=== PATIENT | male | born 1955 | race Caucasian/White ===

== ENCOUNTER → 2017-09-27 10:33 | Outpatient (CLI) | payer MEDICARE, SELFPAY ==
--- NOTE | 2017-09-27 10:37 | ECHOD_ITS ---
Reason For Study: Aortic Stenosis Procedure This was a 2D Doppler, Color Flow transthoracic echocardiogram. The study was technically difficult. Due to body habitus. Exam performed in department. Left Ventricle Normal LV size. Moderately severe segmental systolic dysfunction (see wall motion). The estimated ejection fraction is 30 %. Anterio-Basal: Normal. Lateral-Basal: Normal. Infero-Basal: Akinetic. Mid-Lateral : Normal. Mid-Posterior: Normal. Posterior-Basal: Normal. Mid-anteroseptal : Akinetic. Rest of the vera hypokinetic. Right Ventricle Normal RV size. Normal systolic function. Atria Normal left atrium. Normal right atrium. Mitral Valve Normal mitral valve. Tricuspid Valve Normal tricuspid valve. Mild (1+) tricuspid valve insufficiency. Aortic Valve Trisinus/trileaflet aortic valve. Mild focal aortic valve calcification. Peak aortic valve gradient 48 mmHg. Mean aortic valve gradient 28 mmHg. Calculated aortic valve area (continuity equation) is 0.8 cm2. Mild (1+) eccentric aortic valve insufficiency. Pulmonic Valve Normal pulmonic valve. Great Vessels Normal aortic root. The pulmonary artery is normal size. Normal inferior vena cava. Pericardium/Pleural No pericardial effusion. MMode/2D Measurements & Calculations LVIDd: 5.3 cm IVSd: 1.1 cm LVOT diam: 2.2 cm LVIDs: 4.3 cm LVPWd: 1.1 cm LVOT area: 3.9 cm2 RVDd: 2.8 cm FS: 18.8 % Ao root diam: 2.9 cm LAV(MOD-bp): 56.6 ml LA A4 area: 19.2 cm2 LA dimension: 3.9 cm LAV(MOD-bp) Indexed: 25.4 ml/m2 LAV(MOD-sp2): 51.4 ml LAV(MOD-sp4): 58.8 ml RA A4 area: 10.5 cm2 Doppler Measurements & Calculations MV E max ronnie: 96.0 cm/sec Lat Peak E' Ronnie: 8.2 cm/sec Med Peak E' Ronnie: 5.6 cm/sec MV A max ronnie: 124.5 cm/sec E/E' lat: 11.7 E/E' med: 17.1 MV E/A: 0.77 Ao V2 max: 345.7 cm/sec AI max ronnie: 404.7 cm/sec LV V1 max: 71.3 cm/sec Ao max P.8 mmHg AI max P.7 mmHg LV V1 max P.0 mmHg Ao V2 mean: 253.6 cm/sec AI dec slope: 369.2 cm/sec2 LV V1 mean P.93 mmHg Ao mean P.0 mmHg AI P1/2t: 321.0 msec LV V1 mean: 45.5 cm/sec Ao V2 VTI: 73.7 cm LV V1 VTI: 16.8 cm JAIME(I,D): 0.90 cm2 JAIME(V,D): 0.81 cm2 SV(LVOT): 66.2 ml PA V2 max: 115.3 cm/sec TR max ronnie: 210.4 cm/sec TR max P.7 mmHg Interpretation Summary Normal LV size. Moderately severe segmental systolic dysfunction (see wall motion). The estimated ejection fraction is 30 %. Mild focal aortic valve calcification. Mean aortic valve gradient 28 mmHg. Mild (1+) eccentric aortic valve insufficiency. Calculated aortic valve area (continuity equation) is 0.8 cm2. Low flow low gradient likely Ordering Physician: Diann Arroyo Performed By: Sada Gonzalez RDCS, RVT
== END ==
PROVIDERS: Visit Provider Physician Assistant Medical
DX: I35.0 Nonrheumatic aortic (valve) stenosis (principal); I43 Cardiomyopathy in diseases classified elsewhere
CPT/HCPCS: 93306

== ENCOUNTER → 2017-10-04 09:07 | Outpatient (CLI) | payer MEDICARE, SELFPAY ==
--- NOTE | 2017-10-04 09:10 | RAD_ITS ---
STUDY: X-RAY CHEST REASON FOR EXAM: Male, 62 years old. Pre heart catheter. TECHNIQUE: Frontal and lateral views of the chest. COMPARISON: None. FINDINGS: The lungs are clear and expanded. There is no demonstrated pleural abnormality. Normal size heart. Normal mediastinum and merrick. Normal visualized pulmonary arteries. Normal visualized aortic arch and descending thoracic aorta. There are diffuse degenerative changes of the visualized thoracic spine. Previous cervical spine surgery. Normal visualized ribs, clavicles, and shoulders. There is no demonstrated abnormality of the visualized soft tissue structures of the upper abdomen. RAD/Chest PA and Lateral IMPRESSION: No acute chest disease. Electronically Signed: Earnest Booker MD at 16:52 EDT , Service support ,
[2017-10-04 10:09] LABS: Hematocrit 45.8 % (40-54); Hemoglobin 15.6 g/dl (13.0-16.5); Mean Corp Hgb Conc 34.1 g/gl (32-36); Mean Corpuscular Hgb 28.9 pg (27.0-32.0); Mean Platelet Vol. 10.4 fl (6.2-12.0); Platelet Count 181 K/mm3 (150-450); RBC Distribution Width CV 13.5 % (11.6-14.6); RBC Distribution Width SD 41.9 fl (35.1-43.9); Red Blood Count 5.39 M/mm3 (4.6-6.2); White Blood Count 6.7 K/mm3 (4.4-11.0)
[2017-10-04 10:14] LABS: Scan Indicated on CBC? Y/N NO
[2017-10-04 10:34] LABS: Anion Gap 8 (5-15); BUN 23 mg/dL (7-18); BUN/Creat Ratio 16.5 RATIO (10-20); Calcium,Total 9.2 mg/dL (8.5-10.1); Chloride 100 mmol/L (98-107); Creatinine, Serum 1.39 mg/dL (0.70-1.30); EST Glomerular Filtration Rate 55 mL/min (>60); Est Glom Filt Rate - Afr Amer 67 mL/min (>60); Glucose 226 mg/dL (74-106); Potassium 4.4 mmol/L (3.5-5.1); Sodium Level 135 mmol/L (136-145)
== END ==
PROVIDERS: Visit Provider Internal Medicine Cardiovascular Disease
DX: I50.9 Heart failure, unspecified (principal); I43 Cardiomyopathy in diseases classified elsewhere; I35.0 Nonrheumatic aortic (valve) stenosis
CPT/HCPCS: 36415; 71046; 80048; 85027

== ENCOUNTER → 2017-10-11 06:45 | Day surgery (SDC) | payer MEDICARE, SELFPAY ==
[2017-10-08 09:34] VITALS: BMI 36.1
[2017-10-11 10:36] LABS: Blood Gas Specimen Type VEN; VBG BASE EXCESS -2 mmol/L (-1.0-3.5); VBG Bicarbonate 23 mmol/L (22-26); VBG Oxygen Content 25 mmol/L (23-33); VBG PO2 39 mmHg (25-40); VBG SO2 71 % (50-70); VBG pCO2 42.4 mmHg (41-51); VBG pH 7.35 (7.32-7.42)
[2017-10-11 10:36] LABS: Base Excess -4 mmol/L (-2 to +2); Bicarbonate 20.7 mmol/L (22-26); Blood Gas Specimen Type ART; PO2 87 mmHG (75-100); SO2 97 % (95-99); Total Carbon Dioxide 22 mmol/L; pCO2 34.1 mmHg (35-45); pH 7.39 (7.35-7.45)
[2017-10-11 10:36] LABS: Blood Gas Specimen Type VEN; VBG BASE EXCESS -9 mmol/L (-1.0-3.5); VBG Bicarbonate 18 mmol/L (22-26); VBG Oxygen Content 19 mmol/L (23-33); VBG PO2 39 mmHg (25-40); VBG SO2 69 % (50-70); VBG pCO2 36.3 mmHg (41-51)
--- NOTE | 2017-10-11 10:46 | CL.D_ITS ---
Patient Name: RIGOBERTO NOLAND Study Date: 10/11/2017 Performing: Rui Walters MD Ht: 68.89 inches 175 cm : 1955 Wt: 244.71 lbs 111 kg Age: 62 Gender: male BSA: 2.25 PROCEDURE(S) PERFORMED ZJ15-MAT/LHC/COR/LV CLINICAL PROFILE AND INDICATIONS Indications: Other Heart Failure: None Stress/Imaging Stress/Image Study Performed: No Angina Classification Anginal Classification w/in 2 Weeks: No symptoms CAD Presentations: No Sxs, no angina. CONCLUSIONS Coronary artery disease with stenosis involving the diagonal branch, proximal circumflex artery, prox imal and distal right coronary artery. RECOMMENDATIONS Surgery consult for coronary revascularization Surgery consult for Valve Replacement surgery DESCRIPTION OF PROCEDURE The patient arrived to the procedure lab. The risks and benefits of the procedure as well as a full d escription of our services here and current unavailability of surgical backup were fully explained to the patient and/or their significant other prior to the catheterization. The Timeout was completed, verifying the correct patient and procedure. The patient's procedural site was prepped and draped in the usual fashion. Local anesthetic was given subcutaneously to right groin region with Lidocaine 2%. Using a modified Seldinger technique, arterial access was obtained via the right femoral artery, a 5 Fr sheath was inserted. Venous access was obtained via the right femoral vein, a 7Fr sheath was inser roberta. A 7Fr thermal dilution catheter was inserted and right heart pressures were recorded, it was the n advanced to PA position for cardiac outputs. O2 saturations were then obtained. The Thermal dilutio n catheter was then removed. Left Coronary Artery selective angiography was performed in multiple vie ws using a 5 Fr. JL4 catheter. Right Coronary Artery selective angiography was then performed in mult iple views using a 5 Fr. 3DRC (Anselmo) catheter. Left Ventriculography was performed in SALAZAR project ion using a 5 Fr. Pigtail catheter.The arterial sheath was pulled and a Mynx closure device was deplo yed for hemostasis. The venous sheath was then pulled and manual compression applied until hemostasis achieved CORONARY ANGIOGRAPHY DOMINANCE: Right Dominant LEFT HEART ASSESSMENT Left Ventricular Ejection Fraction: by LV Gram 35 % Depressed Left Ventricular systolic function RIGHT HEART ASSESSMENT Thermal CO: 5.58 Thermal CI: 2.48 Debra CO: 5.04 Debra CI: 2.24 PW: 24 PA: 39/9 29 RV: 41/8 11 RA: 7 8 PVR: 72 SVR: 1090 Aortic Valve Area: 0.82 Aortic Valve Index: 0.37 Aortic Valve Mean Gradient: 36.8 LEFT MAIN: Mild calcification, Angiographically normal LEFT ANTERIOR DECENDING ARTERY: Moderate calcification PROX LAD: Moderate luminal irregularities up to 50% DIAGONAL 1: Proximal - 80 % Stenosis CIRCUMFLEX ARTERY: PROX CIRC: 80 % Stenosis MID CIRC: Moderate luminal irregularities up to 50% RAMUS: Mild luminal irregularities RIGHT CORONARY ARTERY: PROX RCA: 85 % Stenosis MID RCA: Mild luminal irregularities less than 30% DISTAL RCA: Bifurcation of the posterior lateral as well as the right coronary artery posterior desce nding artery both have proximal 70-80% stenotic lesion. VALVE FINDINGS: Aortic Valve Stenosis - severe COMPLICATIONS No Complications PROCEDURE MEDICATIONS Versed 1 mg IV Benadryl 50 mg IV @ 10/11/2017 09:46:33 Solu-medrol 125 mg IV 10/11/2017 09:46:45 SUMMARY OF HEMODYNAMIC DATA Time AIR REST ECG 07:19:24 RA 107 (8) SV 10:01:33 RV 41/8, 11 10:01:56 PW (24) PV 10:02:22 PA 39/9 (29) PA 10:02:39 PA 39/17 (29) 10:05:56 RV 40/6, 10 10:06:06 RA 9/8 (8) 10:06:22 AO 102/70 (84) SA 10:07:47 LV 154/20, 26 10:14:22 LV 165/0, 22 10:14:43 LV 162/3, 34 10:15:50 LVp 158/0, 35 10:16:02 AOp 120/68 (92) 10:16:07 Valve Area (c P-P/ms Time AIR REST Aortic 0.82 36.8 mn/284 ms 38.0 pk/284 ms 10:16:02 Type SV CO (l/m) CI (l/m/ HR Time AIR REST Thermal 58.10 5.58 2.48 96 07:19:24 Debra 52.50 5.04 2.24 96 07:19:24 Label % O2 Pres/Loc Time AIR REST AO 97 PV 10:10:23 RA 69 SV 10:10:30 PA 71 PA 10:10:37 Signed By Rui Walters MD On 10/11/2017 10:46:07 Rui Walters MD
== END ==
PROVIDERS: Visit Provider Internal Medicine Cardiovascular Disease
DX: I25.10 Atherosclerotic heart disease of native coronary artery without angina pectoris (principal); I43 Cardiomyopathy in diseases classified elsewhere; I35.0 Nonrheumatic aortic (valve) stenosis; E78.5 Hyperlipidemia, unspecified; I50.9 Heart failure, unspecified; E11.51 Type 2 diabetes mellitus with diabetic peripheral angiopathy without gangrene; I70.209 Unspecified atherosclerosis of native arteries of extremities, unspecified extremity; R01.1 Cardiac murmur, unspecified; Z98.1 Arthrodesis status; Z79.84 Long term (current) use of oral hypoglycemic drugs; Z79.899 Other long term (current) drug therapy
CPT/HCPCS: 82803; 93460; 99152; 99153; C1760; J7030; A4216; C1751; C1769; C1894; Q9967

== ENCOUNTER → 2017-12-27 09:45 | Outpatient (CLI) | payer MEDICARE, SELFPAY ==
[2017-12-27 10:25] LABS: International Normalized Ratio 2.8; Prothrombin Time (Protime)PT. 29.3 SECONDS (11.7-14.9)
== END ==
PROVIDERS: Visit Provider Internal Medicine Cardiovascular Disease
DX: Z95.2 Presence of prosthetic heart valve (principal); Z79.01 Long term (current) use of anticoagulants
CPT/HCPCS: 36415; 85610

== ENCOUNTER → 2018-01-10 09:29 | Outpatient (CLI) | payer MEDICARE, SELFPAY ==
[2018-01-10 10:25] LABS: International Normalized Ratio 1.6; Prothrombin Time (Protime)PT. 19.3 SECONDS (11.7-14.9)
== END ==
PROVIDERS: Visit Provider Internal Medicine Cardiovascular Disease
DX: Z95.2 Presence of prosthetic heart valve (principal); Z79.01 Long term (current) use of anticoagulants
CPT/HCPCS: 36415; 85610

== ENCOUNTER 2018-01-24 08:53 | Outpatient (RCR) | payer MEDICARE, SELFPAY ==
[2018-01-24 10:29] LABS: International Normalized Ratio 2.1; Prothrombin Time (Protime)PT. 23.4 SECONDS (11.7-14.9)
== END 2018-01-24 10:00 | disposition home or self-care (01) ==
LOC: LAB 08:53
PROVIDERS: Visit Provider Internal Medicine Cardiovascular Disease
DX: Z95.2 Presence of prosthetic heart valve (principal); Z79.01 Long term (current) use of anticoagulants
CPT/HCPCS: 36415; 85610

== ENCOUNTER 2018-02-21 09:14 | Outpatient (RCR) | payer MEDICARE, SELFPAY ==
[2018-02-07 10:29] LABS: International Normalized Ratio 1.9; Prothrombin Time (Protime)PT. 22.2 SECONDS (11.7-14.9)
[2018-02-21 09:54] LABS: Absolute Lymphocyte Count 0.82 X10^3/ul (0.83-4.51); Absolute Neutrophil Count 5.8 X10^3/uL (2.0-7.7); Basophil# 0.01 X10^3/uL; Basophil% 0.1 % (0-1); Eosinophil# 0.27 X10^3/uL; Eosinophils% 3.7 % (0-5); Hematocrit 45.3 % (40-54); Hemoglobin 13.9 g/dl (13.0-16.5); Lymphocyte # 0.82 X10^3/ul (4.0); Lymphocyte % 11.2 % (19-41); Mean Corp Hgb Conc 30.7 g/gl (32-36); Mean Corpuscular Hgb 24.6 pg (27.0-32.0); Mean Corpuscular Volume 80.2 fL (80-94); Mean Platelet Vol. 9.4 fl (6.2-12.0); Monocyte# 0.39 X10^3/uL; Monocyte% 5.3 % (0-10); Neutrophil # 5.83 X10^3/uL (2.7-7.7); Neutrophil % 79.6 % (47-70); Platelet Count 171 K/mm3 (150-450); RBC Distribution Width CV 17.3 % (11.6-14.6); RBC Distribution Width SD 50.5 fl (35.1-43.9); Red Blood Count 5.65 M/mm3 (4.6-6.2); White Blood Count 7.3 K/mm3 (4.4-11.0)
[2018-02-21 09:59] LABS: POSITIVE COUNT NO; POSITIVE DIFFERENTIAL NO; POSITIVE MORPHOLOGY NO
[2018-02-21 10:05] LABS: International Normalized Ratio 2.4; Prothrombin Time (Protime)PT. 25.9 SECONDS (11.7-14.9)
[2018-02-21 10:21] LABS: Anion Gap 7 (5-15); BUN 20 mg/dL (7-18); BUN/Creat Ratio 15.2 RATIO (10-20); Calcium,Total 8.9 mg/dL (8.5-10.1); Chloride 104 mmol/L (98-107); Creatinine, Serum 1.32 mg/dL (0.70-1.30); EST Glomerular Filtration Rate 58 mL/min (>60); Est Glom Filt Rate - Afr Amer 71 mL/min (>60); Glucose 177 mg/dL (74-106); Potassium 3.8 mmol/L (3.5-5.1); Sodium Level 137 mmol/L (136-145)
== END 2018-02-21 11:00 | disposition home or self-care (01) ==
LOC: LAB 09:14
PROVIDERS: Visit Provider Internal Medicine Cardiovascular Disease
DX: Z01.810 Encounter for preprocedural cardiovascular examination (principal); Z95.2 Presence of prosthetic heart valve; Z79.01 Long term (current) use of anticoagulants
CPT/HCPCS: 36415; 80048; 85025; 85610

== ENCOUNTER 2018-03-14 09:03 | Outpatient (RCR) | payer MEDICARE, SELFPAY ==
[2018-03-14 09:55] LABS: International Normalized Ratio 3.3; Prothrombin Time (Protime)PT. 33.9 SECONDS (11.7-14.9)
== END 2018-03-28 09:29 | disposition home or self-care (01) ==
LOC: LAB 09:03
PROVIDERS: Visit Provider Internal Medicine Cardiovascular Disease
DX: Z95.2 Presence of prosthetic heart valve (principal); Z79.01 Long term (current) use of anticoagulants
CPT/HCPCS: 36415; 85610

== ENCOUNTER 2018-04-18 09:15 | Outpatient (RCR) | payer MEDICARE, SELFPAY ==
[2018-03-28 14:37] LABS: International Normalized Ratio 2.6; Prothrombin Time (Protime)PT. 27.9 SECONDS (11.7-14.9)
[2018-04-18 10:03] LABS: International Normalized Ratio 2.4
== END 2018-04-18 11:00 | disposition home or self-care (01) ==
LOC: LAB 09:15
PROVIDERS: Referring Provider Internal Medicine Cardiovascular Disease; Visit Provider Internal Medicine Cardiovascular Disease
DX: Z95.2 Presence of prosthetic heart valve (principal); Z79.01 Long term (current) use of anticoagulants
CPT/HCPCS: 36415; 85610

== ENCOUNTER 2018-05-16 09:33 | Outpatient (RCR) | payer MEDICARE, SELFPAY ==
[2018-05-12 15:40] VITALS: BMI 36.3
[2018-05-16 10:30] LABS: International Normalized Ratio 2.6; Prothrombin Time (Protime)PT. 27.9 SECONDS (11.7-14.9)
== END 2018-05-27 12:18 | disposition home or self-care (01) ==
LOC: LAB 09:33
PROVIDERS: Referring Provider Internal Medicine Cardiovascular Disease; Visit Provider Internal Medicine Cardiovascular Disease
DX: Z95.2 Presence of prosthetic heart valve (principal); Z79.01 Long term (current) use of anticoagulants
CPT/HCPCS: 36415; 85610

== ENCOUNTER 2018-06-13 10:05 | Outpatient (RCR) | payer MEDICARE, SELFPAY ==
[2018-05-12 15:40] VITALS: BMI 36.3
[2018-06-13 11:26] LABS: International Normalized Ratio 2.3
--- OUTSIDE RECORDS SUMMARY | 2018-09-14 22:57 | XMS RPT_ITS | Summary of Care ---
:1955 Author Organization [facility] Address [address] [place] [address] Care Team Providers Name Role Phone Clyde Ramachandran DO Primary Care Provider Clyde Aguilar MD Unavailable Encounter Details Date Type Department Care Team Description 03/21/2018 PaceArt Device Check [facility] Heart & Vascular Arrived Physicians [address] [facility] [place] [address] Allergies Active Allergy Reactions Severity Noted Date Comments Meperidine 10/21/2017 Shellfish Derived 10/21/2017 as of this encounter Medications Prescription Sig. Disp. Refills Start Date End Date Status carvedilol (COREG) 25 Take 12.5 mg by 11/17/2017 Active MG tablet mouth 2 (two) times a day . acetaminophen Take 650 mg by Active (TYLENOL) 325 MG mouth every 6 tablet (six) hours as needed for fever or pain. amiodarone (CORDARONE) Take 200 mg by Active 200 MG tablet mouth daily . aspirin 81 mg chewable Chew and Swallow Active tablet 81 mg daily. esomeprazole (NEXIUM) Take 40 mg by Active 40 MG capsule mouth daily. insulin regular Inject 24 Units Active (HumuLIN R Regular under the skin 3 U-100 Insuln) 100 (three) times a unit/mL injection day before meals. 24 units with breakfast, 18 units with lunch, 24 units with dinner insulin NPH Inject 16 Units Active (HumuLIN,NovoLIN) 100 under the skin unit/mL injection nightly. warfarin (COUMADIN) 5 Take 5 mg by 12/17/2017 Active MG tablet mouth nightly as needed Take as directed per INR. docusate sodium Take 100 mg by Active (COLACE) 100 MG mouth 2 (two) capsule times a day. 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 as of this encounter Active Problems Problem Noted Date CAD (coronary artery disease) 11/09/2017 Essential hypertension 11/09/2017 Diabetes mellitus, type 2 (HCC) 11/09/2017 Hypercholesterolemia 11/09/2017 Aortic valve stenosis 11/09/2017 Social History Tobacco Use Types Packs/Day Years Used Date Never Smoker Smokeless Tobacco: Never Used Alcohol Use Drinks/Week oz/Week Comments No Sex Assigned at Date Recorded Not on file as of this encounter Plan of Treatment Upcoming Encounters Date Type Specialty Care Team Description 04/13/2018 Office Visit Endocrinology [facility], Pooja De Souza, SHEET METAL MECHANIC [address] [facility] [address] [place] [address] [phone] 04/26/2018 PaceArt Device Check Cardiology 04/26/2018 Clinical Support Cardiology Health Maintenance Due Date Last Done Comments CLASS III : ALT 1955 CLASS III : AST 1955 CLASS III : CXR 1955 CLASS III : EKG 1955 CLASS III : PFT 1955 CLASS III : TSH 1955 COLONOSCOPY 1955 HEPATITIS C SCREENING 1955 TETANUS EVERY 10 YR 1955 OPHTHALMOLOGY EXAM 1965 URINE MICROALBUMIN 1965 ZOSTER VACCINES (1 of 2) 2005 SEQUENTIAL INFLUENZA VACCINE (#1) 2018 HEMOGLOBIN A1C 04/22/2018 10/21/2017 FOOT EXAM 10/27/2018 10/27/2017 CLASS III : OFFICE VISIT 02/14/2019 02/14/2018, 01/11/2018, 10/27/2017, Additional history exists as of this encounter Implants Implanted Type Area Rotary Swaging Machine Operator Device Expiration Date Model / Identifier Serial / Lot Anthony [id number] Visia Af Mri Xt Vr [id number] ICD ANTHONY [id number] VISIA AF MRI XT VR / Implanted: 03/01/2018 (Quantity not on file) [id number] / Anthony 6935m Pacing Lead ANTHONY 6935M SPRINT QUATTRO SECURE S MRI SURESCAN / Sprint Quattro [id number] / Secure S Mri Surescan [id number] as of this encounter Procedures Procedure Name Priority Date/Time Associated Diagnosis Comments PACEART DEVICE Routine 03/21/2018 7:19 PM Results for this CHECK EDT procedure are in the results section. in this encounter Results Device Check (03/21/2018 7:19 PM) Date Time Interrogation [id number] [facility] Session Implantable Pulse Generator Medtronic [facility] Rotary Swaging Machine Operator Implantable Pulse Generator [id number] Visia AF MRI XT VR [facility] Model Implantable Pulse Generator [id number] [facility] Serial Number Implantable Pulse Generator Defibrillator [facility] Type Implantable Pulse Generator [id number] [facility] Implant Date Implantable Lead Rotary Swaging Machine Operator Medtronic [facility] Implantable Lead Model 6935M Sprint Quattro Secure S [facility] MRI SureScan Implantable Lead Serial [id number] [facility] Number Implantable Lead Implant Date [id number] [facility] Performing Organization Address City/State/Zipcode Phone Number [facility] [address] [facility] [place] [address] in this encounter
--- OUTSIDE RECORDS SUMMARY | 2018-09-14 22:57 | XMS RPT_ITS | Summary of Care ---
:[address] [facility] Address [address] [place] [address] Care Team Providers Name Role Phone Clyde Ramachandran DO Primary Care Provider Clyde Aguilar MD Unavailable Encounter Details Date Type Department Care Team Description 04/26/[address] 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 lisinopril Take 1 (one) 30 tablet 11 04/13/2018 04/13/2019 Active (PRINIVIL,ZESTRIL) 5 tablet (5 mg MG tablet total) by mouth daily. as of this encounter Active Problems [...] Encounters Date Type Specialty Care Team Description 08/02/2018 PaceArt Device Check Cardiology 08/18/2018 Office Visit Endocrinology Jerod Phoenix, NETWORK TECHNOLOGY INSTRUCTOR [address] [facility] [address] [place] [id number] [phone] Health Maintenance Due Date Last Done Comments [...] 10/27/2018 10/27/2017 CLASS III : OFFICE VISIT 04/13/2019 04/13/2018, 02/14/2018, 01/11/2018, Additional history exists as of this encounter Implants Implanted Type Area Personnel Manager Device Expiration Date Model / Identifier Serial / Lot Mdt [id number] Visia Af Mri Xt Vr [id number] ICD MDT [id number] VISIA AF MRI XT VR / Implanted: 03/01/2018 (Quantity not on file) [id number] / Antwon 6935m Pacing Lead MDT 6935M SPRINT QUATTRO SECURE S MRI SURESCAN / Sprint Quattro [id number] / Secure S Mri Surescan [id number] as of this encounter Procedures Procedure Name Priority Date/Time Associated Comments Diagnosis OUTPATIENT DEVICE Routine 04/26/2018 12:54 PM Results for this CLINIC REFERRAL EDT procedure are in the results section. in this encounter Results Outpatient Device Clinic Referral (04/26/2018 12:54 PM) Date Time Interrogation [id number] [facility] Session Implantable Pulse Generator Medtronic [facility] Personnel Manager Implantable Pulse Generator [id number] Visia AF MRI XT VR [facility] Model Implantable Pulse Generator [id number] [facility] Serial Number Implantable Pulse Generator Defibrillator [facility] Type Implantable Pulse Generator [id number] [facility] Implant Date Implantable Lead Personnel Manager Medtronic [facility] Implantable Lead Model 6935M Sprint Quattro Secure S [facility] MRI SureScan Implantable Lead Serial [id number] [facility] Number Implantable Lead Implant Date [id number] [facility] Performing Organization Address City/State/Zipcode Phone Number [facility] [address] [place] [address] in this encounter
--- OUTSIDE RECORDS SUMMARY | 2018-09-14 22:57 | XMS RPT_ITS | Summary of Care ---
:1955 Author Organization [facility] Address [address] [place] [address] Care Team Providers Name Role Phone Clyde Ramachandran DO Primary Care Provider Clyde Aguilar MD Unavailable Encounter Details Date Type Department Care Team Description 05/27/2018 Documentation [facility] Heart & Vascular Estelle Curiel RN Physicians [address] [place] [address] [place] [address] Allergies Active Allergy Reactions Severity [...] Not on file as of this encounter Progress Notes Estelle Curiel RN - 05/27/2018 1:20 PM ESTErrorin this encounter Plan of Treatment Upcoming Encounters Date Type Specialty Care Team Description 08/02/2018 PaceArt Device Check Cardiology 08/18/2018 Office Visit Endocrinology Jerod Phoenix, REPORT PROGRAMMER [address] [place] [address] [phone] Health Maintenance Due Date Last Done Comments [...] of this encounter Implants Implanted Type Area Account Administrator Device Expiration Date Model / Identifier Serial / Lot Anthony [id number] Visia Af Mri Xt Vr [id number] ICD MDT [id number] VISIA AF MRI XT VR / Implanted: 03/01/2018 (Quantity not on file) [id number] / Anthony 6935m Pacing Lead ANTHONY 6935M SPRINT QUATTRO SECURE S MRI SURESCAN / Sprint Quattro [id number] / Secure S Mri Surescan [id number] as of this encounter
--- OUTSIDE RECORDS SUMMARY | 2018-09-14 22:57 | XMS RPT_ITS | Summary of Care ---
:1955 Author Organization [facility] Address [address] [place] [address] Care Team Providers Name Role Phone Clyde Ramachandran DO Primary Care Provider Clyde Aguilar MD Unavailable Reason for Visit Reason Comments Optivol Education Encounter Details Date Type Department Care Team Description 04/26/2018 Clinical Support [facility] Heart & Arina Ramos CMA Vascular Physicians [address] [facility] [place] [address] Allergies Active Allergy Reactions Severity [...] Not on file as of this encounter Instructions Patient Instructions - Arina Ramos CMA - 04/26/2018 9:36 AM EDTPlease have construction checker call [facility] Heart and Vascular if they would like us to monitor Optivollevels and fax to them. Reviewed by EMELYN Bhatia Contact Arina Ramos CMA [phone] in this encounter Progress Notes Arina Ramos CMA - 04/26/2018 9:35 AM EDTDiscussed Optivol Monitoring. Pt follows general cardiology at [place]. Advised pt to discuss with construction checker if they would like us to monitor Optivol and send to them. Pt agreeablein this encounter Plan of Treatment Upcoming Encounters Date Type Specialty Care Team Description 08/02/2018 PaceArt Device Check Cardiology 08/18/2018 Office Visit Endocrinology Jerod Phoenix, DISH WASHER [address] [place] [address] [phone] Health Maintenance Due Date Last Done Comments [...] of this encounter Implants Implanted Type Area Application Processor Device Expiration Date Model / Identifier Serial / Lot Mdt [id number] Visia Af Mri Xt Vr [id number] ICD MDT [id number] VISIA AF MRI XT VR / Implanted: 03/01/2018 (Quantity not on file) [id number] / Anthony 6935m Pacing Lead ANTHONY 6935M SPRINT QUATTRO SECURE S MRI SURESCAN / Sprint Quattro [id number] / Secure S Mri Surescan [id number] as of this encounter
--- OUTSIDE RECORDS SUMMARY | 2018-09-14 22:57 | XMS RPT_ITS | Summary of Care ---
:1955 Author Organization [facility] Address [address] [place] [address] Care Team Providers Name Role Phone Clyde Ramachandran DO Primary Care Provider Clyde Aguilar MD Unavailable Reason for Visit Reason Comments Diabetes Mellitus Encounter Details Date Type Department Care Team Description 04/13/2018 Office Visit [facility] Pooja Collazo Type 2 diabetes mellitus with chronic kidney disease, without long-term current use of insulin, unspecified CKD stage (HCC) (Primary Dx); Endocrinology JOANIE De Souza Essential hypertension; Physicians [address] Long-term use of high-risk medication [address] [place] [phone] Allergies Active Allergy Reactions Severity Noted [...] Not on file as of this encounter Last Filed Vital Signs Vital Sign Reading Time Taken Blood Pressure 163/91 04/13/2018 2:01 PM EDT Pulse 102 04/13/2018 2:01 PM EDT Temperature - - Respiratory Rate - - Oxygen Saturation - - Inhaled Oxygen Concentration - - Weight 110.2 kg (243 lb) 04/13/2018 2:01 PM EDT Height 170.2 cm (5' 7) 04/13/2018 2:01 PM EDT Body Mass Index 38.06 04/13/2018 2:01 PM EDT in this encounter Instructions Patient Instructions - Pooja Collazo CNP - 04/13/2018 2:46 PM EDT Continue NPH 20 units at bedtime Continue Regular 26 units at breakfast, 16 units at lunch and 28 units at dinner plus sliding scale If Blood sugar 150-200: take 2 extra units 201-250 take 4 extra units 251-300 take 6 extra units 301-350 take 8 extra units 351-400 take 10 extra units 401- greater take 10 extra units and call Dr Cabrera's office Think about a free style zhanna (continuous glucose monitor)- it may cost approx $50 month with medicare. If you want us to order this, please let you know.in this encounter Progress Notes Pooja Collazo CNP - 04/13/2018 12:53 PM EDTFormatting of this note may be different from the original. Subjective Patient ID: Anil Mckinney is a 62 y.o. male. Diabetes He presents for his follow-up diabetic visit. He has type 2 diabetes mellitus. Onset time: 2007. Hisdisease course has been stable. (Aware of BG ~ 70) Associated symptoms include foot paresthesias (minimal numbness in feet since CABG). Pertinent negatives for diabetes include no blurred vision, no chest pain, no fatigue, no foot ulcerations, no polydipsia, no polyphagia, no polyuria, no visual change, no weakness and no weight loss. Symptoms are stable. Diabetic complications include heart disease (CABG October 2017) and nephropathy. Pertinent negatives for diabetic complications include no autonomic neuropathy, peripheral neuropathy or retinopathy. He is compliant with treatment all of the time. He is currently taking insulin pre-breakfast, pre-lunch, pre-dinner and at bedtime (26 R / 16R/ 28R/ 20 N). His weight is stable. He is following a generally healthy diet. Exercise: started [facility] 01/10/18. Frequency home blood tests: QID. (Pre-breakfast: 74-196 Pre-lunch: 59-193 Pre-dinner: 74-209 Bedtime: 87-222) An OZ inhibitor/angiotensin II receptor mary is not being taken. He does not see a ethanol quality leader.Eye exam is current (Jun 2017). The following portions of the patient's history were reviewed and updated as appropriate: allergies,current medications, past family history, past medical history, past social history, past surgical history and problem list. Review of Systems Constitutional: Negative for appetite change, fatigue, unexpected weight change and weight loss. Eyes: Negative for blurred vision and visual disturbance. Respiratory: Negative for cough, chest tightness, shortness of breath and wheezing. Cardiovascular: Negative for chest pain, palpitations and leg swelling. Gastrointestinal: Negative for abdominal distention, abdominal pain, constipation, diarrhea, nausea and vomiting. Endocrine: Negative for polydipsia, polyphagia and polyuria. Skin: Negative for wound. Neurological: Negative for weakness and numbness. Objective BP (!) 163/91 Pulse (!) 102 Ht 5' 7 Wt 110.2 kg (243 lb) BMI 38.06 kg/m?? BP Readings from Last 3 Encounters: 04/13/18 (!) 163/91 02/14/18 (!) 150/91 02/11/18 (!) 147/94 Wt Readings from Last 3 Encounters: 04/13/18 110.2 kg (243 lb) 02/14/18 110.2 kg (243 lb) 01/11/18 110.7 kg (244 lb) BMI: Estimated body mass index is 38.06 kg/m?? as calculated from the following: Height as of this encounter: 5' 7. Weight as of this encounter: 110.2 kg (243 lb). Physical Exam Constitutional: He is oriented to person, place, and time. He appears well- developed and well-nourished. No distress. HENT: Head: Normocephalic and atraumatic. Mouth/Throat: Oropharynx is clear and moist. Eyes: EOM are normal. Neck: Normal range of motion. Neck supple. No thyromegaly present. Cardiovascular: Normal rate, regular rhythm and normal heart sounds. No murmur heard. +1 DP bilaterally Pulmonary/Chest: Effort normal and breath sounds normal. No respiratory distress. He has no wheezes.He has no rales. Musculoskeletal: He exhibits edema (slight left foot/ankle edema). Neurological: He is alert and oriented to person, place, and time. No sensory deficit. Skin: Skin is warm and dry. No onychomycosis. Left 2nd and 3rd toes ecchymotic but improving per pt report Psychiatric: Judgment normal. Vitals reviewed. Assessment/Plan: Type 2 diabetes, under improving control Anil Mckinney presents for follow-up of Type 2 diabetes Patient is s/p open heart/avr surgery on 11/10/17. Patient is taking 26R/ 16R/ 28R/ 20 N at HS. Hgb A1C improved to 6.5% on 04/05/18 from 8.9% on 09/2017 and he is feeling better. He reports being on Metformin and Glimepiride prior to CABG 2017. SMBG reviewed- BG levels seem to be decreasing if/when he is active. Plan: Patient Instructions Continue NPH 20 units at bedtime Continue Regular 26 units at breakfast, 16 units at lunch and 28 units at dinner plus sliding scale If Blood sugar 150-200: take 2 extra units 201-250 take 4 extra units 251-300 take 6 extra units 301-350 take 8 extra units 351-400 take 10 extra units 401- greater take 10 extra units and call Dr Cabrera's office Think about a free style zhanna (continuous glucose monitor)- it may cost approx $50 month with medicare. If you want us to order this, please let you know. Decrease insulin 2-4 units the meal prior to cardiac rehab or any time you know you will be active in the garage or yard. We want to prevent low blood sugars and encourage you to stay busy and exercise. Retinopathy: Negative Exam within last 12 months: yes Date: Jun 2017. Has cataracts not treated yet by Dr Haines Nephropathy: Positive creatinine 1.74 , K 5.5 on 10/21/17 improved: Cr 1.2, eGFR 61.2 on 04/05/18 Mialb/creat ratio: 32 . Was no longer on lisinopril 10 mg after CABG 09/2017-will resume at 5mg dailyon 04/13/18 & recheck BNP in one month (Apr 2018 since resuming lisinopril)-watch Cr and K Lab Resul Component Value Date CREATININE 1.74 (H) 10/21/2017 Peripheral Neuropathy: Positive. Numbness and tingling dorsal feet off and on Autonomic Neuropathy: Negative , detects low blood sugars in 80's or less Hyperlipidemia: Positive Currently taking: pravastatin (Pravachor). LFT's WNL 04/05/18 Hypertension: Positive. Coreg & furosemide- being adjusted by cardiology Goal <130/80, Elevated last 3 appts. PLAN:Rresume lisinopril, but start with 5 mg daily, but need to monitor kidney function & potassium. Recheck BNP in one month (Apr 2018) BP: 163/91 Cardiac: Positive; S/P CABG x 3 & bioprosthetic AVR 11/10/17. Patient has been released by Dr. Aguilar and continues to follow with cardiology in [place]. Started Cardiac Rehab 12/2017, but had to stopd/t needing an ICD. He remains on amiodarone for postop afib. Going back to cardiac rehab end of . Had ICD Mar 06, 2018. Following with Dr Stafford Vascular: Negative Left foot/ankle edema after CABG 09/2017 Feet: Negative sores or lesions at this time. Last foot exam: 04/13/18 Thyroid: Negative -recheck prior to next appt. Pt is also on Amiodarone, needs monitored Hx of non-Hodgkins lymphoma, tumor near heart, had radiation. LABS- 04/05/18 ([facility]) Hgb A1C 6.5% Cr 1.2, EGFR 61.2, K 4.1 AST 25, ALT 27 T chol 153, Trig 84, HDL 34, LDL 102.2 WBC 6.0, Hgb 14.5, HCt 46.4, Plat 197 MicroAlbCr Ratio: 32 02/21/18 ([facility]) WBC 7.3, Hgb 13.9,Hct 45.3, Plat 171 Cr 1.32, eGFR 58, K 3.8 10/21/17 Hgb a1C 8.9% BG 489, Creat 1.74, K 5.5, eGFR 40 AST 9, ALT 25 WBC 8.3, Hgb 15.8, Hct 48.3, Plt 185k Problem List Items Addressed This Visit Endocrine Diabetes mellitus, type 2 (HCC) - Primary Relevant Orders TSH T4, Free Hemoglobin A1c Comprehensive Metabolic Panel Cardiovascular and Mediastinum Essential hypertension Relevant Medications lisinopril (PRINIVIL,ZESTRIL) 5 MG tablet Other Relevant Orders TSH T4, Free Hemoglobin A1c Comprehensive Metabolic Panel in this encounter Plan of Treatment Upcoming Encounters Date Type Specialty Care Team Description 04/26/2018 PaceArt Device Check Cardiology 04/26/2018 Clinical Support Cardiology 08/18/2018 Office Visit Endocrinology Jerod Phoenix, [employer] SPECIALIST [address] [place] [address] [phone] Scheduled Tests Name Priority Associated Diagnoses Order Schedule TSH Routine Type 2 diabetes mellitus 1 Occurrences starting with chronic kidney 04/13/2018 until disease, without 04/13/2019 long-term current use of insulin, unspecified CKD stage (HCC) Essential hypertension T4, Free Routine Type 2 diabetes mellitus 1 Occurrences starting with chronic kidney 04/13/2018 until disease, without 04/13/2019 long-term current use of insulin, unspecified CKD stage (HCC) Essential hypertension Hemoglobin A1c Routine Type 2 diabetes mellitus 1 Occurrences starting with chronic kidney 04/13/2018 until disease, without 04/13/2019 long-term current use of insulin, unspecified CKD stage (HCC) Essential hypertension Comprehensive Metabolic Routine Type 2 diabetes mellitus 1 Occurrences starting Panel with chronic kidney 04/13/2018 until disease, without 04/13/2019 long-term current use of insulin, unspecified CKD stage (HCC) Essential hypertension Basic Metabolic Panel Routine Essential hypertension 1 Occurrences starting Long-term use of 04/13/2018 until high-risk medication 04/13/2019 Health Maintenance Due Date Last Done Comments [...] of this encounter Implants Implanted Type Area Precision Honing Machine 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 Device Expiration Date Model / Identifier Serial / Lot Mdt [id number] Visia Af Mri Xt Vr [id number] ICD T [id number] VISIA AF MRI XT VR / Implanted: 03/01/2018 (Quantity not on file) [id number] / Anthony 6935m Pacing Lead ANTHONY [id number] SPRINT QUATTRO SECURE S MRI SURESCAN / [employer] Quattro [id number] / Secure S Mri Surescan [id number] as of this encounter Visit Diagnoses Diagnosis Type 2 diabetes mellitus with chronic kidney disease, without long-term current use of insulin, unspecified CKD stage (HCC) - Primary Essential hypertension Unspecified essential hypertension Long-term use of high-risk medication
--- OUTSIDE RECORDS SUMMARY | 2018-09-14 22:58 | XMS RPT_ITS ---
:1955 Author Organization [place] Support Name Relationship Address Phone MARILYNN NOLANDTI Unavailable Unavailable + SPRANG LAMONT Unavailable Unavailable + SPRANG, ASHLY Unavailable Unavailable + SPRANG, LAMONT Unavailable Unavailable + D Unavailable Unavailable Unavailable SPRANG, LAMONT Unavailable [address] + [place] [address] SPRANG, ASHLY Unavailable [address] + [place] [address] SPRANG, ASHLY Unavailable Unavailable + SPRANG, LAMONT Unavailable Unavailable + SPRANG, ASHLY Unavailable [address] + [place] [address] SPRANG, LAMONT Unavailable Unavailable + SPRANG, ASHLY Unavailable [address] + [place] [address] SPRANG, LAMONT Unavailable Unavailable + D Unavailable Unavailable Unavailable SPRANG, LAMONT Unavailable [address] + [place] [address] SPRANG, ASHLY Unavailable [address] + [place] [address] D Unavailable Unavailable Unavailable SPRANG, LAMONT Unavailable [address] + [place] [address] SPRANG, ASHLY Unavailable [address] + [place] [address] D Unavailable Unavailable Unavailable SPRANG, LAMONT Unavailable [address] + [place] [address] SPRANG, ASHLY Unavailable [address] + [place] [address] SPRANG, ASHLY Unavailable [address] + [place] [address] SPRANG, LAMONT Unavailable Unavailable + SPRANG, ASHLY Unavailable Unavailable + SPRANG, LAMONT Unavailable Unavailable + D Unavailable Unavailable Unavailable SPRANG, LAMONT Unavailable [address] + [place] [address] SPRANG, ASHLY Unavailable [address] + [place] [address] D Unavailable Unavailable Unavailable SPRANG, LAMONT Unavailable [address] + [place] [address] SPRANG, ASHLY Unavailable [address] + [place] [address] SPRANG, ASHLY Unavailable Unavailable + SPRANG, LAMONT Unavailable Unavailable + SPRANG, ASHLY Unavailable Unavailable + SPRANG, LAMONT Unavailable Unavailable + SPRANG, ASHLY Unavailable [address] + [place] [address] SPRANG, LAMONT Unavailable Unavailable + SPRANG, ASHLY Unavailable Unavailable + SPRANG, LAMONT Unavailable Unavailable + D Unavailable Unavailable Unavailable SPRANG, LAMONT Unavailable [address] + [place] [address] SPRANG, ASHLY Unavailable [address] + [place] [address] SPRANG, ASHLY Unavailable Unavailable + SPRANG, LAMONT Unavailable Unavailable + SPRANG, ASHLY Unavailable Unavailable + SPRANG, LAMONT Unavailable Unavailable + SPRANG, ASHLY Unavailable Unavailable + SPRANG, LAMONT Unavailable Unavailable + SPRANG, ASHLY Unavailable Unavailable + SPRANG, LAMONT Unavailable Unavailable + D Unavailable Unavailable Unavailable SPRANG, LAMONT Unavailable [address] + [place] [address] SPRANG, ASHLY Unavailable [address] + [place] [address] SPRANG, ASHLY Unavailable Unavailable + SPRANG, LAMONT Unavailable Unavailable + SPRANG, ASHLY Unavailable Unavailable + SPRANG, LAMONT Unavailable Unavailable + SPRANG, ASHLY Unavailable [address] [place] [address] SPRANG, LAMONT Unavailable Unavailable + SPRANG, ASHLY Unavailable [address] + [place] [address] SPRANG, LAMONT Unavailable Unavailable + D Unavailable Unavailable Unavailable SPRANG, LAMONT Unavailable [address] + [place] [address] SPRANG, ASHLY Unavailable [address] + [place] [id number] SPRANG, ASHLY Unavailable Unavailable + SPRANG, LAMONT Unavailable Unavailable + SPRANG, ASHLY Unavailable Unavailable + SPRANG, LAMONT Unavailable Unavailable + SPRANG, ASHLY Unavailable Unavailable + SPRANG, LAMONT Unavailable Unavailable + SPRANG, ASHLY Unavailable [address] + [place] [address] SPRANG, LAMONT Unavailable Unavailable + SPRANG, ASHLY Unavailable Unavailable + SPRANG, LAMONT Unavailable Unavailable + D Unavailable Unavailable Unavailable SPRANG, LAMONT Unavailable [address] + [place] [address] SPRANG, ASHLY Unavailable [address] + [place] [address] SPRANG, ASHYL Unavailable Unavailable + SPRANG, LAMONT Unavailable Unavailable + SPRANG, ASHLY Unavailable Unavailable + SPRANG, LAMONT Unavailable Unavailable + D Unavailable Unavailable Unavailable SPRANG, LAMONT Unavailable [address] + [place] [address] SPRANG, ASHLY Unavailable [address] + [place] [address] D Unavailable Unavailable Unavailable SPRANG, LAMONT Unavailable [address] + [place] [address] SPRANG, ASHLY Unavailable [address] + [place] [address] SPRANG, ASHLY Unavailable Unavailable + SPRANG, LAMONT Unavailable Unavailable + SPRANG, ASHLY Unavailable [address] + [place] [address] D Unavailable Unavailable Unavailable SPRANG, LAMONT Unavailable [address] + [place] [address] SPRANG, ASHLY Unavailable [address] + [place] [address] SPRANG, ASHLY Unavailable Unavailable + SPRANG, LAMONT Unavailable Unavailable + SPRANG, ASHLY Unavailable [address] + [place] [address] SPRANG, ASHLY Unavailable [address] + [place] [address] SPRANG, ASHLY Unavailable Unavailable + SPRANG, LAMONT Unavailable Unavailable + SPRANG, ASHLY Unavailable [address] + [place] [address] SPRANG, ASHLY Unavailable Unavailable + SPRANG, LAMONT Unavailable Unavailable + SPRANG, ASHLY Unavailable [address] + [place] [address] SPRANG, ASHLY Unavailable Unavailable + SPRANG, LAMONT Unavailable Unavailable + SPRANG, ASHLY Unavailable [address] + [place] [address] SPRANG, ASHLY Unavailable Unavailable + SPRANG, LAMONT Unavailable Unavailable + SPRANG, ASHLY Unavailable [address] + [place] [address] SPRANG, ASHLY Unavailable Unavailable + SPRANG, LAMONT Unavailable Unavailable + SPRANG, ASHLY Unavailable Unavailable + SPRANG, LAMONT Unavailable Unavailable + SPRANG, ASHLY Unavailable Unavailable + SPRANG, LAMONT Unavailable Unavailable + SPRANG, ASHLY Unavailable [address] + [place] [address] SPRANG, ASHLY Unavailable Unavailable + SPRANG, LAMONT Unavailable Unavailable + SPRANG, ASHLY Unavailable Unavailable + SPRANG, LAMONT Unavailable Unavailable + SPRANG, ASHLY Unavailable [address] + [place] [address] SPRANG, ASHLY Unavailable Unavailable + SPRANG, LAMONT Unavailable Unavailable + SPRANG, ASHLY Unavailable [address] + [place] [address] SPRANG, ASHLY Unavailable Unavailable + SPRANG, LAMONT Unavailable Unavailable + SPRANG, ASHLY Unavailable [address] + [place] [address] SPRANG, ASHLY Unavailable Unavailable + SPRANG, LAMONT Unavailable Unavailable + SPRANG, ASHLY Unavailable [address] + [place] [address] SPRANG, ASHLY Unavailable Unavailable + SPRANG, LAMONT Unavailable Unavailable + SPRANG, ASHLY Unavailable [address] + [place] [address] SPRANG, ASHLY Unavailable Unavailable + SPRANG, LAMONT Unavailable Unavailable + SPRANG, ASHLY Unavailable Unavailable + SPRANG, LAMONT Unavailable Unavailable + SPRANG, ASHLY Unavailable [address] + [place] [address] SPRANG, ASHLY Unavailable Unavailable + SPRANG, LAMONT Unavailable Unavailable + SPRANG, ASHLY Unavailable [address] + [place] [address] SPRANG, ASHLY Unavailable Unavailable + SPRANG, LAMONT Unavailable Unavailable + SPRANG, ASHLY Unavailable [address] + [place] [address] SPRANG, ASHLY Unavailable Unavailable + SPRANG, LAMONT Unavailable Unavailable + SPRANG, ASHLY Unavailable Unavailable + SPRANG, LAMONT Unavailable Unavailable + SPRANG, ASHLY Unavailable Unavailable + SPRANG, LAMONT Unavailable Unavailable + SPRANG, ASHLY Unavailable [address] + [place] [address] SPRANG, LAMONT Unavailable Unavailable + SPRANG, ASHLY Unavailable [address] + [place] [address] SPRANG, ASHLY Unavailable Unavailable + SPRANG, LAMONT Unavailable Unavailable + SPRANG, ASHLY Unavailable Unavailable + SPRANG, LAMONT Unavailable Unavailable + SPRANG, ASHLY Unavailable Unavailable + SPRANG, LAMONT Unavailable Unavailable + SPRANG, ASHLY Unavailable [address] + [place] [address] SPRANG, ASHLY Unavailable [address] + [place] [address] D Unavailable Unavailable Unavailable SPRANG, LAMONT Unavailable [address] + [place] [address] SPRANG, ASHLY Unavailable [address] + [place] [address] D Unavailable Unavailable Unavailable SPRANG, LAMONT Unavailable [address] + [place] [address] SPRANG, ASHLY Unavailable [address] + [place] [address] D Unavailable Unavailable Unavailable SPRANG, LAMONT Unavailable [address] + [place] [address] SPRANG, ASHLY Unavailable [address] + [place] [address] D Unavailable Unavailable Unavailable SPRANG, LAMONT Unavailable [address] + [place] [address] SPRANG, ASHLY Unavailable [address] + [place] [address] D Unavailable Unavailable Unavailable SPRANG, LAMONT Unavailable [address] + [place] [address] D Unavailable Unavailable Unavailable SPRANG, LAMONT Unavailable [address] + [place] [address] SPRANG, ASHLY Unavailable [address] + [place] [address] D Unavailable Unavailable Unavailable SPRANG, LAMONT Unavailable . + [place] [address] Care Team Providers Name Role Phone EMPERATRIZ GILLIAM II Attending Unavailable Fausto Rubi Admitting Unavailable Fausto Rubi Attending Unavailable Jeff, Dr. Carolyn Soria Admitting Unavailable Jeff, Dr. Carolyn Soria Attending Unavailable Jeff, Dr. Carolyn Soria Admitting Unavailable Jeff, Dr. Carolyn Soria Attending Unavailable Jeff, Dr. Carolyn Soria Admitting Unavailable Jeff, Dr. Carolyn Soria Attending Unavailable Jeff, Dr. Carolyn Soria Admitting Unavailable Jeff, Dr. Carolyn Soria Attending Unavailable Jeff, Dr. Carolyn Soria Admitting Unavailable Jeff, Dr. Carolyn Soria Attending Unavailable Jeff, Dr. Carolyn Soria Admitting Unavailable Jeff, Dr. Carolyn Soria Attending Unavailable Jeff, Dr. Carolyn Soria Admitting Unavailable Jeff, Dr. Carolyn Soria Attending Unavailable Sprang, Ashly Yang Admitting Unavailable Sprang, Ashly Yang Attending Unavailable Brown, Dr. Carolyn Soria Admitting Unavailable Brown, Dr. Carolyn Soria Attending Unavailable Brown, Dr. Carolyn Soria Admitting Unavailable Brown, Dr. Carolyn Soria Attending Unavailable Brown, Dr. Carolyn Soria Admitting Unavailable Brown, Dr. Carolyn Soria Attending Unavailable Rubi, Fausto Admitting Unavailable RubiFausto michaud Attending Unavailable Brown, Dr. Carolyn Soria Admitting Unavailable Brown, Dr. Carolyn Soria Attending Unavailable Brown, Dr. Carolyn Soria Admitting Unavailable Brown, Dr. Carolyn Soria Attending Unavailable Brown, Dr. Carolyn Soria Admitting Unavailable Brown, Dr. Carolyn Soria Attending Unavailable Brown, Dr. Carolyn Soria Admitting Unavailable Brown, Dr. Carolyn Soria Attending Unavailable Brown, Dr. Carolyn Soria Admitting Unavailable Brown, Dr. Carolyn Soria Attending Unavailable Damaris, Dr. Beth Bryan Admitting Unavailable Damaris, Dr. Beth Bryan Attending Unavailable Hajjiri, Dr. Ospina Admitting Unavailable Hajjiri, Dr. Ospina Attending Unavailable Hajjiri, Dr. Ospina Admitting Unavailable Hajjiri, Dr. Ospina Attending Unavailable Hajjiri, Dr. Ospina Admitting Unavailable Hajjiri, Dr. Ospina Attending Unavailable Hemal, Dr. Lou Asif Admitting Unavailable Hemal, Dr. Lou Asif Attending Unavailable Hajjiri, Dr. Ospina Admitting Unavailable Hajjiri, Dr. Ospina Attending Unavailable [place], Dr. Beth Bryan Admitting Unavailable [place], Dr. Beth Bryan Attending Unavailable Brown, Dr. Carolyn Soria Admitting Unavailable Brown, Dr. Carolyn Soria Attending Unavailable Bezilla, Renita Herrera Admitting Unavailable Bezilla, Renita Herrera Attending Unavailable BEZILLA, RENITA STEPHENSON Attending Unavailable BEZILLARENITA Referring Unavailable CAROLYN RAMACHANDRAN Primary Care Unavailable BROWN, CAROLYN HILL Attending Unavailable RAMACHANDRANCAROLYN MIN Primary Care Unavailable CAMPBELL POON Attending Unavailable CAROLYN GREY Referring Unavailable CAROLYN RAMACHANDRAN Primary Care Unavailable TONY ALDRIDGE Attending Unavailable CAROLYN RAMACHANDRAN Primary Care Unavailable JUSTINE CABRERA Attending Unavailable RENITA PORTER Referring Unavailable CAROLYN RAMACHANDRAN Primary Care Unavailable CAROLYN RAMACHANDRAN Primary Care Unavailable TONY ALDRIDGE Attending Unavailable CAROLYN RAMACHANDRAN Primary Care Unavailable TONY ALDRIDGE Attending Unavailable CAROLYN RAMACHANDRAN Primary Care Unavailable VINCENT, TONY Attending Unavailable RAMACHANDRAN, CAROLYN MARTE Primary Care Unavailable IDALMIS GARBER Attending Unavailable RAMACHANDRAN, CAROLYN MARTE Primary Care Unavailable VINCENT, TONY Attending Unavailable RAMACHANDRAN, CAROLYN MARTE Primary Care Unavailable CAMPBELL POON Attending Unavailable RAMACHANDRAN, CAROLYN MARTE Primary Care Unavailable RAMACHANDRAN, CAROLYN MARTE Primary Care Unavailable RENITA KOHLER Attending Unavailable RAMACHANDRAN, CAROLYN MARTE Primary Care Unavailable FAUSTO RUBI Attending Unavailable JANAKENT, TONY Attending Unavailable RAMACHANDRAN, CAROLYN MARTE Primary Care Unavailable VINCENT, TONY Attending Unavailable RAMACHANDRAN, CAROLYN MARTE Primary Care Unavailable VINCENT, TONY Attending Unavailable RAMACHANDRAN, CAROLYN MARTE Primary Care Unavailable VINCENT, TONY Attending Unavailable RAMACHANDRAN, CAROLYN MARTE Primary Care Unavailable VINCENT, TONY Attending Unavailable RAMACHANDRAN, CAROLYN MARTE Primary Care Unavailable VINCENT, TONY Attending Unavailable RAMACHANDRAN, CAROLYN MARTE Primary Care Unavailable CLEVECAMPBELL WILSON Attending Unavailable RAMACHANDRAN, CAROLYN MARTE Primary Care Unavailable HAFRANKLINRI, ANAI Attending Unavailable ANAI HALL Referring Unavailable RAMACHANDRAN, CAROLYN MARTE Primary Care Unavailable BETH OCAMPO Attending Unavailable RAMACHANDRAN, CAROLYN MARTE Primary Care Unavailable JUSTINE CABRERA Attending Unavailable RAMACHANDRAN, CAROLYN MARTE Primary Care Unavailable RAMACHANDRAN, CAROLYN MARTE Primary Care Unavailable FAUSTO RUBI Attending Unavailable RAMACHANDRAN, CAROLYN MARTE Primary Care Unavailable FAUSTO RUBI Attending Unavailable BETH OCAMPO Attending Unavailable BETH OCAMPO Referring Unavailable RAMACHANDRAN CAROLYN MARTE Primary Care Unavailable CAROLYN GREY Attending Unavailable RAMACHANDRAN, CARLOYN MARTE Primary Care Unavailable MASSIEL GALVAN Attending Unavailable RAMACHANDRAN, CAROLYN MARTE Primary Care Unavailable CABRERAJUSTINE Attending Unavailable RAMACHANDRAN, CAROLYN MARTE Primary Care Unavailable HAJSONIDORI, MOHELYSSAD Attending Unavailable RAMACHANDRAN, CAROLYN MARTE Primary Care Unavailable RAMACHANDRAN, CAROLYN MARTE Primary Care Unavailable RAMACHANDRAN, CAROLYN MARTE Primary Care Unavailable KATHARINE RUIZ Attending Unavailable YONI SINGH Attending Unavailable RAMACHANDRAN, CAROLYN MARTE Primary Care Unavailable RAMACHANDRAN, CAROLYN MARTE Primary Care Unavailable ANGELINA MCMULLEN Attending Unavailable RAMACHANDRAN, CAROLYN MARTE Primary Care Unavailable CABRERAJUSTINE Attending Unavailable RAMACHANDRAN, ACROLYN MARTE Primary Care Unavailable BETH OCAMPO Attending Unavailable RAMACHANDRAN, CAROLYN MARTE Primary Care Unavailable RAMACHANDRAN, CAROLYN MARTE Primary Care Unavailable RAMACHANDRAN, CAROLYN MARTE Primary Care Unavailable CLAUDIA ABRAMS Attending Unavailable DAMARIS, RACHEL Attending Unavailable RAMACHANDRAN, CAROLYN MARTE Primary Care Unavailable DAMARIS, RACHEL Attending Unavailable DAMARIS, RACHEL Referring Unavailable RAMACHANDRAN, CAROLYN MARTE Primary Care Unavailable DAMARIS, RACHEL Attending Unavailable RAMACHANDRAN, CAROLYN MARTE Primary Care Unavailable JUSTINE CABRERA Attending Unavailable RAMACHANDRAN, CAROLYN MARTE Primary Care Unavailable Ysabel Jo Attending Unavailable Romeo, Jefferson Attending Unavailable Ramachandran, Carolyn Referring Unavailable Romeo, Rui Attending Unavailable Romeo, Rui Referring Unavailable Ramachandran, Carolyn Primary Care Unavailable Katharine Arroyo Attending Unavailable Ramachandran, Carolyn Referring Unavailable Ramachandran, Carolyn Primary Care Unavailable ArroyoKatharine mon Attending Unavailable Ramachandran, Carolyn Primary Care Unavailable Romeo, Rui Attending Unavailable Romeo, Jefferson Referring Unavailable Ramachandran, Carolyn Primary Care Unavailable Romeo, Jefferson Attending Unavailable Ramachandran, Carolyn Referring Unavailable Romeo, Jefferson Attending Unavailable Romeo, Rui Referring Unavailable Ramachandran, Carolyn Primary Care Unavailable Romeo, Rui Attending Unavailable Katharine Arroyo Referring Unavailable Romeo, Jefferson Attending Unavailable Romeo, Rui Attending Unavailable Ramachandran, Carolyn Primary Care Unavailable Romeo, Rui Referring Unavailable Romeo, Rui Attending Unavailable Ramachandran, Carolyn Referring Unavailable Ramachandran, Carolyn Primary Care Unavailable Romeo, Rui Attending Unavailable Romeo, Jefferson Referring Unavailable Ramachandran, Carolyn Primary Care Unavailable Romeo, Rui Attending Unavailable Romeo, Jefferson Referring Unavailable Ramachandran, Carolyn Primary Care Unavailable Romeo, Jefferson Attending Unavailable Romeo, Rui Referring Unavailable Ramachandran, Carolyn Primary Care Unavailable ASTON NEGRETE Consulting Unavailable Romeo, Rui Attending Unavailable Romeo, Jefferson Referring Unavailable Ramachandran, Carolyn Primary Care Unavailable ASTON NEGRETE Consulting Unavailable Romeo, Jefferson Attending Unavailable Romeo, Rui Referring Unavailable Ramachandran, Carolyn Primary Care Unavailable Romeo, Jefferson Attending Unavailable Romeo, Rui Referring Unavailable Ramachandran, Carolyn Primary Care Unavailable Fermin Perry Attending Unavailable Ramachandran, Carolyn Referring Unavailable Romeo, Rui Attending Unavailable Romeo, Jefferson Referring Unavailable Carolyn Ramachandran Primary Care Unavailable PROBLEMS PROBLEMS DATE TYPE CONDITION / CODE ATTENDING STATUS SOURCE 06/17/2018 Unknown 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, 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 Repository (congestive) heart failure / I50.42(ICD-10) 06/17/2018 Unknown I48.0 - Paroxysmal Romeo, Rui Active [facility] atrial fibrillation / Community I48.0(ICD-10) Hospital Repository 06/17/2018 Unknown Z95.1 - Presence of Romeo, 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 Community graft / Z95.1(ICD-10) Hospital Repository 06/17/2018 Unknown I43 - Cardiomyopathy Romeo, Jefferson Active [facility] in diseases Community classified elsewhere Hospital / I43(ICD-10) Repository 06/17/2018 Unknown E78.00 - Pure Romeo, Rui Active [facility] hypercholesterolemia, Community unspecified / Hospital E78.00(ICD-10) Repository 06/27/2018 Unknown 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, 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 / Z95.2(ICD-10) Hospital Repository 05/30/2018 Unknown Z79.01 - halfway Romeo, Rui Active [place] (current) use of Community anticoagulants / Hospital Z79.01(ICD-10) Repository 04/26/2018 Admitting Unknown / CLAUDIA ABRAMS [facility] diagnosis UNK(Unknown) Three Repository 01/11/2018 Admitting Type 2 diabetes Community Hospital diagnosis mellitus with FAWAD Three diabetic chronic Repository kidney disease / E11.22(ICD-10) 04/13/2018 Admitting Other senior living Community Hospital diagnosis (current) drug FAWAD Three therapy / Repository Z79.899(ICD-10) 03/09/2018 Admitting Encounter for other [facility] diagnosis specified surgical KATHARINE Montaño aftercare / Repository Z48.89(ICD-10) 03/01/2018 Unknown Z01.810 - Encounter Romeo, Rui Active [place] for preprocedural [facility][1] Hospital examination / Repository Z01.810(ICD-10) 02/11/2018 Admitting Other [facility] diagnosis cardiomyopathies / [place] Three I42.8(ICD-10) Repository 01/11/2018 Admitting Type 2 diabetes MASSIEL GALVAN [facility] diagnosis mellitus with FAWAD Montaño diabetic nephropathy Repository / E11.21(ICD-10) 01/11/2018 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 [facility] diagnosis use of insulin / FAWAD Montaño Z79.4(ICD-10) Repository 11/09/2017 Admitting Pure MASSIEL GALVAN [facility] diagnosis hypercholesterolemia, FAWAD VEGAIS Three unspecified / Repository E78.00(ICD-10) 11/09/2017 Admitting Essential (primary) MASSIEL GALVAN [facility] diagnosis hypertension / FAWAD GARCÍA Three I10(ICD-10) Repository 01/07/2018 Unknown I50.9 - Heart Romeo, Rui Active [place] failure, unspecified Community / I50.9(ICD-10) Hospital Repository 01/07/2018 Unknown E78.5 - Romeo, Jefferson Active [place] Hyperlipidemia, Community unspecified / Hospital E78.5(ICD-10) Repository 01/07/2018 Unknown I25.118 - Romeo, Jefferson Active [place] 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 / I25.118(ICD-10) 01/07/2018 Unknown I48.92 - Unspecified Romeo, Jefferson Active [place] atrial flutter / Community I48.92(ICD-10) Hospital Repository 11/17/2017 Admitting Presence of BEZILLA, [facility] diagnosis aortocoronary bypass RENITA STEPHENSON Three graft / Z95.1(ICD-10) Repository 11/17/2017 Admitting Presence of BEZILLA, [facility] diagnosis prosthetic heart RENITA SACHIN Three valve / Z95.2(ICD-10) Repository 11/14/2017 Admitting Nonrheumatic aortic CLEVE, CAMPBELL [facility] diagnosis (valve) stenosis with J Three insufficiency / Repository I35.2(ICD-10) 10/21/2017 Admitting Atherosclerotic heart CAROLYN GREY [facility] diagnosis disease of [place] Three coronary artery Repository without angina pectoris / I25.10(ICD-10) 10/21/2017 Admitting Nonrheumatic aortic CAROLYN GREY [facility] diagnosis (valve) stenosis / SERGIO Three I35.0(ICD-10) Repository 10/21/2017 Admitting Dizziness and BEZILLA, Active [facility] diagnosis giddiness / RENITA SACHIN Three R42(ICD-10) Repository 10/04/2017 Unknown R06.02 - Shortness of RomeoRui nino Active [place] breath / Community R06.02(ICD-10) Hospital Repository 10/22/2017 Unknown I35.0 - Nonrheumatic Romeo, Jefferson Active [place] aortic (valve) Community stenosis / Hospital I35.0(ICD-10) Repository PROCEDURES PROCEDURES No Procedure Records FoundRESULTS RESULTS PROGRESS Observed: 07/19/2018 Status: COMPLETED Source: [place] 11:36 AM [facility] REPOSITORY HNO ID: [id number] Author: Emperatriz Gilliam II Service: (none) Author Type: PUBLIC HEALTH SANITARIAN TECHNICIAN Type: Progress Notes Filed: 07/19/2018 11:38 AM Note Text: Assessment and Plan E11.9 Type 2 diabetes mellitus without retinopathy (HCC) (primary encounter diagnosis) Comment: Examination shows no ocular diabetic complications today. Discussed need for optimal diabetes control to minimize chance of ocular complications. Advise patient to immediately report worsening in status or additional symptoms. Continue yearly dilated eye examinations. H25.813 Combined form of senile cataract of both eyes Comment: Trace cataract in both eyes. Well tolerated at this time. Monitor as instructed. H43.393 Floaters, bilateral Comment: Vitreal floaters stable both eyes. Retinas flat and intact with no apparent retinal tear or traction. Monitor yearly. H40.003 Glaucoma suspect of both eyes Comment: Glaucoma suspect both eyes due to optic nerve cupping and noted NFL anomalies. Repeat OCT NFA with threshold andrade in one year. No treatment indicated at this time. Discussed need for continued close observation to minimize chance of future vision loss. H52.223 Regular astigmatism, bilateral H52.12 Myopia, left H52.4 Presbyopia Comment: Glasses power stable. Update glasses as desired. I have confirmed and edited as necessary the relevant ophthalmic history, ROS, and the neuro exam findings as obtained by others. I have seen and examined Rigoberto Noland. I have discussed the case and the management of this patient's care with the Resident/Fellow, if applicable. I also have reviewed and agree with the assessment and plan as stated above and agree with all of its relevant components. Emperatriz H. Cooperrider, II, OD PROTHROMBIN TIME W/INR Collected: 07/11/2018 Status: F Source: [place] 10:01 AM [facility] REPOSITORY TYPE CODE TESTS RESULT OUT OF RANGE REFERENCE UNITS LAB L300.4150 11.7-14.9 SECONDS High PROTIME 21.1 LAB L300.4200 Normal INR 1.8 Performed By: #### L300.3900 #### [facility] [address] [place], [address] STRESS TEST ONLY, Observed: 07/06/2018 Status: F Source: [place] Fidus Writer 2:59 PM THREE REPOSITORY This is a summary report. The complete report is available in the patient's medical record. If you cannot access the medical record, please contact the sending organization for a detailed fax or copy. Stress test results reviewed. Agree with below findings. CARDIOLOGY VISIT Observed: 06/17/2018 Status: F Source: [place] REPORT 11:50 AM [facility] REPOSITORY [facility] [address] [place] [address] OFFICE VISIT Date of Service: 06/17/18 MR#: [id number] Acct: [id number] Name: RIGOBERTO NOLAND Rep #: [id number] : 1955 Provider: Rui Walters MD Age/Sex: 63/M [place] [facility] [place]: Signed HPI HPI Chief Complaint: Follow-up visit Details: RIGOBERTO NOLAND, is a 63 M who presents to the office today for a follow-up visit. He is a gentleman with a history of coronary artery disease status post coronary artery bypass surgery in September with a saphenous vein graft to the left anterior descending artery, saphenous vein graft to obtuse marginal branch, and saphenous vein graft to the posterior descending artery. He also has a history of non-Hodgkin's lymphoma, had chest radiation and a left internal mammary artery could not be harvested. In addition he has a history of aortic valve stenosis status post number 23 mm Neli Mcbride magna ease pericardial bioprosthetic valve done at the same time. He also has a history of ischemic cardiomyopathy and underwent preventative ICD implantation. He presented in May of this year with shortness of breath which appeared to be getting worse. He realized that he was having exertional dyspnea pedal edema had had some weight gain. He went to the emergency room he was noted to have an elevated natruretic peptide level he was given intravenous Lasix with improvement in his symptoms. He was seen by cardiology and an echocardiogram at that time demonstrated an ejection fraction of approximately 30%. He was discharged on diuretic therapy after having intravenous in-house diuretic therapy. He improved significantly and says currently he is not very short of breath. He was discharged on Lasix 20 mg twice a day. You do know that he does have stage III renal dysfunction with a creatinine around 1.4-1.5. He does not appear to have had any defibrillator discharges. His physical exam today demonstrates clear lung andrade regular rate and rhythm and no pedal edema. His blood pressure is under good control. Intake Vital Signs06/17/18 Height 5 ft 9 in Intake Visit Reasons: [facility] 06-09 Allergies meperidine [From Demerol] Adverse Reaction (Severe, Verified 06/17/18 10:25) Syncope shellfish Adverse Reaction (Severe, Uncoded 06/17/18 10:25) Diarrhea Medications amiodarone 200 mg tablet 200 mg PO QDAY #90 tab 01/07/18 [Rx Confirmed 06/17/18] aspirin 81 mg tablet,delayed release 81 mg PO ONCE 01/07/18 [History Confirmed 06/17/18] esomeprazole magnesium 40 mg capsule,delayed release 40 mg PO QDAY 01/07/18 [History Confirmed 06/17/18] warfarin 2 mg tablet 2 mg PO .COMPLEX #180 tab 02/07/18 [Rx Confirmed 06/17/18] pravastatin 10 mg tablet 10 mg PO DAILY #90 tab 03/14/18 [Rx Confirmed 06/17/18] acetaminophen 325 mg capsule 650 mg PO Q6H PRN cap 05/12/18 [History Confirmed 06/17/18] carvedilol 25 mg tablet 12.5 mg PO BID tab 05/12/18 [History Confirmed 06/17/18] docusate sodium 100 mg capsule 100 mg PO BID PRN 05/12/18 [History Confirmed 06/17/18] insulin U- 100 regular human 100 unit/mL injection solution 1 sliding scale dose SC QACHS ml 05/12/18 [History Confirmed 06/17/18] lisinopril 5 mg tablet 5 mg PO DAILY 05/12/18 [History Confirmed 06/17/18] furosemide 40 mg tablet 40 mg PO DAILY #90 tab 06/17/18 [Rx Confirmed 06/17/18] PFSH Medical History Chronic combined systolic and diastolic CHF (congestive heart failure) (Chronic) Paroxysmal atrial fibrillation (Chronic) Atherosclerosis of [place] coronary artery of [place] heart without angina pectoris (Chronic 11/10/17) Hyperlipidemia (Chronic) Cardiomyopathy in other diseases classified elsewhere (Chronic) Nonrheumatic aortic (valve) stenosis (Chronic) Type 2 diabetes mellitus (Chronic) Surgical History History of implantable cardiac defibrillator (ICD) (Chronic 03/01/18) Hx of CABG (Resolved) S/P aortic valve replacement (Chronic 11/10/17) H/O aortic valve replacement (Resolved) History of fusion of cervical spine (Resolved) Family History Father CAD (coronary artery disease) Mother Hypertension Social History Smoking Status: Never smoker alcohol intake: never substance use type: does not use diet: diabetic caffeine: No what type of physical activity do you participate in: none seatbelt use: always do you feel safe at home: Yes ROS Const Const: Negative for fatigue, weakness, difficulty sleeping, frequent falls, excessive sweating or headache(s) Eyes Eyes: Negative for loss of peripheral vision, transient loss of vision, blurry vision, tunnel vision or double vision ENT ENT: Negative for headache(s), dizziness, Nosebleed/epistaxis or balance problems Cardio Chest Pain: No Palpitations: No Edema: Bilateral (R>L) Muscle aches with walking: None Resp Respiratory: Positive for SOB with activity (admits to improvement since lasix increased); negative for SOB at rest, SOB orthopnea\SOB lying down, paroxysmal nocturnal dyspnea or Cough GI GI: Negative nausea, heartburn, black,tarry stools or vomiting : Negative for hematuria Musc Musc: Negative for balance problems, muscle aches/ myalgia, muscle weakness or joint pain Skin Skin: Negative non-healing lesions, unusual bruising or rash Neuro Neuro: Negative for weakness, frequent falls, headache(s), blurry vision, double vision, dizziness, lightheadedness, orthostatic symptoms, near syncope, syncope or lack of coordination Hawk Hematologic/Lymphatic: Negative for easy bruising or easy bleeding Endo Endo: Negative for fatigue, excessive sweating or increased thirst/drinking Psych Psych: Negative for anxiety or depression Allergy Allergy/Immunology: Negative for hives, Negative for rash Cardiology Exam Const Appearance: cooperative, healthy appearing, well developed, well groomed and no acute distress Nutritional Appearance: well nourished and average body habitus Orientation: alert, awake and oriented x3 Head Head: normal to inspection, normocephalic and atraumatic Ears: hearing grossly normal bilaterally and external ears normal Nose: external nose normal, nasal mucous membranes and turbinates normal, nares normal, septum normal, no nasal discharge Face and Sinus: face symmetric Mouth: oral mucosae normal, tongue normal, oropharynx normal and moist mucous membranes Teeth and gingiva: dentition normal Throat: posterior oropharynx normal, tonsils normal and uvula midline Eyes General: appearance normal, both eyes and all related structures Eyelids: eyelids normal Conjunctivae: conjunctivae normal Pupils: PERRL, normal by confrontation and accommodation normal EOM: EOM intact bilaterally Neck Neck: normal visual inspection, trachea midline and no JVD JVD: +5 Carotids: normal carotid upstroke and bounding pulses Chest Chest inspection: normal inspection of the chest, symmetric chest movement and normal respiratory effort Auscultation: Bilateral: Clear to Auscultation Cardio Palpation: normal PMI Rate: regular rate Rhythm: regular rhythm Heart sounds: S1 normal, S2 normal and normal, physiologic split S2; negative rub, gallop or murmur GI GI: normal to inspection, soft, no hepatosplenomegaly and bowel sounds present Neuro General: alert, awake, oriented x3, no focal sensory deficit, gait normal and moves all extremities Skin Skin: no rashes or lesions noted Extremities Pulses: Normal: Right Femoral Pulse, Left Femoral Pulse, Right Dorsalis Pedis Pulse, Left Dorsalis Pedis Pulse, Right Posterior Tibial Pulse, Left Posterior Tibial Pulse, Right Radial Pulse, Left Radial Pulse Lower Extremity Edema: None: Bilateral Musculoskel Musculoskeletal: No joint tenderness Psych Psychological: normal affect Assessment AND Plan 1. Chronic combined systolic and diastolic CHF (congestive heart failure) I50.42 Plan He does have a history of recently diagnosed congestive heart failure this appears to be a combination of systolic and diastolic. The plan will be for him to remain on his current dosage of Lasix but for him to take it 40 mg in the morning. In addition he would also take his beta-mary and OZ inhibitor. We will continue to monitor him with serial echocardiograms as appropriate salt restriction has also been emphasized. 2. History of implantable cardiac defibrillator (ICD) serial number [id number] and model number [id number]; serial number [id number] and model number [id number]; Plan He does have a history of an implantable defibrillator which will be managed here through our defibrillator clinic. No major changes will be made. 3. Paroxysmal atrial fibrillation I48.0 Plan He does have a history of paroxysmal atrial fibrillation he remains on anticoagulation for this in addition to the beta-mary. With his recent episode I may want to keep him on the anticoagulation for a few more months. If he remains stable through his defibrillator checks we may be able to discontinue it. 4. Hx of CABG Z95.1 CABG x 3 SVG to LAD, SVG to obtuse marginal, and SVG to posterior descending artery; 09/2017 Plan He has a history of coronary artery bypass surgery. It does not appear that there is a thought that this may have been due to early graft occlusion or failure. We will continue to monitor him and if there is any indication we may need to perform stress testing. 5. S/P aortic valve replacement Z95.2 S/P 23 mm Neli-Mcbride Manga Ease pericardial bioprosthesis in September 2017; Plan He does have a history of aortic valve replacement with a 23 mm valve his recent echocardiogram appeared to demonstrate stability of the above. 6. Cardiomyopathy in other diseases classified elsewhere I43 Plan He has a history of a cardiomyopathy with a reduced ejection fraction of approximately 30%. He is ACC stage C. He appears to be on appropriate medications with the beta-mary and the OZ inhibitor as well as the diuretic. At his next visit we may consider whether he will be a candidate for Entresto. 7. Pure hypercholesterolemia E78.00 Plan He has a history of hyperlipidemia and will continue to work with aggressive risk factor modification. Thank you for allowing me to participate in the care of your patient. Please don't hesitate to call if any issues arise Plan Detail Other Medications New: Discontinued: Follow Up 4 Months (jhr) Coding Level of Care Code Off vis,est,level 5 Diagnoses Chronic combined systolic and diastolic CHF (congestive heart failure) I50.42 History of implantable cardiac defibrillator (ICD) Paroxysmal atrial fibrillation I48.0 Hx of CABG Z95.1 S/P aortic valve replacement Z95.2 Cardiomyopathy in other diseases classified elsewhere I43 Pure hypercholesterolemia E78.00 Hyperlipidemia type: pure hypercholesterolemia Coding Level of Care Code Off vis,est,level 5 Diagnoses Chronic combined systolic and diastolic CHF (congestive heart failure) I50.42 History of implantable cardiac defibrillator (ICD) Paroxysmal atrial fibrillation I48.0 Hx of CABG Z95.1 S/P aortic valve replacement Z95.2 Cardiomyopathy in other diseases classified elsewhere I43 Pure hypercholesterolemia E78.00 Hyperlipidemia type: pure hypercholesterolemia 06/17/18 1150 <Electronically signed by Rui Walters MD> Date Rui Walters MD Cosigner Signature: Date (if applicable) CC: Carolyn Ramachandran MD PROTHROMBIN TIME W/INR Collected: 06/13/2018 Status: F Source: [place] 10:12 AM [facility] REPOSITORY TYPE CODE TESTS RESULT OUT OF RANGE REFERENCE UNITS LAB L300.4150 11.7-14.9 SECONDS High PROTIME 25.0 LAB L300.4200 Normal INR 2.3 Performed By: #### L300.3900 #### [facility] [address] [place] [address]. [place], [place], [id number] GLUCOSE, POC Collected: 06/09/2018 Status: F Source: [facility] 11:35 AM [facility] REPOSITORY TYPE CODE TESTS RESULT OUT OF RANGE REFERENCE UNITS LAB GLUX 80-115 mg/dL High Glucose, 147 POC Performed By: #### GLUX #### Unless otherwise noted, all testing performed by [address] [place] [address] CLIA: [id number] Staff Sonographer: Brandon Reina M.D. GLUCOSE, POC Collected: 06/09/2018 Status: F Source: [facility] 7:46 AM [facility] REPOSITORY TYPE CODE TESTS RESULT OUT OF RANGE REFERENCE UNITS LAB GLUX 80-115 mg/dL High Glucose, 163 POC Performed By: #### GLUX #### Unless otherwise noted, all testing performed by [place] [address] CLIA: [id number] Staff Sonographer: Brandon Reina M.D. GLUCOSE, POC Collected: 06/09/2018 Status: F Source: [facility] 5:23 AM [facility] REPOSITORY TYPE CODE TESTS RESULT OUT OF RANGE REFERENCE UNITS LAB GLUX 80-115 mg/dL High Glucose, 138 POC Performed By: #### GLUX #### Unless otherwise noted, all testing performed by [place] [address] CLIA: [id number] Staff Sonographer: Brandon Reina M.D. CBC WITH DIFF Collected: 06/09/2018 Status: F Source: [facility] 3:37 AM [facility] REPOSITORY TYPE CODE TESTS RESULT OUT OF RANGE REFERENCE UNITS LAB WBC 3.6-10.4 K/mcL WBC Normal 6.4 LAB RBC 4.0-5.5 M/mcL RBC Normal 5.41 LAB HGB 12.9-16.9 g/dL Normal Hemoglobin 13.8 LAB HCT 37.9-49.2 % Normal Hematocrit 43.3 LAB MCV 82.8-99.3 FL Low MCV 80.1 LAB MCH 27.7-34.6 pg Low MCH 25.5 LAB MCHC 32.9-35.5 g/dL Low MCHC 31.8 LAB RDW 10-14.3 % High RDW 18.0 LAB PLT 139-354 K/mcL Platelet Normal Count 173 LAB MPV 6.6-10.8 FL MPV Normal 7.6 LAB NEUT# 1.4-6.8 K/mcL Normal Neutrophil # 5.0 LAB LYMPH# 0.9-3.6 K/mcL Low Lymphocyte # 0.6 LAB MONO# 0.2-0.6 K/mcL Monocyte Normal # 0.6 LAB EOS# 0-0.5 K/mcL Normal Eosinophil # 0.2 LAB BASO# 0-0.2 K/mcL Basophil Normal # 0.0 LAB SEGNEU% % Normal Segmented Neut % 78.0 LAB LYMP% % Normal Lymphocyte% 9.1 LAB MO% % Monocyte Normal % 9.1 LAB EO% % Normal Eosinophil % 3.4 LAB BA% % Basophil Normal % 0.4 Performed By: #### CHEMG, CBCDIF #### Unless otherwise noted, all testing performed by [facility] [address] [place], [place] [address] CLIA: [id number] Staff Sonographer: Lilia Gil (BASIC METABOLIC Collected: 06/09/2018 Status: F Source: [facility] AND ) 3:37 AM [facility] REPOSITORY TYPE CODE TESTS RESULT OUT OF REFERENCE UNITS RANGE LAB GLU 70-99 mg/dL Low Alert Glucose 62 Result Comment: CQC150 CALLED ATTENTION RESULT ON 06/09/2018 @ 0428 TO AND READ BACK BY ABDIAZIZ LÓPEZ in A40B This test result might be falsely depressed or falsely elevated on samples drawn from patients taking Sulfasalazine and Sulfapyridine. Venipuncture should occur prior to taking either of these drugs. LAB BUN 8-25 mg/dL BUN High 29 LAB CREA 0.80-1.30 mg/dL Creatinine High 1.46 LAB eGFR >60 ml/min/1.73s Low q.m eGFR,NonAfrican-Am erican 49 Result Comment: Non- GFR Calc eGFR is an estimated Glomerular Filtration Rate based on the value of the patient's serum creatinine. In outpatients, eGFR should be used as a helpful tool in screening for CKD. In inpatients or patients with acute renal failure, eGFR represents the GFR at the moment of the draw and should be used with caution. LAB eGFRB >60 ml/min/1.73sq.m eGFR, -Canadian Low 59 Result Comment: GFR Calc LAB CALCM 8.4-10.2 mg/dL Calcium 8.8 LAB NA 135-145 mmol/L Sodium 142 LAB K 3.5-5.1 mmol/L Potassium 3.5 LAB CL 98-108 mmol/L Chloride 104 LAB CO2 21-32 mmol/L CO2 32 LAB MG 1.6-2.4 mg/dL Magnesium 1.9 Performed By: #### CHEMG, CBCDIF #### Unless otherwise noted, all testing performed by [place] [address] CLIA: [id number] Staff Sonographer: Brandon Reina M.D. PROTIME Collected: 06/09/2018 Status: F Source: [facility] 3:37 AM [facility] REPOSITORY TYPE CODE TESTS RESULT OUT OF REFERENCE UNITS RANGE LAB PT. 11.8-14.3 Seconds High Protime 27.9 LAB INR INR 2.71 Result Comment: The [employer] recommended therapeutic range for Warfarin (Coumadin) therapy goals: PROPHYLAXIS/TREATMENT of: INR Venous Thrombosis, Pulmonary Embolism 2.0-3.0 Prevention of VTE (Orthopedic Surgery) 2.0-3.0 Atrial Fibrillation 2.0-3.0 Myocardial Infarction 2.0-3.0 Mechanical Prosthetic Heart Valves (Aortic position) 2.0-3.0 Mechanical Prosthetic Heart Valves (Mitral Position) 2.5-3.5 [employer] evidence-based clinical practice guidelines. CHEST. 2012 (9th ed) Performed By: #### PT #### Unless otherwise noted, all testing performed by [place] [id number] CLIA: [id number] Staff Sonographer: Brandon Reina M.D. GLUCOSE, POC Collected: 06/09/2018 Status: F Source: [facility] 1:34 AM [facility] REPOSITORY TYPE CODE TESTS RESULT OUT OF RANGE REFERENCE UNITS LAB GLUX 80-115 mg/dL Normal Glucose, 97 POC Performed By: #### GLUX #### Unless otherwise noted, all testing performed by [place] [address] CLIA: [id number] Staff Sonographer: Brandon Reina M.D. GLUCOSE, POC Collected: 06/08/2018 Status: F Source: [facility] 10:33 PM [facility] REPOSITORY TYPE CODE TESTS RESULT OUT OF RANGE REFERENCE UNITS LAB GLUX 80-115 mg/dL Normal Glucose, 91 POC Performed By: #### GLUX #### Unless otherwise noted, all testing performed by [place] [address] CLIA: [id number] Staff Sonographer: Brandon Reina M.D. GLUCOSE, POC Collected: 06/08/2018 Status: F Source: [facility] 8:47 PM [facility] REPOSITORY TYPE CODE TESTS RESULT OUT OF RANGE REFERENCE UNITS LAB GLUX 80-115 mg/dL High Glucose, 122 POC Performed By: #### GLUX #### Unless otherwise noted, all testing performed by [place] [id number] CLIA: [id number] Staff Sonographer: Brandon Reina M.D. GLUCOSE, POC Collected: 06/08/2018 Status: F Source: [facility] 5:04 PM [facility] REPOSITORY TYPE CODE TESTS RESULT OUT OF RANGE REFERENCE UNITS LAB GLUX 80-115 mg/dL High Glucose, 227 POC Performed By: #### GLUX #### Unless otherwise noted, all testing performed by [address] [address] CLIA: [id number] Staff Sonographer: Brandon Reina M.D. GLUCOSE, POC Collected: 06/08/2018 Status: F Source: [facility] 11:52 AM [facility] REPOSITORY TYPE CODE TESTS RESULT OUT OF RANGE REFERENCE UNITS LAB GLUX 80-115 mg/dL High Glucose, 155 POC Performed By: #### GLUX #### Unless otherwise noted, all testing performed by [place] [address] CLIA: [id number] Staff Sonographer: Brandon Reina M.D. GLUCOSE, POC Collected: 06/08/2018 Status: F Source: [facility] 7:48 AM [facility] REPOSITORY TYPE CODE TESTS RESULT OUT OF RANGE REFERENCE UNITS LAB GLUX 80-115 mg/dL Low Glucose, 73 POC Performed By: #### GLUX #### Unless otherwise noted, all testing performed by [facility] [place] [address] CLIA: [id number] Staff Sonographer: Brandon Reina M.D. CBC WITH DIFF Collected: 06/08/2018 Status: F Source: [facility] 3:22 AM [facility] REPOSITORY TYPE CODE TESTS RESULT OUT OF RANGE REFERENCE UNITS LAB WBC 3.6-10.4 K/mcL WBC Normal 7.2 LAB RBC 4.0-5.5 M/mcL High RBC 5.66 LAB HGB 12.9-16.9 g/dL Normal Hemoglobin 14.3 LAB HCT 37.9-49.2 % Normal Hematocrit 45.5 LAB MCV 82.8-99.3 FL Low MCV 80.4 LAB MCH 27.7-34.6 pg Low MCH 25.3 LAB MCHC 32.9-35.5 g/dL Low MCHC 31.5 LAB RDW 10-14.3 % High RDW 18.0 LAB PLT 139-354 K/mcL Platelet Normal Count 177 LAB MPV 6.6-10.8 FL MPV Normal 7.6 LAB NEUT# 1.4-6.8 K/mcL Normal Neutrophil # 5.8 LAB LYMPH# 0.9-3.6 K/mcL Low Lymphocyte # 0.6 LAB MONO# 0.2-0.6 K/mcL Monocyte Normal # 0.6 LAB EOS# 0-0.5 K/mcL Normal Eosinophil # 0.2 LAB BASO# 0-0.2 K/mcL Basophil Normal # 0.0 LAB SEGNEU% % Normal Segmented Neut % 80.5 LAB LYMP% % Normal Lymphocyte% 8.5 LAB MO% % Monocyte Normal % 8.5 LAB EO% % Normal Eosinophil % 2.1 LAB BA% % Basophil Normal % 0.4 Performed By: #### CHEM8, CBCDIF #### Unless otherwise noted, all testing performed by [place] [address] CLIA: [id number] Staff Sonographer: Brandon Reina M.D. BASIC METABOLIC PANEL Collected: 06/08/2018 Status: F Source: [facility] 3:22 AM [facility] REPOSITORY TYPE CODE TESTS RESULT OUT OF RANGE REFERENCE UNITS LAB GLU 70-99 mg/dL Normal Glucose 96 Result Comment: This test result might be falsely depressed or falsely elevated on samples drawn from patients taking Sulfasalazine and Sulfapyridine. Venipuncture should occur prior to taking either of these drugs. LAB BUN 8-25 mg/dL Normal BUN 23 LAB CREA 0.80-1.30 mg/dL High Creatinine 1.48 LAB eGFR >60 ml/min/1.73s Low q.m eGFR,NonAfrican-A merican 48 Result Comment: Non- GFR Calc eGFR is an estimated Glomerular Filtration Rate based on the value of the patient's serum creatinine. In outpatients, eGFR should be used as a helpful tool in screening for CKD. In inpatients or patients with acute renal failure, eGFR represents the GFR at the moment of the draw and should be used with caution. LAB eGFRB >60 ml/min/1.73sq.m eGFR, -Canadian Low 58 Result Comment: GFR Calc LAB CALCM 8.4-10.2 mg/dL Calcium Normal 8.6 LAB NA 135-145 mmol/L Sodium Normal 143 LAB K 3.5-5.1 mmol/L Low Potassium 3.4 LAB CL 98-108 mmol/L Chloride Normal 103 LAB CO2 21-32 mmol/L CO2 Normal 32 Performed By: #### CHEM8, CBCDIF #### Unless otherwise noted, all testing performed by [place] [address] CLIA: [id number] Staff Sonographer: Brandon Reina M.D. PROTIME Collected: 06/08/2018 Status: F Source: [facility] 3:22 AM [facility] REPOSITORY TYPE CODE TESTS RESULT OUT OF REFERENCE UNITS RANGE LAB PT. 11.8-14.3 Seconds High Protime 26.7 LAB INR INR 2.56 Result Comment: The [employer] recommended therapeutic range for Warfarin (Coumadin) therapy goals: PROPHYLAXIS/TREATMENT of: INR Venous Thrombosis, Pulmonary Embolism 2.0-3.0 Prevention of VTE (Orthopedic Surgery) 2.0-3.0 Atrial Fibrillation 2.0-3.0 Myocardial Infarction 2.0-3.0 Mechanical Prosthetic Heart Valves (Aortic position) 2.0-3.0 Mechanical Prosthetic Heart Valves (Mitral Position) 2.5-3.5 [employer] evidence-based clinical practice guidelines. CHEST. 2012 (9th ed) Performed By: #### PT #### Unless otherwise noted, all testing performed by [place] [address] CLIA: [id number] Staff Sonographer: Brandon Reina M.D. GLUCOSE, POC Collected: 06/07/2018 Status: F Source: [facility] 11:57 PM [facility] REPOSITORY TYPE CODE TESTS RESULT OUT OF RANGE REFERENCE UNITS LAB GLUX 80-115 mg/dL High Glucose, 173 POC Performed By: #### GLUX #### Unless otherwise noted, all testing performed by [place] [address] CLIA: [id number] Staff Sonographer: Brandon Reina M.D. GLUCOSE, POC Collected: 06/07/2018 Status: F Source: [facility] 9:21 PM [facility] REPOSITORY TYPE CODE TESTS RESULT OUT OF RANGE REFERENCE UNITS LAB GLUX 80-115 mg/dL High Glucose, 141 POC Performed By: #### GLUX #### Unless otherwise noted, all testing performed by [place] [address] CLIA: [id number] Staff Sonographer: Brandon Reina M.D. CHEST (ONE VIEW Observed: 06/07/2018 Status: F Source: [facility] ONLY) 5:08 PM [facility] REPOSITORY Final Report Accession No: [id number] Performed: Jun 07 2018 5:08PM Examination: CHEST (ONE VIEW ONLY) EXAM: CHEST (ONE VIEW ONLY) CLINICAL HISTORY: 63 years old Male presenting with shortness of breath. TECHNIQUE: 1 view chest x-ray. COMPARISON: 03/02/2018. FINDINGS: No pneumothorax. No significant pleural effusions. Slightly increased right basilar airspace opacity. Chronic elevation of the right hemidiaphragm. Stable cardiomegaly. Postoperative changes of median sternotomy and CABG. Left subclavian AICD is in place. There is partial mineralization of cervical spine hardware. IMPRESSION: 1. Increased subsegmental right basilar airspace opacity suggestive of atelectasis or infiltrate. 2. Cardiomegaly without overt interstitial edema. Interpreting Physician: RACHEL LYNCH D.O. Trans: [id number] : cc: CBC WITH DIFF Collected: 06/07/2018 Status: F Source: [facility] 4:42 PM [facility] REPOSITORY TYPE CODE TESTS RESULT OUT OF RANGE REFERENCE UNITS LAB WBC 3.6-10.4 K/mcL WBC Normal 8.6 LAB RBC 4.0-5.5 M/mcL High RBC 5.82 LAB HGB 12.9-16.9 g/dL Normal Hemoglobin 15.1 LAB HCT 37.9-49.2 % Normal Hematocrit 47.5 LAB MCV 82.8-99.3 FL Low MCV 81.6 LAB MCH 27.7-34.6 pg Low MCH 26.0 LAB MCHC 32.9-35.5 g/dL Low MCHC 31.8 LAB RDW 10-14.3 % High RDW 18.5 LAB PLT 139-354 K/mcL Platelet Normal Count 209 LAB MPV 6.6-10.8 FL MPV Normal 7.9 LAB NEUT# 1.4-6.8 K/mcL High Neutrophil # 7.2 LAB LYMPH# 0.9-3.6 K/mcL Low Lymphocyte # 0.6 LAB MONO# 0.2-0.6 K/mcL Monocyte Normal # 0.6 LAB EOS# 0-0.5 K/mcL Normal Eosinophil # 0.2 LAB BASO# 0-0.2 K/mcL Basophil Normal # 0.1 LAB SEGNEU% % Normal Segmented Neut % 84.2 LAB LYMP% % Normal Lymphocyte% 6.9 LAB MO% % Monocyte Normal % 6.5 LAB EO% % Normal Eosinophil % 1.8 LAB BA% % Basophil Normal % 0.6 Performed By: #### NTPROBNP, CBCDIF, PT, EDCTNI, CHEM8, PTT #### Unless otherwise noted, all testing performed by [place] [address] CLIA: [id number] Staff Sonographer: Brandon Reina M.D. PROTIME Collected: 06/07/2018 Status: F Source: [facility] 4:42 PM [facility] REPOSITORY TYPE CODE TESTS RESULT OUT OF REFERENCE UNITS RANGE LAB PT. 11.8-14.3 Seconds High Protime 27.9 LAB INR INR 2.71 Result Comment: The [employer] recommended therapeutic range for Warfarin (Coumadin) therapy goals: PROPHYLAXIS/TREATMENT of: INR Venous Thrombosis, Pulmonary Embolism 2.0-3.0 Prevention of VTE (Orthopedic Surgery) 2.0-3.0 Atrial Fibrillation 2.0-3.0 Myocardial Infarction 2.0-3.0 Mechanical Prosthetic Heart Valves (Aortic position) 2.0-3.0 Mechanical Prosthetic Heart Valves (Mitral Position) 2.5-3.5 [employer] evidence-based clinical practice guidelines. CHEST. 2012 (9th ed) Performed By: #### NTPROBNP, CBCDIF, PT, EDCTNI, CHEM8, PTT #### Unless otherwise noted, all testing performed by [place] [address] CLIA: [id number] Staff Sonographer: Brandon Reina M.D. PARTIAL THROMBOPLASTIN Collected: 06/07/2018 Status: F Source: [facility] TIME 4:42 PM [facility] REPOSITORY TYPE CODE TESTS RESULT OUT OF REFERENCE UNITS RANGE LAB PTT 23.0-34.0 Seconds Partial High Thromboplastin Time 37 Result Comment: Suggested therapeutic range for PTT is 68-104 sec. Performed By: #### NTPROBNP, CBCDIF, PT, EDCTNI, CHEM8, PTT #### Unless otherwise noted, all testing performed by [address] [address] CLIA: [id number] Staff Sonographer: Brandon Reina M.D. ED CARDIAC TROPONIN-I Collected: 06/07/2018 Status: F Source: [facility] 4:42 PM [facility] REPOSITORY TYPE CODE TESTS RESULT OUT OF RANGE REFERENCE UNITS LAB EDCTNI < 45 ng/L Normal ED Cardiac 37 Troponin-I Result Comment: Elevation of troponin indicates some degree of myocardial necrosis but unless there is a significant rise and/or fall (if elevated) identified, it unlikely that an acute event has taken place Samples from patients routinely receiving high dose biotin therapy (100-300 mg/day) may show falsely decreased results. Please correlate clinically. Performed By: #### NTPROBNP, CBCDIF, PT, EDCTNI, CHEM8, PTT #### Unless otherwise noted, all testing performed by [place] [address] CLIA: [id number] Staff Sonographer: Brandon Reina M.D. BASIC METABOLIC PANEL Collected: 06/07/2018 Status: F Source: [facility] 4:42 PM [facility] TYPE CODE TESTS RESULT OUT OF RANGE REFERENCE UNITS LAB GLU 70-99 mg/dL Normal Glucose 82 Result Comment: This test result might be falsely depressed or falsely elevated on samples drawn from patients taking Sulfasalazine and Sulfapyridine. Venipuncture should occur prior to taking either of these drugs. LAB BUN 8-25 mg/dL Normal BUN 23 LAB CREA 0.80-1.30 mg/dL Normal Creatinine 1.28 LAB eGFR >60 ml/min/1.73s Low q.m eGFR,NonAfrican-A merican 57 Result Comment: Non- GFR Calc eGFR is an estimated Glomerular Filtration Rate based on the value of the patient's serum creatinine. In outpatients, eGFR should be used as a helpful tool in screening for CKD. In inpatients or patients with acute renal failure, eGFR represents the GFR at the moment of the draw and should be used with caution. LAB eGFRB ml/min/1.73sq.m eGFR, Normal -Canadian >=60 Result Comment: GFR Calc LAB CALCM 8.4-10.2 mg/dL Calcium Normal 9.2 LAB NA 135-145 mmol/L Sodium Normal 142 LAB K 3.5-5.1 mmol/L Normal Potassium 3.8 LAB CL 98-108 mmol/L Chloride Normal 103 LAB CO2 21-32 mmol/L CO2 Normal 31 Performed By: #### NTPROBNP, CBCDIF, PT, EDCTNI, CHEM8, PTT #### Unless otherwise noted, all testing performed by [place] [address] CLIA: [id number] Staff Sonographer: Brandon Reina M.D. NT-PRO BNP, SERUM Collected: 06/07/2018 Status: F Source: [facility] 4:42 PM [facility] REPOSITORY TYPE CODE TESTS RESULT OUT OF REFERENCE UNITS RANGE LAB NTPROBNP 0-125 pg/mL High 4242 NT-Pro BNP, Serum Performed By: #### NTPROBNP, CBCDIF, PT, EDCTNI, CHEM8, PTT #### Unless otherwise noted, all testing performed by [place] [address] CLIA: [id number] Staff Sonographer: Brandon Reina M.D. PROTHROMBIN TIME W/INR Collected: 05/16/2018 Status: F Source: [place] 9:43 AM [facility] REPOSITORY TYPE CODE TESTS RESULT OUT OF RANGE REFERENCE UNITS LAB L300.4150 11.7-14.9 SECONDS High PROTIME 27.9 LAB L300.4200 Normal INR 2.6 Performed By: #### L300.3900 #### [facility] [address] [place] [address]. [place], [place], [address] PROTHROMBIN TIME W/INR Collected: 04/18/2018 Status: F Source: [place] 9:23 AM [facility] REPOSITORY TYPE CODE TESTS RESULT OUT OF RANGE REFERENCE UNITS LAB L300.4150 11.7-14.9 SECONDS High PROTIME 26.0 LAB L300.4200 Normal INR 2.4 Performed By: #### L300.3900 #### [facility] [address] [place], [address] PROTHROMBIN TIME W/INR Collected: 03/28/2018 Status: F Source: [place] 9:36 AM [facility] REPOSITORY TYPE CODE TESTS RESULT OUT OF RANGE REFERENCE UNITS LAB L300.4150 11.7-14.9 SECONDS High PROTIME 27.9 LAB L300.4200 Normal INR 2.6 Performed By: #### L300.3900 #### [facility] [address] [place], [address] PROTHROMBIN TIME W/INR Collected: 03/14/2018 Status: F Source: [place] 9:07 AM [facility] REPOSITORY TYPE CODE TESTS RESULT OUT OF RANGE REFERENCE UNITS LAB L300.4150 11.7-14.9 SECONDS High PROTIME 33.9 LAB L300.4200 Normal INR 3.3 Performed By: #### L300.3900 #### [facility] [address] [place], [address] GLUCOSE, POC Collected: 03/02/2018 Status: F Source: [facility] 7:52 AM [facility] REPOSITORY TYPE CODE TESTS RESULT OUT OF RANGE REFERENCE UNITS LAB GLUX 80-115 mg/dL Normal Glucose, 107 POC Performed By: #### GLUX #### Unless otherwise noted, all testing performed by [address] [place], [place] [address] CLIA: [id number] Staff Sonographer: Brandon Reina M.D. CHEST (ONE VIEW Observed: 03/02/2018 Status: F Source: [facility] ONLY) 7:46 AM [facility] REPOSITORY Final Report Accession No: [id number] Performed: Mar 02 2018 7:46AM Examination: CHEST (ONE VIEW ONLY) EXAM: CHEST (ONE VIEW ONLY) REASON FOR EXAM: Pacemaker. TECHNIQUE: Single portable view the chest. COMPARISON: [facility], most recent yesterday. FINDINGS: Stable left anterior chest wall pacemaker/AICD. Lungs are clear. Heart size is stable. Stable post surgical changes from coronary artery bypass grafting surgery. No pleural effusion or pneumothorax. Osseous structures are without acute abnormality IMPRESSION: No active disease in the chest. Interpreting Physician: FAUSTO SALEEM M.D. Trans: n/a : cc: GLUCOSE, POC Collected: 03/02/2018 Status: F Source: [facility] 5:10 AM [facility] REPOSITORY TYPE CODE TESTS RESULT OUT OF RANGE REFERENCE UNITS LAB GLUX 80-115 mg/dL High Glucose, 117 POC Performed By: #### GLUX #### Unless otherwise noted, all testing performed by [place] [address] CLIA: [id number] Staff Sonographer: Brandon Reina M.D. GLUCOSE, POC Collected: 03/02/2018 Status: F Source: [facility] 12:51 AM [facility] REPOSITORY TYPE CODE TESTS RESULT OUT OF RANGE REFERENCE UNITS LAB GLUX 80-115 mg/dL Normal Glucose, 100 POC Performed By: #### GLUX #### Unless otherwise noted, all testing performed by [place] [address] CLIA: [id number] Staff Sonographer: Brandon Reina M.D. GLUCOSE, POC Collected: 03/02/2018 Status: F Source: [facility] 12:13 AM [facility] REPOSITORY TYPE CODE TESTS RESULT OUT OF RANGE REFERENCE UNITS LAB GLUX 80-115 mg/dL Low Glucose, 62 POC Performed By: #### GLUX #### Unless otherwise noted, all testing performed by [place] [address] CLIA: [id number] Staff Sonographer: Brandon Reina M.D. GLUCOSE, POC Collected: 03/01/2018 Status: F Source: [facility] 8:42 PM [facility] REPOSITORY TYPE CODE TESTS RESULT OUT OF RANGE REFERENCE UNITS LAB GLUX 80-115 mg/dL High Glucose, 145 POC Performed By: #### GLUX #### Unless otherwise noted, all testing performed by [facility] [address] [place], [place] [address] CLIA: [id number] Staff Sonographer: Brandon Reina M.D. GLUCOSE, POC Collected: 03/01/2018 Status: F Source: [facility] 2:12 PM [facility] REPOSITORY TYPE CODE TESTS RESULT OUT OF RANGE REFERENCE UNITS LAB GLUX 80-115 mg/dL High Glucose, 181 POC Performed By: #### GLUX #### Unless otherwise noted, all testing performed by [facility] [address] [place], [place] [address] CLIA: [id number] Staff Sonographer: Brandon Reina M.D. CHEST (ONE VIEW Observed: 03/01/2018 Status: F Source: [facility] ONLY) 12:21 PM [facility] REPOSITORY Final Report Accession No: [id number] Performed: Mar 01 2018 12:21PM Examination: CHEST (ONE VIEW ONLY) EXAM: CHEST (ONE VIEW ONLY) REASON FOR EXAM: Pacemaker. TECHNIQUE: Two-view chest. COMPARISON: Chest x-ray dated December 22, 2017. FINDINGS: There is no evidence of lung consolidation, pleural effusions or pneumothorax. Heart size is normal. A left-sided pacemaker/AICD is in place. The mediastinum is within normal limits. Osseous structures are intact. IMPRESSION: Interval placement of a left pacemaker/AICD. No evidence of pneumothorax. Interpreting Physician: JAIME NG D.O. Trans: n/a : cc: PROTIME Collected: 03/01/2018 Status: F Source: [facility] 8:59 AM [facility] REPOSITORY TYPE CODE TESTS RESULT OUT OF REFERENCE UNITS RANGE LAB PT. 11.8-14.3 Seconds High Protime 26.4 LAB INR INR 2.47 Result Comment: The [employer] recommended therapeutic range for Warfarin (Coumadin) therapy goals: PROPHYLAXIS/TREATMENT of: INR Venous Thrombosis, Pulmonary Embolism 2.0-3.0 Prevention of VTE (Orthopedic Surgery) 2.0-3.0 Atrial Fibrillation 2.0-3.0 Myocardial Infarction 2.0-3.0 Mechanical Prosthetic Heart Valves (Aortic position) 2.0-3.0 Mechanical Prosthetic Heart Valves (Mitral Position) 2.5-3.5 [employer] evidence-based clinical practice guidelines. CHEST. 2012 (9th ed) Performed By: #### PT #### Unless otherwise noted, all testing performed by [address] [address] CLIA: [id number] Staff Sonographer: Brandon eRina M.D. CBC WITH DIFF Collected: 03/01/2018 Status: F Source: [facility] 8:40 AM [facility] REPOSITORY TYPE CODE TESTS RESULT OUT OF RANGE REFERENCE UNITS LAB WBC 3.6-10.4 K/mcL WBC Normal 6.8 LAB RBC 4.0-5.5 M/mcL High RBC 5.55 LAB HGB 12.9-16.9 g/dL Normal Hemoglobin 13.6 LAB HCT 37.9-49.2 % Normal Hematocrit 43.0 LAB MCV 82.8-99.3 FL Low MCV 77.5 LAB MCH 27.7-34.6 pg Low MCH 24.4 LAB MCHC 32.9-35.5 g/dL Low MCHC 31.5 LAB RDW 10-14.3 % High RDW 19.3 LAB PLT 139-354 K/mcL Platelet Normal Count 213 LAB MPV 6.6-10.8 FL MPV Normal 8.0 LAB NEUT# 1.4-6.8 K/mcL Normal Neutrophil # 5.4 LAB LYMPH# 0.9-3.6 K/mcL Low Lymphocyte # 0.6 LAB MONO# 0.2-0.6 K/mcL Monocyte Normal # 0.4 LAB EOS# 0-0.5 K/mcL Normal Eosinophil # 0.3 LAB BASO# 0-0.2 K/mcL Basophil Normal # 0.0 LAB SEGNEU% % Normal Segmented Neut % 80.1 LAB LYMP% % Normal Lymphocyte% 9.2 LAB MO% % Monocyte Normal % 6.6 LAB EO% % Normal Eosinophil % 3.9 LAB BA% % Basophil Normal % 0.2 Performed By: #### CHEM8, CBCDIF #### Unless otherwise noted, all testing performed by [address], [place] [address] CLIA: [id number] Staff Sonographer: Brandon Reina M.D. BASIC METABOLIC PANEL Collected: 03/01/2018 Status: F Source: [facility] 8:40 AM [facility] REPOSITORY TYPE CODE TESTS RESULT OUT OF REFERENCE UNITS RANGE LAB GLU 70-99 mg/dL High Glucose 220 Result Comment: This test result might be falsely depressed or falsely elevated on samples drawn from patients taking Sulfasalazine and Sulfapyridine. Venipuncture should occur prior to taking either of these drugs. LAB BUN 8-25 mg/dL BUN 21 LAB CREA 0.80-1.30 mg/dL Creatinine 1.29 LAB eGFR >60 ml/min/1.73s Low q.m eGFR,NonAfrican-Am erican 56 Result Comment: Non- GFR Calc eGFR is an estimated Glomerular Filtration Rate based on the value of the patient's serum creatinine. In outpatients, eGFR should be used as a helpful tool in screening for CKD. In inpatients or patients with acute renal failure, eGFR represents the GFR at the moment of the draw and should be used with caution. LAB eGFRB ml/min/1.73sq.m eGFR, -Canadian >=60 Result Comment: GFR Calc LAB CALCM 8.4-10.2 mg/dL Calcium 8.6 LAB NA 135-145 mmol/L Sodium 139 LAB K 3.5-5.1 mmol/L Potassium 4.0 LAB CL 98-108 mmol/L Chloride 103 LAB CO2 21-32 mmol/L CO2 27 Performed By: #### CHEM8, CBCDIF #### Unless otherwise noted, all testing performed by [address] [address] CLIA: [id number] Staff Sonographer: Brandon Reina M.D. GLUCOSE, POC Collected: 03/01/2018 Status: F Source: [facility] 8:36 AM [facility] REPOSITORY TYPE CODE TESTS RESULT OUT OF RANGE REFERENCE UNITS LAB GLUX 80-115 mg/dL High Glucose, 229 POC Performed By: #### GLUX #### Unless otherwise noted, all testing performed by [facility] [address] [place], [place] [address] CLIA: [id number] Staff Sonographer: Brandon Reina M.D. CBC W/DIFF, AUTOMATED Collected: 02/21/2018 Status: F Source: [place] 9:29 AM [facility] REPOSITORY Order Comment: SEND RESULTS OF BMP AND CBCD TO TYPE CODE TESTS RESULT OUT OF RANGE REFERENCE UNITS LAB L100.1000 4.4-11.0 K/mm3 Normal WBC 7.3 LAB L100.1200 4.6-6.2 M/mm3 Normal RBC 5.65 LAB L100.1300 13.0-16.5 g/dl Normal HGB 13.9 LAB L100.1400 40-54 % Normal HCT 45.3 LAB L100.1500 80-94 fL Normal MCV 80.2 LAB L100.1600 27.0-32.0 pg Low MCH 24.6 LAB L100.1700 32-36 g/gl Low MCHC 30.7 LAB L100.1810 11.6-14.6 % High RDW CV 17.3 LAB L100.1820 35.1-43.9 fl High RDW SD 50.5 LAB L100.1900 150-450 K/mm3 Normal PLT 171 LAB L100.2000 6.2-12.0 fl Normal MPV 9.4 LAB L100.2100 47-70 % High NEUT% 79.6 LAB L100.2200 19-41 % Low LY% 11.2 LAB L100.2300 0-10 % Normal MONO% 5.3 LAB L100.2400 0-5 % Normal EO% 3.7 LAB L100.2500 0-1 % Normal BASO% 0.1 LAB L100.2550 0.0-0.9 % Normal IM GRAN % 0.100 Result Comment: IG% - Immature Granulocytes (promyelocytes, myelocytes and metamyelocytes) > 1% indicates that a LEFT SHIFT is Present. LAB L100.2620 2.0-7.7 X10 3/uL Normal Absolute Neut 5.8 LAB L100.2720 0.83-4.51 X10 3/ul Low Absolute Lymph 0.82 Performed By: #### L100.0100 #### [facility] [address] [place], [address] PROTHROMBIN TIME W/INR Collected: 02/21/2018 Status: F Source: [place] 9:29 AM [facility] REPOSITORY TYPE CODE TESTS RESULT OUT OF RANGE REFERENCE UNITS LAB L300.4150 11.7-14.9 SECONDS High PROTIME 25.9 LAB L300.4200 Normal INR 2.4 Performed By: #### L300.3900 #### [facility] [address] [place], [address] BASIC METABOLIC Collected: 02/21/2018 Status: F Source: [place] PROFILE (BMP) 9:29 AM [facility] REPOSITORY Order Comment: SEND RESULTS OF BMP AND CBCD TO TYPE CODE TESTS RESULT OUT OF RANGE REFERENCE UNITS LAB L501.0100 74-106 mg/dL High GLU 177 Result Comment: Fasting Glucose result greater than or equal to 126 mg/dL suggests DIABETES MELLITUS per A.D.A. criteria. Please note revised GLUCOSE reference range effective 2017. LAB L501.1000 7-18 mg/dL High BUN 20 LAB L501.1100 0.70-1.30 mg/dL High CREAT,SERUM 1.32 Result Comment: The validity of the calculated GFR AND GFRAA in patients over 70 years has not been determined. Clinical correlation is essential. LAB L501.1110 >60 mL/min Low EST GFR 58 Result Comment: Non- GFR Calc LAB L501.1115 >60 mL/min Normal EST GFR - AA 71 Result Comment: GFR Calc LAB L501.1300 10-20 RATIO Normal BUN/CRE 15.2 LAB L501.2200 8.5-10.1 mg/dL CA Normal 8.9 LAB L501.5300 136-145 mmol/L NA Normal 137 LAB L501.5600 3.5-5.1 mmol/L K Normal 3.8 LAB L501.5900 98-107 mmol/L CL Normal 104 LAB L501.6100 21.0-32.0 mmol/L Normal CO2 26.0 LAB L501.6200 5-15 Normal GAP 7 Performed By: #### L500.2500 #### [facility] [address] [place], [address] ECHOCARDIOGRAM LIMITED Observed: 02/11/2018 Status: F Source: [facility] 2:43 PM THREE REPOSITORY Transthoracic Echocardiogram Patient: NUZHAT FRANKLIN [facility] Rec#: [id number] (Age): 1955(62y) Height: 170.18(cm)/66(i Study Date: 02/11/2018 Weight: 110.68(kg)/243( Room#: BSA: 2.2 Type: Loc: Sex: M Reading: Beth Ocampo MD, RVPI Referring: Anai Infante MD Blue Line Trimmer: Lios Cabrera RN, [facility] History: Aortic Valve replacement. Cancer. Cardiomyopathy. Coronary artery disease. -s/p CABG x 3 with SVG to LAD, SVG to OM1 and SVG to PDA Summary: Patient identity verified (pause and confirm). Current HP present on patient chart. Procedure explained and patient verified understanding. Consent obtained for procedure. Limited views were obtained. Findings Reason For Study: LV function, evaluate. (Limited- wearing a life vest) Left Ventricle: The left ventricular size is moderate to severely dilated. There is severely decreased left ventricular systolic function. Abnormal left ventricular diastolic filling is observed, consistent with impaired relaxation. The ejection fraction is calculated to be 29% using the Method of Disks. Left Atrium: The left atrium is mildly dilated. Pericardium: There is a small pericardial effusion. HR BP 147/94 Measurements Chambers 2D Name Value Normal Range IVSd (2D) 1.12 cm none LVPWd (2D) 1.17 cm none IVS:LVPW ratio (2D) 0.96 ratio none LVIDd (2D) 5.24 cm none LVIDs (2D) 4.43 cm none LVIDd (2D) index 2.38 cm/m2 none LVIDs (2D) index 2.02 cm/m2 none LV FS (2D) 15.39 % none LV EF (2D) 29 % (60 - 100) EF Teichholz (2D) 32.27 % none Volumes/Mass Name Value Normal Range LA ESV SP 4CH (A/L) 92.5 ml none LA ESV SP 2CH (A/L) 73.9 ml none LA ESV BP (A/L) 84.42 ml none LA ESV BP (A/L) index 38.36 ml/m2 none LA ESV SP 4CH (MOD) 86.76 ml none LA ESV SP 2CH (MOD) 67.08 ml none LV EDV SP 4CH (MOD) 174.78 ml none LV ESV SP 4CH (MOD) 107.65 ml none EF SP 4CH (MOD) 38.41 % none LV EDV SP 2CH (MOD) 145.92 ml none LV ESV SP 2CH (MOD) 121.25 ml none EF SP 2CH (MOD) 16.91 % none LV EDV BP 159.53 ml none LV ESV BP 113.69 ml none BP EF (MOD) 28.74 % none LV EDV BP index 72.5 ml/m2 none LV ESV BP index 51.67 ml/m2 none LV mass (2D) 235.95 g none LV mass (2D) index 107.23 g/m2 none RWT 0.44 ratio none Diastolic/Systolic Function Name Value Normal Range MV E-wave Vmax 1.45 m/sec none LV septal e' Vmax 0.09 m/sec none LV lateral e' Vmax 0.17 m/sec none LV average e' Vmax 0.13 m/sec none LV E:e' septal ratio 16.07 ratio none LV E:e' lateral ratio 8.51 ratio none LV average E:e' ratio 11.12 ratio none Tricuspid Valve Name Value Normal Range TR Vmax 2.67 m/sec none TR peak gradient 28.54 mmHg none RAP 3 mmHg none RVSP 31.54 mmHg none IVC diameter 1.91 cm none Electronically Signed at 02/11/2018 14:43:10 by: Beth Ocampo MD, RVPI PROTHROMBIN TIME W/INR Collected: 02/07/2018 Status: F Source: [place] 9:03 AM [facility] REPOSITORY TYPE CODE TESTS RESULT OUT OF RANGE REFERENCE UNITS LAB L300.4150 11.7-14.9 SECONDS High PROTIME 22.2 LAB L300.4200 Normal INR 1.9 Performed By: #### L300.3900 #### [facility] [address] [place], [address] PROTHROMBIN TIME W/INR Collected: 01/24/2018 Status: F Source: [place] 8:58 AM [facility] REPOSITORY TYPE CODE TESTS RESULT OUT OF RANGE REFERENCE UNITS LAB L300.4150 11.7-14.9 SECONDS High PROTIME 23.4 LAB L300.4200 Normal INR 2.1 Performed By: #### L300.3900 #### [facility] [address] [place], [address] STRESS TEST ONLY, Observed: 01/10/2018 Status: F Source: [place] 10:56 AM [facility] REPOSITORY This is a summary report. The complete report is available in the patient's medical record. If you cannot access the medical record, please contact the sending organization for a detailed fax or copy. Stress test results reviewed. Agree with below findings. Anguiano treadmill score not applicable. PROTHROMBIN TIME W/INR Collected: 01/10/2018 Status: F Source: [place] 9:33 AM [facility] REPOSITORY Order Comment: Comments: Standing Order Comments: Standing Order TYPE CODE TESTS RESULT OUT OF RANGE REFERENCE UNITS LAB L300.4150 11.7-14.9 SECONDS High PROTIME 19.3 LAB L300.4200 Normal INR 1.6 Performed By: #### L300.3900 #### [facility] [address] [place], [address] CARDIOLOGY VISIT Observed: 01/07/2018 Status: F Source: [place] REPORT 3:34 PM [facility] REPOSITORY [facility] [address] [place] [address] OFFICE VISIT Date of Service: 01/07/18 MR#: [id number] Acct: [id number] Name: RIGOBERTO NOLAND Rep #: [id number] : 1955 Provider: Rui Walters MD Age/Sex: 62/M Location: [facility] Status: Signed HPI [facility] Chief Complaint: Follow-up postoperative evaluation. Details: RIGOBERTO NOLAND, is a 62 M who presents to the office today for a follow-up evaluation. He was seen by us in September and at that time was noted to be short of breath. He underwent cardiac catheterization which demonstrated an 80% right coronary artery lesion, 80% circumflex artery lesion, 80% diagonal lesion, and 50% left anterior descending artery lesion. In addition he was noted to have an aortic valve area of 0.82 cm with a mean gradient of 36.8 mmHg. His ejection fraction was estimated to be only 30%. He requested and was sent to [facility] where he underwent an aortic valve replacement with a 23 mm Neli Mcbride magna ease pericardial bioprosthetic valve and three- vessel coronary to bypass surgery with a saphenous vein graft to the left anterior descending artery, saphenous vein graft obtuse marginal branch, and saphenous vein graft to the posterior descending artery. The left internal mammary artery could not be used because of severe anterior mediastinal scarring with a history of non-Hodgkin's lymphoma and chest radiation. Postoperatively he was noted to have an episode of atrial fibrillation was started on amiodarone and Coumadin his ejection fraction remained at 30% and he has been sent home with a LifeVest to be scheduled for repeat echocardiogram on February 11, 2018 at [place] and a consideration by the liaison planner for possible ICD. He has been doing well otherwise he is mildly fatigued but no chest pain or shortness of breath paroxysmal nocturnal dyspnea or pedal edema. His electrocardiogram today demonstrates sinus rhythm with a rate of 98 bpm and an incomplete left bundle branch block. His physical exam demonstrates clear lung andrade regular rate and rhythm and no pedal edema. Intake Vital Signs01/07/18 Height 5 ft 9 in 01/07/18 Weight: 247 lb 01/07/18 Body Mass Index (BMI) 36.4 01/07/18 Blood Pressure 140/82 01/07/18 Blood Pressure Location Lt brachial Intake Visit Reasons: f/up to surgery @ [facility] 5-16 (DO NOT MOVE) Antisqueak Worker Required: No Accompanied by: none Is patient in pain?: No Allergies meperidine [From Demerol] Adverse Reaction (Severe, Verified 01/07/18 15:02) Syncope shellfish Adverse Reaction (Severe, Uncoded 10/11/17 07:06) Diarrhea Medications carvedilol 25 mg tablet 25 mg PO BID #180 tab 10/20/17 [Rx Confirmed 01/07/18] pravastatin 40 mg tablet 80 mg PO QHS #180 tab 11/01/17 [Rx Confirmed 01/07/18] amiodarone 200 mg tablet 200 mg PO QDAY #90 tab 01/07/18 [Rx Confirmed 01/07/18] aspirin 81 mg tablet,delayed release 81 mg PO ONCE 01/07/18 [History Confirmed 01/07/18] esomeprazole magnesium 40 mg capsule,delayed release 40 mg PO QDAY 01/07/18 [History Confirmed 01/07/18] insulin NPH-regular human 100 unit/mL (70-30) subcutaneous cartridge 10 unit SC QAM 01/07/18 [History Confirmed 01/07/18] warfarin 5 mg tablet 5 mg PO QDAY 01/07/18 [History Confirmed 01/07/18] Ejection fraction %: 30 to 34 PFSH Medical History Atherosclerotic heart disease of [place] coronary artery with other forms of angina pectoris (Chronic) 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) Hyperlipidemia (Chronic) Cardiomyopathy in other diseases classified elsewhere (Chronic) Congestive heart failure (Chronic) Nonrheumatic aortic (valve) stenosis (Chronic) Surgical History H/O aortic valve replacement (Resolved) History of fusion of cervical spine (Resolved) Family History Father CAD (coronary artery disease) Mother Hypertension Social History Smoking Status: Never smoker alcohol intake: never substance use type: does not use diet: diabetic caffeine: Yes Type: carbonated beverages what type of physical activity do you participate in: none seatbelt use: always do you feel safe at home: Yes ROS Const Const: Positive for fatigue and weakness; negative for night sweats, excessive sweating, frequent falls, headache(s) or daytime sleepiness Eyes Eyes: Negative for loss of peripheral vision, transient loss of vision, blind spots, double vision or blurry vision ENT ENT: Positive for dizziness; negative for headache(s), balance problems, Nosebleed/epistaxis, tongue swelling or lip swelling Cardio Chest Pain: No Palpitations: No Edema: None Muscle aches with walking: None Resp Respiratory: Negative for SOB at rest, SOB orthopnea\SOB lying down, Cough, paroxysmal nocturnal dyspnea or SOB with activity GI GI: Negative nausea, vomiting, heartburn, black,tarry stools or bright, red blood in stools : Negative for hematuria Musc Musc: Positive for muscle weakness; negative for balance problems, muscle aches/ myalgia or joint pain Skin Skin: Negative non-healing lesions, unusual bruising or rash Neuro Neuro: Positive for weakness and dizziness; negative for frequent falls, headache(s), double vision, lightheadedness, orthostatic symptoms, blurry vision or lack of coordination [place] Hematologic/Lymphatic: Negative for easy bruising or easy bleeding Endo Endo: Positive for fatigue; negative for excessive sweating, cold intolerance, heat intolerance, increased thirst/drinking or hair loss Psych Psych: Negative for anxiety or depression Allergy Allergy/Immunology: Negative for throat swelling, Negative for tongue swelling, Negative for hives, Negative for rash, Negative for lip swelling Cardiology Exam Const Appearance: cooperative, healthy appearing, well developed, well groomed and no acute distress Nutritional Appearance: well nourished and average body habitus Orientation: alert, awake and oriented x3 Head Head: normal to inspection, normocephalic and atraumatic Ears: hearing grossly normal bilaterally and external ears normal Nose: external nose normal, nasal mucous membranes and turbinates normal, nares normal, septum normal, no nasal discharge Face and Sinus: face symmetric Mouth: oral mucosae normal, tongue normal, oropharynx normal and moist mucous membranes Teeth and gingiva: dentition normal Throat: posterior oropharynx normal, tonsils normal and uvula midline Eyes General: appearance normal, both eyes and all related structures Eyelids: eyelids normal Conjunctivae: conjunctivae normal Pupils: PERRL, normal by confrontation and accommodation normal EOM: EOM intact bilaterally Neck Neck: normal visual inspection, trachea midline and no JVD JVD: +5 Carotids: normal carotid upstroke and bounding pulses Chest Chest inspection: normal inspection of the chest, symmetric chest movement and normal respiratory effort Auscultation: Bilateral: Clear to Auscultation Cardio Palpation: normal PMI Rate: regular rate Rhythm: regular rhythm Heart sounds: S1 normal, S2 normal and normal, physiologic split S2; negative rub, gallop or murmur GI GI: normal to inspection, soft, no hepatosplenomegaly and bowel sounds present Neuro General: alert, awake, oriented x3, no focal sensory deficit, gait normal and moves all extremities Skin Skin: no rashes or lesions noted Extremities Pulses: Normal: Right Femoral Pulse, Left Femoral Pulse, Right Dorsalis Pedis Pulse, Left Dorsalis Pedis Pulse, Right Posterior Tibial Pulse, Left Posterior Tibial Pulse, Right Radial Pulse, Left Radial Pulse Lower Extremity Edema: None: Bilateral Musculoskel Musculoskeletal: No joint tenderness Psych Psychological: normal affect Assessment AND Plan 1. S/P aortic valve replacement Z95.2 Plan He is status post successful aortic valve replacement and he is due to have an echocardiogram to reassess the above. He will have antibiotic prophylaxis for his Neli-Mcbride valve. Orders Orders: 2. S/P CABG x 3 Z95.1 Plan He is status post carotid bypass surgery 3 as noted above. He appears to be doing well he is scheduled to start cardiac rehabilitation at [facility] in 3 days. He will continue with that program. 3. Cardiomyopathy in other diseases classified elsewhere I43 Plan He does have a history of cardiomyopathy which is likely secondary to ischemic and nonischemic cardiomyopathy his last ejection fraction was 30% he is scheduled for repeat echocardiogram in February 11 and depending on those findings he may be considered for an ICD placement. Orders Orders: 4. Hyperlipidemia E78.5 Plan He will continue with aggressive risk factor modification for the above routine lipid profiles will be obtained. 5. Atrial flutter, paroxysmal I48.92 Plan He did have an episode of post operative atrial fibrillation flutter. He is currently on amiodarone and also on Coumadin. His electrocardiogram today demonstrates sinus rhythm with a rate of 98 bpm. The recommendation would be for him to follow- up with the liaison planner and at that time hopefully if he is still maintaining sinus rhythm the amiodarone can be discontinued together with the anticoagulation. Plan Detail Other Orders Orders: Other Medications New: Discontinued: Follow Up 4 Months ([place]) Coding Level of Care Code Off vis,est,level 5 Diagnoses S/P aortic valve replacement Z95.2 S/P CABG x 3 Z95.1 Cardiomyopathy in other diseases classified elsewhere I43 Hyperlipidemia E78.5 Atrial flutter, paroxysmal I48.92 Coding Level of Care Code Off vis,est,level 5 Diagnoses S/P aortic valve replacement Z95.2 S/P CABG x 3 Z95.1 Cardiomyopathy in other diseases classified elsewhere I43 Hyperlipidemia E78.5 Atrial flutter, paroxysmal I48.92 01/07/18 1534 <Electronically signed by Rui Walters MD> Date Rui Walters MD Cosigner Signature: Date (if applicable) CC: Carolyn Ramachandran MD PROTHROMBIN TIME W/INR Collected: 12/27/2017 Status: F Source: [place] 9:49 AM [facility] REPOSITORY TYPE CODE TESTS RESULT OUT OF RANGE REFERENCE UNITS LAB L300.4150 11.7-14.9 SECONDS High PROTIME 29.3 LAB L300.4200 Normal INR 2.8 Performed By: #### L300.3900 #### [facility] [address] [place], [address] CHEST PA AND LATERAL Observed: 12/22/2017 Status: F Source: [facility] 10:12 AM [facility] REPOSITORY Final Report Accession No: [id number] Performed: Dec 22 2017 10:12AM Examination: CHEST PA AND LATERAL EXAMINATION: CHEST PA AND LATERAL HISTORY: CABG. TECHNIQUE: Frontal and lateral chest radiographs. COMPARISON: Chest radiographs 11/24/2017. FINDINGS: Stable median sternotomy wires and prosthetic valve. The cardiomediastinal silhouette is within normal limits in size. No focal consolidation, pleural effusion, or pneumothorax. Incidental azygos fissure. There are multilevel degenerative changes of the spine, and degenerative changes of the shoulders. No acute osseous abnormality. Partially visualized fusion hardware overlying the cervical spine. IMPRESSION: No acute cardiopulmonary process. Stable postsurgical changes. Interpreting Physician: LAKEISHA TOUSSAINT M.D. Trans: dcarr : cc: BASIC METABOLIC PANEL Collected: 12/22/2017 Status: F Source: [facility] 9:57 AM [facility] REPOSITORY TYPE CODE TESTS RESULT OUT OF RANGE REFERENCE UNITS LAB GLU 70-99 mg/dL Normal Glucose 99 Result Comment: This test result might be falsely depressed or falsely elevated on samples drawn from patients taking Sulfasalazine and Sulfapyridine. Venipuncture should occur prior to taking either of these drugs. LAB BUN 8-25 mg/dL Normal BUN 17 LAB CREA 0.80-1.30 mg/dL Normal Creatinine 1.24 LAB eGFR >60 ml/min/1.73s Low q.m eGFR,NonAfrican-A merican 59 Result Comment: Non- GFR Calc eGFR is an estimated Glomerular Filtration Rate based on the value of the patient's serum creatinine. In outpatients, eGFR should be used as a helpful tool in screening for CKD. In inpatients or patients with acute renal failure, eGFR represents the GFR at the moment of the draw and should be used with caution. LAB eGFRB ml/min/1.73sq.m eGFR, Normal -Canadian >=60 Result Comment: GFR Calc LAB CALCM 8.4-10.2 mg/dL Calcium Normal 9.2 LAB NA 135-145 mmol/L Sodium Normal 139 LAB K 3.5-5.1 mmol/L Normal Potassium 4.2 LAB CL 98-108 mmol/L Chloride Normal 103 LAB CO2 21-32 mmol/L CO2 Normal 29 Performed By: #### PT, CHEM8 #### Unless otherwise noted, all testing performed by [facility] [address] [place], [place] [address] CLIA: [id number] Staff Sonographer: [place] Reina M.D. PROTIME Collected: 12/22/2017 Status: F Source: [facility] 9:57 AM [facility] REPOSITORY TYPE CODE TESTS RESULT OUT OF REFERENCE UNITS RANGE LAB PT. 11.8-14.3 Seconds High Protime 25.6 LAB INR INR 2.37 Result Comment: The [employer] recommended therapeutic range for Warfarin (Coumadin) therapy goals: PROPHYLAXIS/TREATMENT of: INR Venous Thrombosis, Pulmonary Embolism 2.0-3.0 Prevention of VTE (Orthopedic Surgery) 2.0-3.0 Atrial Fibrillation 2.0-3.0 Myocardial Infarction 2.0-3.0 Mechanical Prosthetic Heart Valves (Aortic position) 2.0-3.0 Mechanical Prosthetic Heart Valves (Mitral Position) 2.5-3.5 [employer] evidence-based clinical practice guidelines. CHEST. 2011 (9th ed) Performed By: #### PT, CHEM8 #### Unless otherwise noted, all testing performed by [facility] [address] [facility]. [place], [place] [address] CLIA: [id number] Staff Sonographer: [place] Reina M.D. PROTIME Collected: 12/17/2017 Status: F Source: [facility] 10:30 AM [facility] REPOSITORY TYPE CODE TESTS RESULT OUT OF REFERENCE UNITS RANGE LAB PT. 11.8-14.3 Seconds High Protime 25.3 LAB INR INR 2.34 Result Comment: The [employer] recommended therapeutic range for Warfarin (Coumadin) therapy goals: PROPHYLAXIS/TREATMENT of: INR Venous Thrombosis, Pulmonary Embolism 2.0-3.0 Prevention of VTE (Orthopedic Surgery) 2.0-3.0 Atrial Fibrillation 2.0-3.0 Myocardial Infarction 2.0-3.0 Mechanical Prosthetic Heart Valves (Aortic position) 2.0-3.0 Mechanical Prosthetic Heart Valves (Mitral Position) 2.5-3.5 [employer] evidence-based clinical practice guidelines. CHEST. 2011 (9th ed) Performed By: #### PT #### Unless otherwise noted, all testing performed by [facility] [address] [facility]. [place], [place] [address] CLIA: [id number] Staff Sonographer: [place] Reina M.D. PROTIME Collected: 12/13/2017 Status: F Source: [facility] 10:15 AM [facility] REPOSITORY TYPE CODE TESTS RESULT OUT OF REFERENCE UNITS RANGE LAB PT. 11.8-14.3 Seconds High Protime 24.3 LAB INR INR 2.22 Result Comment: The [employer] recommended therapeutic range for Warfarin (Coumadin) therapy goals: PROPHYLAXIS/TREATMENT of: INR Venous Thrombosis, Pulmonary Embolism 2.0-3.0 Prevention of VTE (Orthopedic Surgery) 2.0-3.0 Atrial Fibrillation 2.0-3.0 Myocardial Infarction 2.0-3.0 Mechanical Prosthetic Heart Valves (Aortic position) 2.0-3.0 Mechanical Prosthetic Heart Valves (Mitral Position) 2.5-3.5 [employer] evidence-based clinical practice guidelines. CHEST. 2012 (9th ed) Performed By: #### PT #### Unless otherwise noted, all testing performed by [facility] [address] [place], [place] [address] CLIA: [id number] Staff Sonographer: [place] Reina M.D. PROTIME Collected: 12/10/2017 Status: F Source: [facility] 10:45 AM [facility] REPOSITORY TYPE CODE TESTS RESULT OUT OF REFERENCE UNITS RANGE LAB PT. 11.8-14.3 Seconds High Protime 28.7 LAB INR INR 2.73 Result Comment: The [employer] recommended therapeutic range for Warfarin (Coumadin) therapy goals: PROPHYLAXIS/TREATMENT of: INR Venous Thrombosis, Pulmonary Embolism 2.0-3.0 Prevention of VTE (Orthopedic Surgery) 2.0-3.0 Atrial Fibrillation 2.0-3.0 Myocardial Infarction 2.0-3.0 Mechanical Prosthetic Heart Valves (Aortic position) 2.0-3.0 Mechanical Prosthetic Heart Valves (Mitral Position) 2.5-3.5 [employer] evidence-based clinical practice guidelines. CHEST. 2012 (9th ed) Performed By: #### PT #### Unless otherwise noted, all testing performed by [facility] [address] [place], [place] [address] CLIA: [id number] Staff Sonographer: [place] Reina M.D. PROTIME Collected: 12/06/2017 Status: F Source: [facility] 11:30 AM [facility] REPOSITORY TYPE CODE TESTS RESULT OUT OF REFERENCE UNITS RANGE LAB PT. 11.8-14.3 Seconds High Protime 27.6 LAB INR INR 2.61 Result Comment: The [employer] recommended therapeutic range for Warfarin (Coumadin) therapy goals: PROPHYLAXIS/TREATMENT of: INR Venous Thrombosis, Pulmonary Embolism 2.0-3.0 Prevention of VTE (Orthopedic Surgery) 2.0-3.0 Atrial Fibrillation 2.0-3.0 Myocardial Infarction 2.0-3.0 Mechanical Prosthetic Heart Valves (Aortic position) 2.0-3.0 Mechanical Prosthetic Heart Valves (Mitral Position) 2.5-3.5 [employer] evidence-based clinical practice guidelines. CHEST. 2012 (9th ed) Performed By: #### PT #### Unless otherwise noted, all testing performed by [address] [address] CLIA: [id number] Staff Sonographer: [place] Reina M.D. PROTIME Collected: 12/01/2017 Status: F Source: [facility] 9:22 AM [facility] REPOSITORY TYPE CODE TESTS RESULT OUT OF REFERENCE UNITS RANGE LAB PT. 11.8-14.3 Seconds High Protime 23.9 LAB INR INR 2.17 Result Comment: The [employer] recommended therapeutic range for Warfarin (Coumadin) therapy goals: PROPHYLAXIS/TREATMENT of: INR Venous Thrombosis, Pulmonary Embolism 2.0-3.0 Prevention of VTE (Orthopedic Surgery) 2.0-3.0 Atrial Fibrillation 2.0-3.0 Myocardial Infarction 2.0-3.0 Mechanical Prosthetic Heart Valves (Aortic position) 2.0-3.0 Mechanical Prosthetic Heart Valves (Mitral Position) 2.5-3.5 [employer] evidence-based clinical practice guidelines. CHEST. 2012 (9th ed) Performed By: #### PT #### Unless otherwise noted, all testing performed by [facility] [address] [place], [place] [address] CLIA: [id number] Staff Sonographer: [place] Reina M.D. PROTIME Collected: 11/26/2017 Status: F Source: [facility] 10:01 AM [facility] REPOSITORY TYPE CODE TESTS RESULT OUT OF REFERENCE UNITS RANGE LAB PT. 11.8-14.3 Seconds High Protime 26.3 LAB INR INR 2.45 Result Comment: The [employer] recommended therapeutic range for Warfarin (Coumadin) therapy goals: PROPHYLAXIS/TREATMENT of: INR Venous Thrombosis, Pulmonary Embolism 2.0-3.0 Prevention of VTE (Orthopedic Surgery) 2.0-3.0 Atrial Fibrillation 2.0-3.0 Myocardial Infarction 2.0-3.0 Mechanical Prosthetic Heart Valves (Aortic position) 2.0-3.0 Mechanical Prosthetic Heart Valves (Mitral Position) 2.5-3.5 [employer] evidence-based clinical practice guidelines. CHEST. 2012 (9th ed) Performed By: #### PT #### Unless otherwise noted, all testing performed by [facility] [address] [place], [place] [address] CLIA: [id number] Staff Sonographer: [place] Reina M.D. CHEST PA AND LATERAL Observed: 11/24/2017 Status: F Source: [facility] 9:28 AM [facility] REPOSITORY Final Report Accession No: [id number] Performed: Nov 24 2017 9:28AM Examination: CHEST PA AND LATERAL EXAM: CHEST PA AND LATERAL CLINICAL HISTORY: 62 year old male presenting with CABG. TECHNIQUE: Two view chest x-ray. COMPARISON: 11/17/2017. FINDINGS: No pneumothorax, pleural effusion, or focal airspace consolidation. Stable cardiomegaly. Postoperative changes of median sternotomy, aortic valvuloplasty, and CABG. The mediastinal contours are stable. Partial visualization of lower cervical spine fusion hardware. Multilevel degenerative changes of the thoracic spine are present. IMPRESSION: No acute cardiopulmonary process. No acute interval change compared to 11/17/2017. Interpreting Physician: RACHEL LYNCH D.O. Trans: mh : cc: BASIC METABOLIC PANEL Collected: 11/24/2017 Status: F Source: [facility] 9:09 AM [facility] REPOSITORY TYPE CODE TESTS RESULT OUT OF REFERENCE UNITS RANGE LAB GLU 70-99 mg/dL High Glucose 199 Result Comment: This test result might be falsely depressed or falsely elevated on samples drawn from patients taking Sulfasalazine and Sulfapyridine. Venipuncture should occur prior to taking either of these drugs. LAB BUN 8-25 mg/dL BUN High 27 LAB CREA 0.80-1.30 mg/dL Creatinine High 1.57 LAB eGFR >60 ml/min/1.73s Low q.m eGFR,NonAfrican-Am erican 45 Result Comment: Non- GFR Calc eGFR is an estimated Glomerular Filtration Rate based on the value of the patient's serum creatinine. In outpatients, eGFR should be used as a helpful tool in screening for CKD. In inpatients or patients with acute renal failure, eGFR represents the GFR at the moment of the draw and should be used with caution. LAB eGFRB >60 ml/min/1.73sq.m eGFR, -Canadian Low 54 Result Comment: GFR Calc LAB CALCM 8.4-10.2 mg/dL Calcium 9.0 LAB NA 135-145 mmol/L Sodium 136 LAB K 3.5-5.1 mmol/L Potassium 4.5 LAB CL 98-108 mmol/L Chloride 102 LAB CO2 21-32 mmol/L CO2 27 Performed By: #### PT, CHEM8 #### Unless otherwise noted, all testing performed by [address] [place], [place] [address] CLIA: [id number] Staff Sonographer: [place] Reina M.D. PROTIME Collected: 11/24/2017 Status: F Source: [facility] 9:09 AM [facility] REPOSITORY TYPE CODE TESTS RESULT OUT OF REFERENCE UNITS RANGE LAB PT. 11.8-14.3 Seconds High Protime 25.4 LAB INR INR 2.35 Result Comment: The [employer] recommended therapeutic range for Warfarin (Coumadin) therapy goals: PROPHYLAXIS/TREATMENT of: INR Venous Thrombosis, Pulmonary Embolism 2.0-3.0 Prevention of VTE (Orthopedic Surgery) 2.0-3.0 Atrial Fibrillation 2.0-3.0 Myocardial Infarction 2.0-3.0 Mechanical Prosthetic Heart Valves (Aortic position) 2.0-3.0 Mechanical Prosthetic Heart Valves (Mitral Position) 2.5-3.5 [employer] evidence-based clinical practice guidelines. CHEST. 2012 (9th ed) Performed By: #### PT, CHEM8 #### Unless otherwise noted, all testing performed by [address] [place], [place] [address] CLIA: [id number] Staff Sonographer: [place] Reina M.D. PROTIME Collected: 11/23/2017 Status: F Source: [facility] 9:32 AM [facility] REPOSITORY TYPE CODE TESTS RESULT OUT OF REFERENCE UNITS RANGE LAB PT. 11.8-14.3 Seconds High Protime 26.2 LAB INR INR 2.44 Result Comment: The [employer] recommended therapeutic range for Warfarin (Coumadin) therapy goals: PROPHYLAXIS/TREATMENT of: INR Venous Thrombosis, Pulmonary Embolism 2.0-3.0 Prevention of VTE (Orthopedic Surgery) 2.0-3.0 Atrial Fibrillation 2.0-3.0 Myocardial Infarction 2.0-3.0 Mechanical Prosthetic Heart Valves (Aortic position) 2.0-3.0 Mechanical Prosthetic Heart Valves (Mitral Position) 2.5-3.5 [employer] evidence-based clinical practice guidelines. CHEST. 2011 (9th ed) Performed By: #### PT #### Unless otherwise noted, all testing performed by [address] [address] CLIA: [id number] Staff Sonographer: [place] Reina M.D. PROTIME Collected: 11/20/2017 Status: F Source: [facility] 1:15 PM [facility] REPOSITORY TYPE CODE TESTS RESULT OUT OF REFERENCE UNITS RANGE LAB PT. 11.8-14.3 Seconds High Protime 24.5 LAB INR INR 2.24 Result Comment: The [employer] recommended therapeutic range for Warfarin (Coumadin) therapy goals: PROPHYLAXIS/TREATMENT of: INR Venous Thrombosis, Pulmonary Embolism 2.0-3.0 Prevention of VTE (Orthopedic Surgery) 2.0-3.0 Atrial Fibrillation 2.0-3.0 Myocardial Infarction 2.0-3.0 Mechanical Prosthetic Heart Valves (Aortic position) 2.0-3.0 Mechanical Prosthetic Heart Valves (Mitral Position) 2.5-3.5 [employer] evidence-based clinical practice guidelines. CHEST. 2011 (9th ed) Performed By: #### CHEM8, PT #### Unless otherwise noted, all testing performed by [address] [place], [place] [address] CLIA: [id number] Staff Sonographer: [place] Reina M.D. BASIC METABOLIC PANEL Collected: 11/20/2017 Status: F Source: [facility] 1:15 PM [facility] REPOSITORY TYPE CODE TESTS RESULT OUT OF REFERENCE UNITS RANGE LAB GLU 70-99 mg/dL High Glucose 161 Result Comment: This test result might be falsely depressed or falsely elevated on samples drawn from patients taking Sulfasalazine and Sulfapyridine. Venipuncture should occur prior to taking either of these drugs. LAB BUN 8-25 mg/dL BUN High 36 LAB CREA 0.80-1.30 mg/dL Creatinine High 1.67 LAB eGFR >60 ml/min/1.73s Low q.m eGFR,NonAfrican-Am erican 42 Result Comment: Non- GFR Calc eGFR is an estimated Glomerular Filtration Rate based on the value of the patient's serum creatinine. In outpatients, eGFR should be used as a helpful tool in screening for CKD. In inpatients or patients with acute renal failure, eGFR represents the GFR at the moment of the draw and should be used with caution. LAB eGFRB >60 ml/min/1.73sq.m eGFR, -Canadian Low 51 Result Comment: GFR Calc LAB CALCM 8.4-10.2 mg/dL Calcium 9.7 LAB NA 135-145 mmol/L Sodium 135 LAB K 3.5-5.1 mmol/L Potassium 4.2 LAB CL 98-108 mmol/L Chloride Low 97 LAB CO2 21-32 mmol/L CO2 30 Performed By: #### CHEM8, PT #### Unless otherwise noted, all testing performed by [address] [place], [place] [address] CLIA: [id number] Staff Sonographer: [place] Reina M.D. PROTIME Collected: 11/19/2017 Status: F Source: [facility] 10:15 AM [facility] REPOSITORY TYPE CODE TESTS RESULT OUT OF REFERENCE UNITS RANGE LAB PT. 11.8-14.3 Seconds High Protime 21.7 LAB INR INR 1.92 Result Comment: The [employer] recommended therapeutic range for Warfarin (Coumadin) therapy goals: PROPHYLAXIS/TREATMENT of: INR Venous Thrombosis, Pulmonary Embolism 2.0-3.0 Prevention of VTE (Orthopedic Surgery) 2.0-3.0 Atrial Fibrillation 2.0-3.0 Myocardial Infarction 2.0-3.0 Mechanical Prosthetic Heart Valves (Aortic position) 2.0-3.0 Mechanical Prosthetic Heart Valves (Mitral Position) 2.5-3.5 [employer] evidence-based clinical practice guidelines. CHEST. 2012 (9th ed) Performed By: #### PT, CHEM8 #### Unless otherwise noted, all testing performed by [facility] [address] [place], [place] [address] CLIA: [id number] Staff Sonographer: [place] Reina M.D. BASIC METABOLIC PANEL Collected: 11/19/2017 Status: F Source: [facility] 10:15 AM [facility] REPOSITORY TYPE CODE TESTS RESULT OUT OF REFERENCE UNITS RANGE LAB GLU 70-99 mg/dL High Glucose 158 Result Comment: This test result might be falsely depressed or falsely elevated on samples drawn from patients taking Sulfasalazine and Sulfapyridine. Venipuncture should occur prior to taking either of these drugs. LAB BUN 8-25 mg/dL BUN High 34 LAB CREA 0.80-1.30 mg/dL Creatinine High 1.55 LAB eGFR >60 ml/min/1.73s Low q.m eGFR,NonAfrican-Am erican 46 Result Comment: Non- GFR Calc eGFR is an estimated Glomerular Filtration Rate based on the value of the patient's serum creatinine. In outpatients, eGFR should be used as a helpful tool in screening for CKD. In inpatients or patients with acute renal failure, eGFR represents the GFR at the moment of the draw and should be used with caution. LAB eGFRB >60 ml/min/1.73sq.m eGFR, -Canadian Low 55 Result Comment: GFR Calc LAB CALCM 8.4-10.2 mg/dL Calcium 9.4 LAB NA 135-145 mmol/L Sodium 137 LAB K 3.5-5.1 mmol/L Potassium 4.6 LAB CL 98-108 mmol/L Chloride 98 LAB CO2 21-32 mmol/L CO2 30 Performed By: #### PT, CHEM8 #### Unless otherwise noted, all testing performed by [address] [address] CLIA: [id number] Staff Sonographer: Brandon Reina M.D. BASIC METABOLIC PANEL Collected: 11/18/2017 Status: F Source: [facility] 12:30 PM [facility] TYPE CODE TESTS RESULT OUT OF RANGE REFERENCE UNITS LAB GLU 70-99 mg/dL Normal Glucose 96 Result Comment: This test result might be falsely depressed or falsely elevated on samples drawn from patients taking Sulfasalazine and Sulfapyridine. Venipuncture should occur prior to taking either of these drugs. LAB BUN 8-25 mg/dL BUN High 35 LAB CREA 0.80-1.30 mg/dL Creatinine High 1.59 LAB eGFR >60 ml/min/1.73s Low q.m eGFR,NonAfrican-Am erican 44 Result Comment: Non- GFR Calc eGFR is an estimated Glomerular Filtration Rate based on the value of the patient's serum creatinine. In outpatients, eGFR should be used as a helpful tool in screening for CKD. In inpatients or patients with acute renal failure, eGFR represents the GFR at the moment of the draw and should be used with caution. LAB eGFRB >60 ml/min/1.73sq.m eGFR, -Canadian Low 54 Result Comment: GFR Calc LAB CALCM 8.4-10.2 mg/dL Calcium Normal 9.4 LAB NA 135-145 mmol/L Sodium Normal 138 LAB K 3.5-5.1 mmol/L Normal Potassium 4.1 LAB CL 98-108 mmol/L Chloride Normal 100 LAB CO2 21-32 mmol/L CO2 Normal 30 Performed By: #### CHEM8, PT #### Unless otherwise noted, all testing performed by [address] [address] CLIA: [id number] Staff Sonographer: Brandon Reina M.D. PROTIME Collected: 11/18/2017 Status: F Source: [facility] 12:30 PM [facility] TYPE CODE TESTS RESULT OUT OF REFERENCE UNITS RANGE LAB PT. 11.8-14.3 Seconds High Protime 20.6 LAB INR INR 1.81 Result Comment: The [employer] recommended therapeutic range for Warfarin (Coumadin) therapy goals: PROPHYLAXIS/TREATMENT of: INR Venous Thrombosis, Pulmonary Embolism 2.0-3.0 Prevention of VTE (Orthopedic Surgery) 2.0-3.0 Atrial Fibrillation 2.0-3.0 Myocardial Infarction 2.0-3.0 Mechanical Prosthetic Heart Valves (Aortic position) 2.0-3.0 Mechanical Prosthetic Heart Valves (Mitral Position) 2.5-3.5 [employer] evidence-based clinical practice guidelines. CHEST. 2012 (9th ed) Performed By: #### CHEM8, PT #### Unless otherwise noted, all testing performed by [address] [address] CLIA: [id number] Staff Sonographer: Brandon Reina M.D. CHEST PA AND LATERAL Observed: 11/17/2017 Status: F Source: [facility] 10:57 AM [facility] Final Report Accession No: [id number] Performed: Nov 17 2017 10:57AM Examination: CHEST PA AND LATERAL EXAM: CHEST PA AND LATERAL CLINICAL HISTORY: 62-year-old male presenting with CABG. COMPARISON: 11/14/2017. TECHNIQUE: 2 view chest x-ray. COMPARISON: None. FINDINGS: No pneumothorax, pleural effusion or focal airspace consolidation. Normal variant right upper lobe accessory azygous fissure. Stable cardiomegaly. Mediastinal contours are stable. Postsurgical changes of median sternotomy, CABG and aortic valvuloplasty. Multilevel degenerative changes of the thoracic spine.. IMPRESSION: 1. No acute findings. 2. Mild cardiomegaly with stable postsurgical changes. Interpreting Physician: RACHEL LYNCH D.O. Trans: tk : cc: BASIC METABOLIC PANEL Collected: 11/17/2017 Status: F Source: [facility] 10:37 AM [facility] TYPE CODE TESTS RESULT OUT OF REFERENCE UNITS RANGE LAB GLU 70-99 mg/dL High Glucose 176 Result Comment: This test result might be falsely depressed or falsely elevated on samples drawn from patients taking Sulfasalazine and Sulfapyridine. Venipuncture should occur prior to taking either of these drugs. LAB BUN 8-25 mg/dL BUN High 32 LAB CREA 0.80-1.30 mg/dL Creatinine High 1.37 LAB eGFR >60 ml/min/1.73s Low q.m eGFR,NonAfrican-Am erican 53 Result Comment: Non- GFR Calc eGFR is an estimated Glomerular Filtration Rate based on the value of the patient's serum creatinine. In outpatients, eGFR should be used as a helpful tool in screening for CKD. In inpatients or patients with acute renal failure, eGFR represents the GFR at the moment of the draw and should be used with caution. LAB eGFRB ml/min/1.73sq.m eGFR, -Canadian >=60 Result Comment: GFR Calc LAB CALCM 8.4-10.2 mg/dL Calcium 8.9 LAB NA 135-145 mmol/L Sodium 137 LAB K 3.5-5.1 mmol/L Potassium 4.4 LAB CL 98-108 mmol/L Chloride 102 LAB CO2 21-32 mmol/L CO2 27 Performed By: #### CHEM8, PT #### Unless otherwise noted, all testing performed by [place] [address] [address] [place], [place] [address] CLIA: [id number] Staff Sonographer: Brandon Reina M.D. PROTIME Collected: 11/17/2017 Status: F Source: [facility] 10:37 AM [facility] TYPE CODE TESTS RESULT OUT OF REFERENCE UNITS RANGE LAB PT. 11.8-14.3 Seconds High Protime 21.1 LAB INR INR 1.86 Result Comment: The [employer] recommended therapeutic range for Warfarin (Coumadin) therapy goals: PROPHYLAXIS/TREATMENT of: INR Venous Thrombosis, Pulmonary Embolism 2.0-3.0 Prevention of VTE (Orthopedic Surgery) 2.0-3.0 Atrial Fibrillation 2.0-3.0 Myocardial Infarction 2.0-3.0 Mechanical Prosthetic Heart Valves (Aortic position) 2.0-3.0 Mechanical Prosthetic Heart Valves (Mitral Position) 2.5-3.5 [employer] evidence-based clinical practice guidelines. CHEST. 2012 (9th ed) Performed By: #### CHEM8, PT #### Unless otherwise noted, all testing performed by [address] [address] CLIA: [id number] Staff Sonographer: Brandon Reina M.D. PROTIME Collected: 11/16/2017 Status: F Source: [facility] 12:30 PM [facility] TYPE CODE TESTS RESULT OUT OF REFERENCE UNITS RANGE LAB PT. 11.8-14.3 Seconds High Protime 20.6 LAB INR INR 1.80 Result Comment: The [employer] recommended therapeutic range for Warfarin (Coumadin) therapy goals: PROPHYLAXIS/TREATMENT of: INR Venous Thrombosis, Pulmonary Embolism 2.0-3.0 Prevention of VTE (Orthopedic Surgery) 2.0-3.0 Atrial Fibrillation 2.0-3.0 Myocardial Infarction 2.0-3.0 Mechanical Prosthetic Heart Valves (Aortic position) 2.0-3.0 Mechanical Prosthetic Heart Valves (Mitral Position) 2.5-3.5 [employer] evidence-based clinical practice guidelines. CHEST. 2011 (9th ed) Performed By: #### PT #### Unless otherwise noted, all testing performed by [address] [address] CLIA: [id number] Staff Sonographer: Brandon Reina M.D. PROTIME Collected: 11/15/2017 Status: F Source: [facility] 1:00 PM [facility] TYPE CODE TESTS RESULT OUT OF REFERENCE UNITS RANGE LAB PT. 11.8-14.3 Seconds High Protime 16.4 LAB INR INR 1.35 Result Comment: The [employer] recommended therapeutic range for Warfarin (Coumadin) therapy goals: PROPHYLAXIS/TREATMENT of: INR Venous Thrombosis, Pulmonary Embolism 2.0-3.0 Prevention of VTE (Orthopedic Surgery) 2.0-3.0 Atrial Fibrillation 2.0-3.0 Myocardial Infarction 2.0-3.0 Mechanical Prosthetic Heart Valves (Aortic position) 2.0-3.0 Mechanical Prosthetic Heart Valves (Mitral Position) 2.5-3.5 [employer] evidence-based clinical practice guidelines. CHEST. 2012 (9th ed) Performed By: #### PT #### Unless otherwise noted, all testing performed by [address] [address] CLIA: [id number] Staff Sonographer: Brandon Reina M.D. GLUCOSE, POC Collected: 11/14/2017 Status: F Source: [facility] 4:04 PM [facility] TYPE CODE TESTS RESULT OUT OF RANGE REFERENCE UNITS LAB GLUX 80-115 mg/dL High Glucose, 118 POC Performed By: #### GLUX #### Unless otherwise noted, all testing performed by [address] [address] CLIA: [id number] Staff Sonographer: Brandon Reina M.D. GLUCOSE, POC Collected: 11/14/2017 Status: F Source: [facility] 11:47 AM [facility] TYPE CODE TESTS RESULT OUT OF RANGE REFERENCE UNITS LAB GLUX 80-115 mg/dL High Glucose, 169 POC Performed By: #### GLUX #### Unless otherwise noted, all testing performed by [address] [address] CLIA: [id number] Staff Sonographer: Brandon Reina M.D. CHEST (ONE VIEW Observed: 11/14/2017 Status: F Source: [facility] ONLY) 5:41 AM [facility] Final Report Accession No: [id number] Performed: Nov 14 2017 5:41AM Examination: CHEST (ONE VIEW ONLY) CHEST 1 VIEW, 11/14/2017: CLINICAL INDICATION: Cough. Status post CABG. COMPARISON: Chest, 11/13/2017. FINDINGS: Sternotomy wires for recent CABG are noted, with overlying midline skin obdulio, unchanged. Mild cardiomegaly is mildly improved. Pulmonary vascularity is within normal limits. An azygos lobe and fissure are incidentally noted. The lungs and pleural spaces appear clear. Anterior cervical fusion hardware is unchanged. IMPRESSION: Mild cardiomegaly, without acute cardiopulmonary disease. Interpreting Physician: KIM ROSENTHAL M.D. Trans: n/a : cc: CBC W/O DIFF Collected: 11/14/2017 Status: F Source: [facility] 5:37 AM [facility] TYPE CODE TESTS RESULT OUT OF RANGE REFERENCE UNITS LAB WBC 3.6-10.4 K/mcL WBC Normal 9.2 LAB RBC 4.0-5.5 M/mcL Low RBC 3.56 LAB HGB 12.9-16.9 g/dL Low Hemoglobin 10.3 LAB HCT 37.9-49.2 % Low Hematocrit 31.0 LAB MCV 82.8-99.3 FL MCV Normal 87.0 LAB MCH 27.7-34.6 pg MCH Normal 28.9 LAB MCHC 32.9-35.5 g/dL MCHC Normal 33.2 LAB RDW 10-14.3 % RDW Normal 14.3 LAB PLT 139-354 K/mcL Platelet Normal Count 143 LAB MPV 6.6-10.8 FL MPV Normal 7.7 Performed By: #### CHEM8, CBCWOD #### Unless otherwise noted, all testing performed by [facility] [address] [place] [address] CLIA: [id number] Staff Sonographer: Brandon Reina M.D. BASIC METABOLIC PANEL Collected: 11/14/2017 Status: F Source: [facility] 5:37 [facility] REPOSITORY TYPE CODE TESTS RESULT OUT OF REFERENCE UNITS RANGE LAB GLU 70-99 mg/dL High Glucose 109 Result Comment: This test result might be falsely depressed or falsely elevated on samples drawn from patients taking Sulfasalazine and Sulfapyridine. Venipuncture should occur prior to taking either of these drugs. LAB BUN 8-25 mg/dL BUN High 49 LAB CREA 0.80-1.30 mg/dL Creatinine High 1.60 LAB eGFR >60 ml/min/1.73s Low q.m eGFR,NonAfrican-Am erican 44 Result Comment: Non- GFR Calc eGFR is an estimated Glomerular Filtration Rate based on the value of the patient's serum creatinine. In outpatients, eGFR should be used as a helpful tool in screening for CKD. In inpatients or patients with acute renal failure, eGFR represents the GFR at the moment of the draw and should be used with caution. LAB eGFRB >60 ml/min/1.73sq.m eGFR, -Canadian Low 53 Result Comment: GFR Calc LAB CALCM 8.4-10.2 mg/dL Calcium Low 8.1 LAB NA 135-145 mmol/L Sodium Low 134 LAB K 3.5-5.1 mmol/L Potassium 4.0 LAB CL 98-108 mmol/L Chloride 101 LAB CO2 21-32 mmol/L CO2 26 Performed By: #### CHEM8, CBCWOD #### Unless otherwise noted, all testing performed by [place] [address] CLIA: [id number] Staff Sonographer: Brandon Reina M.D. POTASSIUM Collected: 11/14/2017 Status: F Source: [facility] 3:43 AM [facility] TYPE CODE TESTS RESULT OUT OF RANGE REFERENCE UNITS LAB K 3.5-4.9 mmol/L Normal Potassium 3.8 Performed By: #### K #### Unless otherwise noted, all testing performed by [place] [address] CLIA: [id number] Staff Sonographer: Brandon Reina M.D. GLUCOSE, POC Collected: 11/14/2017 Status: F Source: [facility] 12:55 AM [facility] TYPE CODE TESTS RESULT OUT OF RANGE REFERENCE UNITS LAB GLUX 80-115 mg/dL Normal Glucose, 101 POC Performed By: #### GLUX #### Unless otherwise noted, all testing performed by [place] [address] CLIA: [id number] Staff Sonographer: Brandon Reina M.D. POTASSIUM Collected: 11/14/2017 Status: F Source: [facility] 12:27 AM [facility] TYPE CODE TESTS RESULT OUT OF RANGE REFERENCE UNITS LAB K 3.5-4.9 mmol/L Normal Potassium 3.5 Performed By: #### K #### Unless otherwise noted, all testing performed by [place] [address] CLIA: [id number] Staff Sonographer: Brandon Reina M.D. POTASSIUM Collected: 11/13/2017 Status: F Source: [facility] 10:07 PM [facility] TYPE CODE TESTS RESULT OUT OF REFERENCE UNITS RANGE LAB K 3.5-4.9 mmol/L Low Potassium 3.4 Performed By: #### K #### Unless otherwise noted, all testing performed by [place] [address] CLIA: [id number] Staff Sonographer: Brandon Reina M.D. GLUCOSE, POC Collected: 11/13/2017 Status: F Source: [facility] 8:40 PM [facility] TYPE CODE TESTS RESULT OUT OF RANGE REFERENCE UNITS LAB GLUX 80-115 mg/dL High Glucose, 143 POC Performed By: #### GLUX #### Unless otherwise noted, all testing performed by [place] [address] CLIA: [id number] Staff Sonographer: Brandon Reina M.D. POTASSIUM Collected: 11/13/2017 Status: F Source: [facility] 6:15 PM [facility] TYPE CODE TESTS RESULT OUT OF RANGE REFERENCE UNITS LAB K 3.5-4.9 mmol/L Normal Potassium 3.9 Performed By: #### K #### Unless otherwise noted, all testing performed by [place] [address] CLIA: [id number] Staff Sonographer: Brandon Reina M.D. GLUCOSE, POC Collected: 11/13/2017 Status: F Source: [facility] 4:48 PM [facility] TYPE CODE TESTS RESULT OUT OF RANGE REFERENCE UNITS LAB GLUX 80-115 mg/dL High Glucose, 192 POC Performed By: #### GLUX #### Unless otherwise noted, all testing performed by [address] [address] CLIA: [id number] Staff Sonographer: Brandon Reina M.D. POTASSIUM Collected: 11/13/2017 Status: F Source: [facility] 2:01 PM [facility] TYPE CODE TESTS RESULT OUT OF RANGE REFERENCE UNITS LAB K 3.5-4.9 mmol/L Normal Potassium 3.6 Performed By: #### K #### Unless otherwise noted, all testing performed by [address] [address] CLIA: [id number] Staff Sonographer: Brandon Reina M.D. GLUCOSE, POC Collected: 11/13/2017 Status: F Source: [facility] 11:58 AM [facility] TYPE CODE TESTS RESULT OUT OF RANGE REFERENCE UNITS LAB GLUX 80-115 mg/dL High Glucose, 220 POC Performed By: #### GLUX #### Unless otherwise noted, all testing performed by [address] [address] CLIA: [id number] Staff Sonographer: Brandon Reina M.D. CHEST (ONE VIEW Observed: 11/13/2017 Status: F Source: [facility] ONLY) 5:31 AM [facility] Final Report Accession No: [id number] Performed: Nov 13 2017 5:31AM Examination: CHEST (ONE VIEW ONLY) PROCEDURE: CHEST (ONE VIEW ONLY) REASON FOR STUDY/CLINICAL HISTORY: On Ventilator. COMPARISON STUDY: Prior dated 11/12/2017. Single frontal view(s) of the chest presented for interpretation. FINDINGS: Right vascular access catheter with its tip overlying the cavoatrial junction. Minimal bilateral parenchymal airspace disease. Surgical obdulio and median sternotomy wires with postsurgical changes in the pericardium. Minimal atelectasis at the lung bases. Stable cardiomediastinal silhouette. No focal consolidation, edema, or large effusion. No acute appearing focal significant bony abnormality. Postsurgical changes in the cervical spine again identified. IMPRESSION: Minimal bibasilar atelectasis with stable appearance of a right vascular access catheter. Mild bilateral parenchymal airspace disease is unchanged. Interpreting Physician: DIOR LR D.O. Trans: bminni : cc: CBC W/O DIFF Collected: 11/13/2017 Status: F Source: [facility] 4:33 AM [facility] TYPE CODE TESTS RESULT OUT OF REFERENCE UNITS RANGE LAB WBC 3.6-10.4 K/mcL WBC High 10.8 LAB RBC 4.0-5.5 M/mcL Low RBC 3.39 LAB HGB 12.9-16.9 g/dL Low Hemoglobin 9.9 LAB HCT 37.9-49.2 % Low Hematocrit 29.4 LAB MCV 82.8-99.3 FL MCV 86.5 LAB MCH 27.7-34.6 pg MCH 29.2 LAB MCHC 32.9-35.5 g/dL MCHC 33.8 LAB RDW 10-14.3 % RDW 14.1 LAB PLT 139-354 K/mcL Low Platelet Count 98 LAB MPV 6.6-10.8 FL MPV 7.9 Result Comment: Smear reviewed to evaluate platelet count and morphology. Performed By: #### CBCWOD, CHEM8 #### Unless otherwise noted, all testing performed by [place] [address] [address] [place], [place] [address] CLIA: [id number] Staff Sonographer: Brandon Reina M.D. BASIC METABOLIC PANEL Collected: 11/13/2017 Status: F Source: [facility] 4:33 AM [facility] TYPE CODE TESTS RESULT OUT OF REFERENCE UNITS RANGE LAB GLU 70-99 mg/dL High Glucose 217 Result Comment: This test result might be falsely depressed or falsely elevated on samples drawn from patients taking Sulfasalazine and Sulfapyridine. Venipuncture should occur prior to taking either of these drugs. LAB BUN 8-25 mg/dL BUN High 41 LAB CREA 0.80-1.30 mg/dL Creatinine High 1.65 LAB eGFR >60 ml/min/1.73s Low q.m eGFR,NonAfrican-Am erican 42 Result Comment: Non- GFR Calc eGFR is an estimated Glomerular Filtration Rate based on the value of the patient's serum creatinine. In outpatients, eGFR should be used as a helpful tool in screening for CKD. In inpatients or patients with acute renal failure, eGFR represents the GFR at the moment of the draw and should be used with caution. LAB eGFRB >60 ml/min/1.73sq.m eGFR, -Canadian Low 51 Result Comment: GFR Calc LAB CALCM 8.4-10.2 mg/dL Calcium Low 7.8 LAB NA 135-145 mmol/L Sodium Low 132 LAB K 3.5-5.1 mmol/L Potassium 4.4 LAB CL 98-108 mmol/L Chloride 101 LAB CO2 21-32 mmol/L CO2 23 Performed By: #### CBCWOD, CHEM8 #### Unless otherwise noted, all testing performed by [place] [address] CLIA: [id number] Staff Sonographer: Brandon Reina M.D. GLUCOSE, POC Collected: 11/13/2017 Status: F Source: [facility] 2:36 AM [facility] TYPE CODE TESTS RESULT OUT OF RANGE REFERENCE UNITS LAB GLUX 80-115 mg/dL High Glucose, 223 POC Performed By: #### GLUX #### Unless otherwise noted, all testing performed by [place] [id number] CLIA: [id number] Staff Sonographer: Brandon Reina M.D. GLUCOSE, POC Collected: 11/12/2017 Status: F Source: [facility] 8:26 PM [facility] TYPE CODE TESTS RESULT OUT OF RANGE REFERENCE UNITS LAB GLUX 80-115 mg/dL High Glucose, 265 POC Performed By: #### GLUX #### Unless otherwise noted, all testing performed by [address] [address] CLIA: [id number] Staff Sonographer: Brandon Reina M.D. GLUCOSE, POC Collected: 11/12/2017 Status: F Source: [facility] 4:37 PM [facility] TYPE CODE TESTS RESULT OUT OF RANGE REFERENCE UNITS LAB GLUX 80-115 mg/dL High Glucose, 222 POC Performed By: #### GLUX #### Unless otherwise noted, all testing performed by [address] [address] CLIA: [id number] Staff Sonographer: Brandon Reina M.D. GLUCOSE, POC Collected: 11/12/2017 Status: F Source: [facility] 11:42 AM [facility] TYPE CODE TESTS RESULT OUT OF RANGE REFERENCE UNITS LAB GLUX 80-115 mg/dL High Glucose, 202 POC Performed By: #### GLUX #### Unless otherwise noted, all testing performed by [address] [address] CLIA: [id number] Staff Sonographer: Brandon Reina M.D. OPERATION-PROCEDURE Observed: 11/12/2017 Status: F Source: [facility] 11:[address] [address] NAME RIGOBERTO [facility] [id number] 1955 DATE 11/10/2017 OPERATIVE REPORT / PROCEDURE NOTE SURGEON CAROLYN GREY MD PREOPERATIVE DIAGNOSIS Aortic valve replacement and 3-vessel coronary artery bypass grafting. POSTOPERATIVE DIAGNOSIS Aortic valve replacement and 3-vessel coronary artery bypass grafting. PROCEDURE Intraoperative epiaortic ultrasound guidance for safer aortic cannulation. ANESTHESIA General endotracheal. INDICATIONS This 62-year-old gentleman is undergoing aortic valve replacement and coronary artery bypass grafting. OPERATIVE FINDINGS AND PROCEDURE Following attempts at internal mammary artery mobilization, the Harris retractor was placed. The pericardium was opened. The aorta was examined with ultrasound from the anulus to the base of the innominate artery. There is significant calcification of the coronary sinuses with minimal calcification in the ascending aorta. Cannulation was uneventful. The rest of the case is dictated separately. I was present and scrubbed throughout the case. MD April INIGUEZ 11/12/2017 11:32 [id number] T 11/12/2017 12:19 DAB/MODL Electronically Signed By Carolyn Grey M.D. on 12 Nov 2017 17:32:35 GMT GLUCOSE, POC Collected: 11/12/2017 Status: F Source: [facility] 9:07 AM [facility] TYPE CODE TESTS RESULT OUT OF RANGE REFERENCE UNITS LAB GLUX 80-115 mg/dL High Glucose, 138 POC Performed By: #### GLUX #### Unless otherwise noted, all testing performed by [address] [place], [place] [address] CLIA: [id number] Staff Sonographer: Brandon Reina M.D. CHEST (ONE VIEW Observed: 11/12/2017 Status: F Source: [facility] ONLY) 8:11 AM [facility] Final Report Accession No: [id number] Performed: Nov 12 2017 8:11AM Examination: CHEST (ONE VIEW ONLY) EXAM: CHEST (ONE VIEW ONLY) CLINICAL HISTORY: 62-year-old male presenting with chest tube removal. TECHNIQUE: 1 view chest x-ray. COMPARISON: 11/12/2017. FINDINGS: Right jugular catheter tip terminates within the proximal right atrium. No pneumothorax. Bibasilar airspace opacities with small effusions. Stable enlargement of the heart. Postsurgical changes of median sternotomy, CABG and aortic valvuloplasty. IMPRESSION: 1. Right jugular catheter tip terminates at the level of the right atrium. 2. No pneumothorax. 3. Similar bibasilar airspace opacities with small effusions. 4. Stable mediastinal contours. Interpreting Physician: RACHEL LYNCH D.O. Trans: dw : cc: GLUCOSE, POC Collected: 11/12/2017 Status: F Source: [facility] 8:09 AM [facility] TYPE CODE TESTS RESULT OUT OF RANGE REFERENCE UNITS LAB GLUX 80-115 mg/dL High Glucose, 155 POC Performed By: #### GLUX #### Unless otherwise noted, all testing performed by [facility] [address] [facility]. [place], [place] [address] CLIA: [id number] Staff Sonographer: Brandon Reina M.D. GLUCOSE, POC Collected: 11/12/2017 Status: F Source: [facility] 6:43 AM [facility] TYPE CODE TESTS RESULT OUT OF RANGE REFERENCE UNITS LAB GLUX 80-115 mg/dL High Glucose, 167 POC Performed By: #### GLUX #### Unless otherwise noted, all testing performed by [address] [place], [place] [address] CLIA: [id number] Staff Sonographer: Brandon Reina M.D. CHEST (ONE VIEW Observed: 11/12/2017 Status: F Source: [facility] ONLY) 5:31 AM [facility] Final Report Accession No: [id number] Performed: Nov 12 2017 5:31AM Examination: CHEST (ONE VIEW ONLY) CHEST RADIOGRAPH CLINICAL HISTORY: Respiratory failure. COMPARISON: No relevant prior study available at time of interpretation. TECHNIQUE: CHEST (ONE VIEW ONLY) FINDINGS: Probable interval removal of the [place] catheter. The lungs are hypoinflated. No large pneumothorax or pleural effusion. Patchy opacity noted in the right greater than left lung bases. Enlarged cardiac silhouette. Unchanged osseous structures. Median sternotomy wires again noted. Cardiac valvular replacement again noted. Anterior fusion of the lower cervical spine again visualized. IMPRESSION: Probable interval removal of the [place] catheter versus repositioned [place] catheter which now now terminates within the IVC. Recommend clinical correlation. If there is concern for IVC placement, recommend further evaluation with abdominal radiograph. Bibasal airspace opacities may represent atelectasis versus developing pulmonary edema. Enlarged cardiac silhouette again noted. Interpreting Physician: LAURIE LEA M.D. Trans: [email or web address] : cc: GLUCOSE, POC Collected: 11/12/2017 Status: F Source: [facility] 5:12 AM [facility] TYPE CODE TESTS RESULT OUT OF RANGE REFERENCE UNITS LAB GLUX 80-115 mg/dL High Glucose, 133 POC Performed By: #### GLUX #### Unless otherwise noted, all testing performed by [address] [place] [address] CLIA: [id number] Staff Sonographer: Brandon Reina M.D. CBC W/O DIFF Collected: 11/12/2017 Status: F Source: [facility] 4:07 [facility] REPOSITORY TYPE CODE TESTS RESULT OUT OF REFERENCE UNITS RANGE LAB WBC 3.6-10.4 K/mcL WBC High 11.7 LAB RBC 4.0-5.5 M/mcL Low RBC 3.89 LAB HGB 12.9-16.9 g/dL Low Hemoglobin 11.0 LAB HCT 37.9-49.2 % Low Hematocrit 34.0 LAB MCV 82.8-99.3 FL MCV 87.4 LAB MCH 27.7-34.6 pg MCH 28.4 LAB MCHC 32.9-35.5 g/dL Low MCHC 32.4 LAB RDW 10-14.3 % RDW High 14.6 LAB PLT 139-354 K/mcL Low Platelet Count 94 LAB MPV 6.6-10.8 FL MPV 8.6 Result Comment: Smear reviewed to evaluate platelet count and morphology. Performed By: #### CBCWOD, CHEM8 #### Unless otherwise noted, all testing performed by [place] [address] CLIA: [id number] Staff Sonographer: Brandon Reina M.D. BASIC METABOLIC PANEL Collected: 11/12/2017 Status: F Source: [facility] 4:07 [facility] TYPE CODE TESTS RESULT OUT OF REFERENCE UNITS RANGE LAB GLU 70-99 mg/dL High Glucose 119 Result Comment: This test result might be falsely depressed or falsely elevated on samples drawn from patients taking Sulfasalazine and Sulfapyridine. Venipuncture should occur prior to taking either of these drugs. LAB BUN 8-25 mg/dL BUN 23 LAB CREA 0.80-1.30 mg/dL Creatinine High 1.38 LAB eGFR >60 ml/min/1.73s Low q.m eGFR,NonAfrican-Am erican 52 Result Comment: Non- GFR Calc eGFR is an estimated Glomerular Filtration Rate based on the value of the patient's serum creatinine. In outpatients, eGFR should be used as a helpful tool in screening for CKD. In inpatients or patients with acute renal failure, eGFR represents the GFR at the moment of the draw and should be used with caution. LAB eGFRB ml/min/1.73sq.m eGFR, -Canadian >=60 Result Comment: GFR Calc LAB CALCM 8.4-10.2 mg/dL Calcium Low 7.8 LAB NA 135-145 mmol/L Sodium 136 LAB K 3.5-5.1 mmol/L Potassium 4.4 LAB CL 98-108 mmol/L Chloride 105 LAB CO2 21-32 mmol/L CO2 23 Performed By: #### CBCWOD, CHEM8 #### Unless otherwise noted, all testing performed by [place] [address] CLIA: [id number] Staff Sonographer: Brandon Reina M.D. GLUCOSE, POC Collected: 11/12/2017 Status: F Source: [facility] 4:04 AM [facility] REPOS[facility] TYPE CODE TESTS RESULT OUT OF RANGE REFERENCE UNITS LAB GLUX 80-115 mg/dL High Glucose, 124 POC Performed By: #### GLUX #### Unless otherwise noted, all testing performed by [place] [address] CLIA: [id number] Staff Sonographer: Brandon Reina M.D. GLUCOSE, POC Collected: 11/12/2017 Status: F Source: [facility] 2:10 AM [facility]POS[facility] TYPE CODE TESTS RESULT OUT OF RANGE REFERENCE UNITS LAB GLUX 80-115 mg/dL High Glucose, 122 POC Performed By: #### GLUX #### Unless otherwise noted, all testing performed by [place] [address] CLIA: [id number] Staff Sonographer: Brandon Reina M.D. GLUCOSE, POC Collected: 11/12/2017 Status: F Source: [facility] 12:55 AM [facility] TYPE CODE TESTS RESULT OUT OF RANGE REFERENCE UNITS LAB GLUX 80-115 mg/dL High Glucose, 161 POC Performed By: #### GLUX #### Unless otherwise noted, all testing performed by [place] [address] CLIA: [id number] Staff Sonographer: Brandon Reina M.D. GLUCOSE, POC Collected: 11/11/2017 Status: F Source: [facility] 11:16 PM [facility] REPOSITORY TYPE CODE TESTS RESULT OUT OF RANGE REFERENCE UNITS LAB GLUX 80-115 mg/dL High Glucose, 152 POC Performed By: #### GLUX #### Unless otherwise noted, all testing performed by [place] [address] CLIA: [id number] Staff Sonographer: Brandon Reina M.D. GLUCOSE, POC Collected: 11/11/2017 Status: F Source: [facility] 10:04 PM [facility] REPOS[facility] TYPE CODE TESTS RESULT OUT OF RANGE REFERENCE UNITS LAB GLUX 80-115 mg/dL High Glucose, 123 POC Performed By: #### GLUX #### Unless otherwise noted, all testing performed by [place] [address] CLIA: [id number] Staff Sonographer: Brandon Reina M.D. GLUCOSE, POC Collected: 11/11/2017 Status: F Source: [facility] 9:08 PM [facility] REPOS[facility] TYPE CODE TESTS RESULT OUT OF RANGE REFERENCE UNITS LAB GLUX 80-115 mg/dL High Glucose, 143 POC Performed By: #### GLUX #### Unless otherwise noted, all testing performed by [place] [address] CLIA: [id number] Staff Sonographer: Brandon Reina M.D. GLUCOSE, POC Collected: 11/11/2017 Status: F Source: [facility] 8:15 PM [facility] REPOS[facility]ORY TYPE CODE TESTS RESULT OUT OF RANGE REFERENCE UNITS LAB GLUX 80-115 mg/dL High Glucose, 137 POC Performed By: #### GLUX #### Unless otherwise noted, all testing performed by [place] [address] CLIA: [id number] Staff Sonographer: Brandon Reina M.D. GLUCOSE, POC Collected: 11/11/2017 Status: F Source: [facility] 7:02 PM [facility] REPOS[facility] TYPE CODE TESTS RESULT OUT OF RANGE REFERENCE UNITS LAB GLUX 80-115 mg/dL High Glucose, 146 POC Performed By: #### GLUX #### Unless otherwise noted, all testing performed by [place] [address] CLIA: [id number] Staff Sonographer: Brandon Reina M.D. GLUCOSE, POC Collected: 11/11/2017 Status: F Source: [facility] 6:01 PM [facility]POS[facility] TYPE CODE TESTS RESULT OUT OF RANGE REFERENCE UNITS LAB GLUX 80-115 mg/dL High Glucose, 136 POC Performed By: #### GLUX #### Unless otherwise noted, all testing performed by [place] [address] CLIA: [id number] Staff Sonographer: Brandon Reina M.D. GLUCOSE, POC Collected: 11/11/2017 Status: F Source: [facility] 4:54 PM [facility] REPOS[facility] TYPE CODE TESTS RESULT OUT OF RANGE REFERENCE UNITS LAB GLUX 80-115 mg/dL High Glucose, 138 POC Performed By: #### GLUX #### Unless otherwise noted, all testing performed by [place] [address] CLIA: [id number] Staff Sonographer: Brandon Reina M.D. GLUCOSE, POC Collected: 11/11/2017 Status: F Source: [facility] 4:07 PM [facility] REPOS[facility] TYPE CODE TESTS RESULT OUT OF RANGE REFERENCE UNITS LAB GLUX 80-115 mg/dL High Glucose, 147 POC Performed By: #### GLUX #### Unless otherwise noted, all testing performed by [place] [address] CLIA: [id number] Staff Sonographer: Brandon Reina M.D. GLUCOSE, POC Collected: 11/11/2017 Status: F Source: [facility] 3:14 PM [facility] TYPE CODE TESTS RESULT OUT OF RANGE REFERENCE UNITS LAB GLUX 80-115 mg/dL High Glucose, 150 POC Performed By: #### GLUX #### Unless otherwise noted, all testing performed by [place] [address] CLIA: [id number] Staff Sonographer: Brandon Reina M.D. GLUCOSE, POC Collected: 11/11/2017 Status: F Source: [facility] 2:11 PM [facility] RE[facility] TYPE CODE TESTS RESULT OUT OF RANGE REFERENCE UNITS LAB GLUX 80-115 mg/dL High Glucose, 139 POC Performed By: #### GLUX #### Unless otherwise noted, all testing performed by [place] [address] CLIA: [id number] Staff Sonographer: Brandon Reina M.D. GLUCOSE, POC Collected: 11/11/2017 Status: F Source: [facility] 1:09 PM [facility] RE[facility] TYPE CODE TESTS RESULT OUT OF RANGE REFERENCE UNITS LAB GLUX 80-115 mg/dL High Glucose, 159 POC Performed By: #### GLUX #### Unless otherwise noted, all testing performed by [place] [address] CLIA: [id number] Staff Sonographer: Brandon Reina M.D. ACTIVATED CLOTTING Collected: 11/11/2017 Status: F Source: [facility] TIME 12:57 PM [facility] REPOSITORY TYPE CODE TESTS RESULT OUT OF RANGE REFERENCE UNITS LAB ACT Seconds Normal Activated 124 Clotting Time Result Comment: Testing performed during open heart surgery by Yara Torres Performed By: #### ACT #### Unless otherwise noted, all testing performed by [place] [address] CLIA: [id number] Staff Sonographer: Brandon Reina M.D. ACTIVATED CLOTTING Collected: 11/11/2017 Status: F Source: [facility] TIME 12:57 PM [facility] REPOSITORY TYPE CODE TESTS RESULT OUT OF RANGE REFERENCE UNITS LAB ACT Seconds Normal Activated 117 Clotting Time Result Comment: Testing performed during open heart surgery by Yara Torres Performed By: #### ACT #### Unless otherwise noted, all testing performed by [place] [address] CLIA: [id number] Staff Sonographer: Brandon Reina M.D. GLUCOSE, POC Collected: 11/11/2017 Status: F Source: [facility] 12:31 PM [facility] REPOSITORY TYPE CODE TESTS RESULT OUT OF RANGE REFERENCE UNITS LAB GLUX 80-115 mg/dL High Glucose, 146 POC Performed By: #### GLUX #### Unless otherwise noted, all testing performed by [place] [address] CLIA: [id number] Staff Sonographer: Brandon Reina M.D. GLUCOSE, POC Collected: 11/11/2017 Status: F Source: [facility] 10:56 AM [facility] REPOSITORY TYPE CODE TESTS RESULT OUT OF RANGE REFERENCE UNITS LAB GLUX 80-115 mg/dL High Glucose, 150 POC Performed By: #### GLUX #### Unless otherwise noted, all testing performed by [place] [address] CLIA: [id number] Staff Sonographer: Brandon Reina M.D. GLUCOSE, POC Collected: 11/11/2017 Status: F Source: [facility] 10:10 AM [facility] REPOSITORY TYPE CODE TESTS RESULT OUT OF RANGE REFERENCE UNITS LAB GLUX 80-115 mg/dL High Glucose, 135 POC Performed By: #### GLUX #### Unless otherwise noted, all testing performed by [facility] [address] [facility]. [place], [place] [address] CLIA: [id number] Staff Sonographer: Brandon Reina M.D. CONSULTATION Observed: 11/11/2017 Status: F Source: [facility] 9:12 AM [facility] REPOSITORY [facility] [address] [facility] [place] [address] NAME RIGOBERTO NOLAND [facility] [id number] 1955 DATE 11/11/2017 CONSULTATION SCIENCE INSTRUCTOR JSUTINE CABRERA MD REFERRING PHYSICIAN: Carolyn Grey MD REASON FOR CONSULTATION Type 2 diabetes mellitus management. HISTORY OF PRESENT ILLNESS The patient is a 62-year-old male with a history of coronary artery disease, aortic valve disease, type 2 diabetes mellitus, who is status post coronary artery bypass graft x3, and aortic valve replacement with 23 mm Neli Mcbride valve on November 10, 2017. The patient had been experiencing dyspnea on exertion and chest pain with exertion. He had a cardiac catheterization which revealed severe coronary artery disease and aortic valve disease and thus was referred for open heart surgery. The patient also has a history of type 2 diabetes mellitus for approximately 10 years. Preoperatively, his hemoglobin A1c was elevated at 8.9% and he had a random blood glucose which was 489. He was referred to Endocrinology preoperatively for evaluation and was started on insulin during that appointment. He was started on 70/30 insulin and his oral hypoglycemic agents were continued. His glucose control did improve preoperatively with blood sugars ranging from 120-160 range by report. ALLERGIES Demerol and shellfish. MEDICATIONS At the time of admission: Humulin 70/30, 15 units every morning pre breakfast, 12 units every evening pre supper. Glyburide 5 mg daily, Coreg 25 mg twice a day, lisinopril 10 mg daily, metformin 500 mg twice a day, pravastatin 40 mg nightly, spironolactone 25 mg daily. Actos 15 mg daily had also been previously listed. PAST MEDICAL HISTORY 1. Coronary artery disease. 2. Aortic valve stenosis. 3. Cardiomyopathy. 4. Congestive heart failure. 5. History of non-Hodgkin's lymphoma treated with radiation and chemotherapy. 6. Type 2 diabetes mellitus. 7. Hyperlipidemia. 8. Hypertension. PAST SURGICAL HISTORY 1. Status post cardiac catheterization. 2. Cervical spine surgery. 3. Chest wall biopsy. 4. Coronary artery bypass graft x3 and aortic valve replacement on November 10, 2017. FAMILY HISTORY Positive for the patient's father having had a heart attack. SOCIAL HISTORY The patient is single. He does not smoke tobacco or drink alcohol. REVIEW OF SYSTEMS Ten systems reviewed. Currently, the patient complains of fatigue. He states he has not slept well for the past 3 weeks. He has surgical chest discomfort and shortness of breath. He has left leg discomfort, which is surgical. He has decreased appetite but no nausea, vomiting, diarrhea, constipation, or abdominal pain. No focal neurologic symptoms. PHYSICAL EXAM Vital Signs: Temperature 98.9, pulse 90, respiratory rate 16, blood pressure 124/68. HEENT: PERRL. EOMI. Sclerae anicteric. Oropharynx within normal limits. Neck: Central line in place. Cardiac: Regular rate and rhythm. Pulmonary: Decreased breath sounds with chest tubes in place. Abdomen: Hypoactive bowel sounds. Soft, nontender. Extremities: Left leg with Oz wrap in place. Right leg without edema or active lesions of foot noted. Neurologic: Alert and oriented x3. Cranial nerves 2-12 intact. Motor and sensory grossly nonfocal. LABS Glucose 130, BUN 23, creatinine 1.76, sodium 139, potassium 4.6, chloride 109, CO2 23, albumin 3.8, magnesium 1.6. WBC 10.2, hemoglobin 10.0, hematocrit 30.4, platelet count 97,000. Blood glucose 129-162 on IV insulin. Hemoglobin A1c 8.9% on October 21, 2017. ASSESSMENT AND PLAN The patient is a 62-year-old male with a history of type 2 diabetes mellitus for approximately 10 years, treated with glyburide, metformin, and Actos preoperatively. Insulin Humulin 70/30 was added shortly before his surgery with improvement in his glucose control. PLAN At this time will be to continue IV insulin for the next 24 hours. He will be started on a 4 times a day insulin regimen tomorrow. His metformin and Actos may not be able to be restarted due to his elevated creatinine and congestive heart failure. MD April HO 11/11/2017 09:12 [id number] T 11/11/2017 09:28 CAD/MODL Electronically Signed By Justine Cabrera M.D. on 15 Nov 2017 10:45:54 GMT GLUCOSE, POC Collected: 11/11/2017 Status: F Source: [facility] 8:47 AM [facility] REPOSITORY TYPE CODE TESTS RESULT OUT OF RANGE REFERENCE UNITS LAB GLUX 80-115 mg/dL Normal Glucose, 111 POC Performed By: #### GLUX #### Unless otherwise noted, all testing performed by [place] [address] CLIA: [id number] Staff Sonographer: Brandon Reina M.D. ACTIVATED CLOTTING Collected: 11/11/2017 Status: F Source: [facility] TIME 8:30 AM [facility] REPOSITORY TYPE CODE TESTS RESULT OUT OF RANGE REFERENCE UNITS LAB ACT Seconds Normal Activated 284 Clotting Time Result Comment: Testing performed during open heart surgery by Yara Torres Performed By: #### ACT #### Unless otherwise noted, all testing performed by [place] [address] CLIA: [id number] Staff Sonographer: Brandon Reina M.D. ACTIVATED CLOTTING Collected: 11/11/2017 Status: F Source: [facility] TIME 8:14 AM [facility] REPOSITORY TYPE CODE TESTS RESULT OUT OF RANGE REFERENCE UNITS LAB ACT Seconds Normal Activated 239 Clotting Time Result Comment: Testing performed during open heart surgery by Yara So Performed By: #### ACT #### Unless otherwise noted, all testing performed by [place] [address] CLIA: [id number] Staff Sonographer: Brandon Reina M.D. GLUCOSE, POC Collected: 11/11/2017 Status: F Source: [facility] 7:05 AM [facility] REPOSIT[facility] TYPE CODE TESTS RESULT OUT OF RANGE REFERENCE UNITS LAB GLUX 80-115 mg/dL High Glucose, 178 POC Performed By: #### GLUX #### Unless otherwise noted, all testing performed by [facility] [address] [place], [place] [address] CLIA: [id number] Staff Sonographer: Brandon Reina M.D. GLUCOSE, POC Collected: 11/11/2017 Status: F Source: [facility] 5:59 AM [facility] REPOS[facility] TYPE CODE TESTS RESULT OUT OF RANGE REFERENCE UNITS LAB GLUX 80-115 mg/dL High Glucose, 162 POC Performed By: #### GLUX #### Unless otherwise noted, all testing performed by [facility] [address] [place], [place] [address] CLIA: [id number] Staff Sonographer: Brandon Reina M.D. CHEST (ONE VIEW Observed: 11/11/2017 Status: F Source: [facility] ONLY) 5:37 AM [facility] REPOSITORY Final Report Accession No: [id number] Performed: Nov 11 2017 5:37AM Examination: CHEST (ONE VIEW ONLY) CHEST RADIOGRAPH CLINICAL HISTORY: Respiratory failure. COMPARISON: 11/10/2017. TECHNIQUE: CHEST (ONE VIEW ONLY) FINDINGS: Interval extubation. [place] catheter in stable position. No additional invasive hardware noted. Interval removal of the NG tube. Lungs are hypoinflated. No large pneumothorax or pleural effusion. Patchy opacity noted at the lung bases. Enlarged cardiac silhouette and interstitial prominence noted in the perihilar regions. Prior CABG again noted. Anterior fusion of the lower cervical spine partially imaged. IMPRESSION: Enlarged cardiac silhouette and vascular congestion. Bibasal patchy airspace opacity likely represent atelectasis. Superimposed infection is best excluded clinically. [place] catheter in stable position. Interval extubation and NG tube removal. Interpreting Physician: LAURIE LEA M.D. Trans: [email or web address] : cc: GLUCOSE, POC Collected: 11/11/2017 Status: F Source: [facility] 5:28 AM [facility] TYPE CODE TESTS RESULT OUT OF RANGE REFERENCE UNITS LAB GLUX 80-115 mg/dL High Glucose, 157 POC Performed By: #### GLUX #### Unless otherwise noted, all testing performed by [place] [address] CLIA: [id number] Staff Sonographer: Brandon Reina M.D. ISTAT POST OPEN Collected: 11/11/2017 Status: F Source: [facility] HEART PANEL 4:13 AM [facility] REPOSITORY TYPE CODE TESTS RESULT OUT OF REFERENCE UNITS RANGE LAB GLU 70-99 mg/dL High Glucose 130 LAB NA 136-141 mmol/L Sodium 139 LAB K 3.5-4.9 mmol/L Potassium 4.6 LAB CAION 1.12-1.32 mmol/L Ionized Calcm 1.14 Performed By: #### IPSOH #### Unless otherwise noted, all testing performed by [place] [address] CLIA: [id number] Staff Sonographer: Brandon Reina M.D. OPEN HEART PANEL, Collected: 11/11/2017 Status: F Source: [facility] HEM 4:03 AM [facility] REPOSITORY TYPE CODE TESTS RESULT OUT OF RANGE REFERENCE UNITS LAB WBC 3.6-10.4 K/mcL WBC Normal 10.2 LAB HGB 12.9-16.9 g/dL Low Hemoglobin 10.0 LAB HCT 37.9-49.2 % Low Hematocrit 30.4 LAB PLT 139-354 K/mcL Low Platelet Count 97 Performed By: #### c OHP, h OHP, ALB #### Unless otherwise noted, all testing performed by [place] [address] CLIA: [id number] Staff Sonographer: Brandon Reina M.D. OPEN HEART PANEL,CHEM Collected: 11/11/2017 Status: F Source: [facility] 4:03 AM [facility] REPOS[facility] TYPE CODE TESTS RESULT OUT OF RANGE REFERENCE UNITS LAB BUN 8-25 mg/dL BUN Normal 23 LAB CREA 0.80-1.30 mg/dL High Creatinine 1.76 LAB eGFR >60 ml/min/1.7 Low 3sq.m eGFR,NonAfrican- 39 Canadian Result Comment: Non- GFR Calc eGFR is an estimated Glomerular Filtration Rate based on the value of the patient's serum creatinine. In outpatients, eGFR should be used as a helpful tool in screening for CKD. In inpatients or patients with acute renal failure, eGFR represents the GFR at the moment of the draw and should be used with caution. LAB eGFRB >60 ml/min/1.73sq.m eGFR, -Canadian Low 48 Result Comment: GFR Calc LAB CL 98-108 mmol/L High Chloride 109 LAB CO2 21-32 mmol/L Normal CO2 23 LAB MG 1.6-2.4 mg/dL Normal Magnesium 1.6 Performed By: #### c OHP, h OHP, ALB #### Unless otherwise noted, all testing performed by [place] [address] CLIA: [id number] Staff Sonographer: Brandon Reina M.D. ALBUMIN Collected: 11/11/2017 Status: F Source: [facility] 4:03 AM [facility] REPOSIT[facility] TYPE CODE TESTS RESULT OUT OF RANGE REFERENCE UNITS LAB ALB 3.2-5.2 g/dL Normal Albumin 3.8 Performed By: #### c OHP, h OHP, ALB #### Unless otherwise noted, all testing performed by [place] [address] CLIA: [id number] Staff Sonographer: Brandon Reina M.D. GLUCOSE, POC Collected: 11/11/2017 Status: F Source: [facility] 3:59 AM [facility] REPOS[facility] TYPE CODE TESTS RESULT OUT OF RANGE REFERENCE UNITS LAB GLUX 80-115 mg/dL High Glucose, 129 POC Performed By: #### GLUX #### Unless otherwise noted, all testing performed by [place] [address] CLIA: [id number] Staff Sonographer: Brandon Reina M.D. GLUCOSE, POC Collected: 11/11/2017 Status: F Source: [facility] 3:12 AM [facility] REPOS[facility] TYPE CODE TESTS RESULT OUT OF RANGE REFERENCE UNITS LAB GLUX 80-115 mg/dL High Glucose, 137 POC Performed By: #### GLUX #### Unless otherwise noted, all testing performed by [address] [address] CLIA: [id number] Staff Sonographer: Brandon Reina M.D. GLUCOSE, POC Collected: 11/11/2017 Status: F Source: [facility] 1:02 AM [facility] REPOS[facility] TYPE CODE TESTS RESULT OUT OF RANGE REFERENCE UNITS LAB GLUX 80-115 mg/dL High Glucose, 153 POC Performed By: #### GLUX #### Unless otherwise noted, all testing performed by [place] [id number] CLIA: [id number] Staff Sonographer: Brandon Reina M.D. GLUCOSE, POC Collected: 11/11/2017 Status: F Source: [facility] 12:04 AM [facility] REPOS[facility] TYPE CODE TESTS RESULT OUT OF RANGE REFERENCE UNITS LAB GLUX 80-115 mg/dL High Glucose, 144 POC Performed By: #### GLUX #### Unless otherwise noted, all testing performed by [address] [address] CLIA: [id number] Staff Sonographer: Brandon Reina M.D. GLUCOSE, POC Collected: 11/10/2017 Status: F Source: [facility] 10:55 PM [facility] REPOS[facility] TYPE CODE TESTS RESULT OUT OF RANGE REFERENCE UNITS LAB GLUX 80-115 mg/dL High Glucose, 133 POC Performed By: #### GLUX #### Unless otherwise noted, all testing performed by [address] [address] CLIA: [id number] Staff Sonographer: Brandon Reina M.D. GLUCOSE, POC Collected: 11/10/2017 Status: F Source: [facility] 10:10 PM [facility] REPOS[facility] TYPE CODE TESTS RESULT OUT OF RANGE REFERENCE UNITS LAB GLUX 80-115 mg/dL High Glucose, 155 POC Performed By: #### GLUX #### Unless otherwise noted, all testing performed by [address] [address] CLIA: [id number] Staff Sonographer: Brandon Reina M.D. GLUCOSE, POC Collected: 11/10/2017 Status: F Source: [facility] 9:06 PM [facility] REPOS[facility] TYPE CODE TESTS RESULT OUT OF RANGE REFERENCE UNITS LAB GLUX 80-115 mg/dL High Glucose, 141 POC Performed By: #### GLUX #### Unless otherwise noted, all testing performed by [address] [address] CLIA: [id number] Staff Sonographer: Brandon Reina M.D. GLUCOSE, POC Collected: 11/10/2017 Status: F Source: [facility] 7:52 PM [facility] REPOS[facility] TYPE CODE TESTS RESULT OUT OF RANGE REFERENCE UNITS LAB GLUX 80-115 mg/dL High Glucose, 135 POC Performed By: #### GLUX #### Unless otherwise noted, all testing performed by [address] [address] CLIA: [id number] Staff Sonographer: Brandon Reina M.D. ISTAT POST OPEN Collected: 11/10/2017 Status: F Source: [facility] HEART PANEL 7:18 PM [facility] REPOSIT[facility] TYPE CODE TESTS RESULT OUT OF REFERENCE UNITS RANGE LAB GLU 70-99 mg/dL High Glucose 117 LAB NA 136-141 mmol/L Sodium 140 LAB K 3.5-4.9 mmol/L Potassium 4.5 LAB CAION 1.12-1.32 mmol/L Ionized Calcm 1.17 Performed By: #### IPSOH #### Unless otherwise noted, all testing performed by [address] [place], [place] [address] CLIA: [id number] Staff Sonographer: Brandon Reina M.D. CBC W/O DIFF Collected: 11/10/2017 Status: F Source: [facility] 7:00 [facility] REPOSITORY TYPE CODE TESTS RESULT OUT OF RANGE REFERENCE UNITS LAB WBC 3.6-10.4 K/mcL WBC Normal 8.9 LAB RBC 4.0-5.5 M/mcL Low RBC 3.59 LAB HGB 12.9-16.9 g/dL Low Hemoglobin 10.4 LAB HCT 37.9-49.2 % Low Hematocrit 30.7 LAB MCV 82.8-99.3 FL MCV Normal 85.4 LAB MCH 27.7-34.6 pg MCH Normal 29.0 LAB MCHC 32.9-35.5 g/dL MCHC Normal 33.9 LAB RDW 10-14.3 % RDW Normal 13.9 LAB PLT 139-354 K/mcL Low Platelet Count 89 Result Comment: Smear reviewed to evaluate platelet count and morphology. LAB MPV 6.6-10.8 FL Normal MPV 7.5 Performed By: #### PT, CBCWOD, c OHP, PTT, FIB #### Unless otherwise noted, all testing performed by [address] [address] CLIA: [id number] Staff Sonographer: Brandon Reina M.D. PROTIME Collected: 11/10/2017 Status: F Source: [facility] 7:00 [facility] TYPE CODE TESTS RESULT OUT OF RANGE REFERENCE UNITS LAB PT. 11.8-14.3 Seconds High Protime 16.5 LAB INR Normal INR 1.36 Result Comment: The [employer] recommended therapeutic range for Warfarin (Coumadin) therapy goals: PROPHYLAXIS/TREATMENT of: INR Venous Thrombosis, Pulmonary Embolism 2.0-3.0 Prevention of VTE (Orthopedic Surgery) 2.0-3.0 Atrial Fibrillation 2.0-3.0 Myocardial Infarction 2.0-3.0 Mechanical Prosthetic Heart Valves (Aortic position) 2.0-3.0 Mechanical Prosthetic Heart Valves (Mitral Position) 2.5-3.5 [employer] evidence-based clinical practice guidelines. CHEST. 2012 (9th ed) Performed By: #### PT, CBCWOD, c OHP, PTT, FIB #### Unless otherwise noted, all testing performed by [place] [address] CLIA: [id number] Staff Sonographer: Brandon Reina M.D. PARTIAL THROMBOPLASTIN Collected: 11/10/2017 Status: F Source: [facility] TIME 7:00 PM [facility] REPOSITORY TYPE CODE TESTS RESULT OUT OF REFERENCE UNITS RANGE LAB PTT 23.0-34.0 Seconds Partial Normal Thromboplastin Time 32 Result Comment: Suggested therapeutic range for PTT is 68-104 sec. Performed By: #### PT, CBCWOD, c OHP, PTT, FIB #### Unless otherwise noted, all testing performed by [place] [address] CLIA: [id number] Staff Sonographer: Brandon Reina M.D. FIBRINOGEN Collected: 11/10/2017 Status: F Source: [facility] 7:00 [facility] REPOSITORY TYPE CODE TESTS RESULT OUT OF RANGE REFERENCE UNITS LAB FIB 224-483 mg/dL Normal Fibrinogen 331 Performed By: #### PT, CBCWOD, c OHP, PTT, FIB #### Unless otherwise noted, all testing performed by [place] [address] CLIA: [id number] Staff Sonographer: Brandon Reina M.D. OPEN HEART PANEL,CHEM Collected: 11/10/2017 Status: F Source: [facility] 7:00 PM [facility] REPOS[facility] TYPE CODE TESTS RESULT OUT OF RANGE REFERENCE UNITS LAB BUN 8-25 mg/dL BUN Normal 21 LAB CREA 0.80-1.30 mg/dL High Creatinine 1.57 LAB eGFR >60 ml/min/1.7 Low 3sq.m eGFR,NonAfrican- 45 [place] Result Comment: Non- GFR Calc eGFR is an estimated Glomerular Filtration Rate based on the value of the patient's serum creatinine. In outpatients, eGFR should be used as a helpful tool in screening for CKD. In inpatients or patients with acute renal failure, eGFR represents the GFR at the moment of the draw and should be used with caution. LAB eGFRB >60 ml/min/1.73sq.m eGFR, -Canadian Low 54 Result Comment: GFR Calc LAB CL 98-108 mmol/L High Chloride 110 LAB CO2 21-32 mmol/L Normal CO2 23 LAB MG 1.6-2.4 mg/dL Normal Magnesium 1.7 Performed By: #### PT, CBCWOD, c OHP, PTT, FIB #### Unless otherwise noted, all testing performed by [place] [address] CLIA: [id number] Staff Sonographer: Brandon Reina M.D. GLUCOSE, POC Collected: 11/10/2017 Status: F Source: [facility] 6:57 PM [facility] REPOSIT[facility] TYPE CODE TESTS RESULT OUT OF RANGE REFERENCE UNITS LAB GLUX 80-115 mg/dL High Glucose, 121 POC Performed By: #### GLUX #### Unless otherwise noted, all testing performed by [place] [address] CLIA: [id number] Staff Sonographer: Brandon Reina M.D. BLOOD GAS, ARTERIAL Collected: 11/10/2017 Status: F Source: [facility] 5:59 PM [facility] REPOS[facility] TYPE CODE TESTS RESULT OUT OF REFERENCE UNITS RANGE LAB ipH 7.350-7.450 pH Normal 7.359 LAB iPCO2 35-45 mm Hg PCO2 Normal 38.4 LAB iPO2 80-100 mm Hg PO2 High 117 LAB iHCO3 22-26 mmol/L HCO3 Low 21.6 LAB Darryl -2-2 mmol/L Base Excess Low -3.5 LAB O2HB 92-99 % O2 Hemoglobin Normal 96.4 LAB AAGRAD mm Hg [id number] Normal 111.5 LAB AARATIO % Aa Ratio Normal 51.1 LAB HeyH2Rwp 92-99 % Hemoglobin O2 Sat. Normal 98.9 LAB COHB % Carboxyhemoglobin Normal < 1.4 Result Comment: notified at Value below reportable range < 1.4 [place] Non-Smoker <1.5% of total Hgb Smoker 1.5 - 5.0 % of total Hgb Heavy Smoker 5.0 - 9.0 % of total Hgb LAB METHB < 2.0 % Normal Methemoglobin 1.5 LAB HHB 0.0-5.0 % Normal DeOxyhemoglobin (HHB) < 2.4 Result Comment: notified at Value below reportable range < 2.4 LAB pHt 7.350-7.450 pH Normal (temp conv.) 7.359 LAB pCO2t 35.0-45.0 mm Hg pCO2 Normal (temp conv.) 38.4 LAB pO2t 80-100 mm Hg pO2 High (temp conv.) 117 LAB DRAWNBY Drawn Normal By (Bld Gas) F LAB SITEABG Site Normal (Bld Gas) EFRA LAB THB 13.5-17.5 g/dL Low Hemoglobin (Bld 10.1 Gas) LAB HCTABG 41-53 % Low Hematocrit (Bld 31.0 Gas) LAB [id number] O2 Normal Device Ventilator LAB PEEP PEEP 5 Normal LAB SPONTRAT 17 Normal Spontaneous Rate LAB TIDALVOL Tidal Normal Volume 0.52 LAB FIO2 21-100 % FIO2 Normal 40.0 LAB PSV PSV 5 Normal LAB VENTMODE Vent Normal Mode CPAP LAB TEMPABG 36.0-38.0 Celsius Normal Temperature 37.0 (Bld Gas) LAB ALLENS Normal Allens Test N/A LAB BGINST Blood Normal Gas Instrument ;ICU Performed By: #### ABG #### Unless otherwise noted, all testing performed by [address] [address] CLIA: [id number] Staff Sonographer: Brandon Reina M.D. GLUCOSE, POC Collected: 11/10/2017 Status: F Source: [facility] 5:56 PM [facility] REPOS[facility] TYPE CODE TESTS RESULT OUT OF RANGE REFERENCE UNITS LAB GLUX 80-115 mg/dL High Glucose, 143 POC Performed By: #### GLUX #### Unless otherwise noted, all testing performed by [address] [place] [address] CLIA: [id number] Staff Sonographer: Brandon Reina M.D. GLUCOSE, POC Collected: 11/10/2017 Status: F Source: [facility] 5:07 PM [facility] RE[facility] TYPE CODE TESTS RESULT OUT OF RANGE REFERENCE UNITS LAB GLUX 80-115 mg/dL High Glucose, 188 POC Performed By: #### GLUX #### Unless otherwise noted, all testing performed by [facility] [address] [place], [place] [address] CLIA: [id number] Staff Sonographer: Brandon Reina M.D. BLOOD GAS, ARTERIAL Collected: 11/10/2017 Status: F Source: [facility] 4:15 PM [facility] REPOS[facility] TYPE CODE TESTS RESULT OUT OF RANGE REFERENCE UNITS LAB ipH 7.350-7.450 Normal pH 7.391 LAB iPCO2 35-45 mm Hg Low PCO2 33.2 Result Comment: Value below reference range LAB iPO2 80-100 mm Hg High PO2 153 LAB iHCO3 22-26 mmol/L Low HCO3 20.1 LAB Darryl -2-2 mmol/L Low Base Excess -4.2 LAB O2HB 92-99 % Normal O2 Hemoglobin 97.1 LAB AAGRAD mm Hg Normal [id number] 80.7 LAB AARATIO % Normal Aa Ratio 65.5 LAB UusF3Xje 92-99 % High Hemoglobin O2 Sat. 99.6 Result Comment: Value above reference range LAB COHB % Normal Carboxyhemoglobin < 1.4 Result Comment: notified at Value below reportable range < 1.4 [place]urban Non-Smoker <1.5% of total Hgb Smoker 1.5 - 5.0 % of total Hgb Heavy Smoker 5.0 - 9.0 % of total Hgb LAB METHB < 2.0 % Normal Methemoglobin 1.5 LAB HHB 0.0-5.0 % Normal DeOxyhemoglobin (HHB) < 2.4 Result Comment: notified at Value below reportable range < 2.4 LAB pHt 7.350-7.450 pH Normal (temp conv.) 7.391 LAB pCO2t 35.0-45.0 mm Hg pCO2 Low (temp conv.) 33.2 LAB pO2t 80-100 mm Hg pO2 High (temp conv.) 153 LAB DRAWNBY Drawn Normal By (Bld Gas) RMF LAB SITEABG Site Normal (Bld Gas) EFRA LAB THB 13.5-17.5 g/dL Low Hemoglobin (Bld 10.2 Gas) LAB HCTABG 41-53 % Low Hematocrit (Bld 31.3 Gas) LAB [id number] O2 Normal Device Ventilator LAB PEEP PEEP 10 Normal LAB VENTRATE Vent 12 Normal Rate LAB SPONTRAT 2 Normal Spontaneous Rate LAB RESPRATE 1 Normal Respiratory Rate (Total) LAB TIDALVOL Tidal Normal Volume 0.9 LAB FIO2 21-100 % FIO2 Normal 40.0 LAB PSV PSV 5 Normal LAB VENTMODE Vent Normal Mode SIMV LAB TEMPABG 36.0-38.0 Celsius Normal Temperature 37.0 (Bld Gas) LAB ALLENS Normal Allens Test N/A LAB BGINST Blood Normal Gas Instrument ;ICU Performed By: #### ABG #### Unless otherwise noted, all testing performed by [place] [address] CLIA: [id number] Staff Sonographer: Brandon Reina M.D. GLUCOSE, POC Collected: 11/10/2017 Status: F Source: [facility] 3:55 PM [facility] REPOS[facility] TYPE CODE TESTS RESULT OUT OF RANGE REFERENCE UNITS LAB GLUX 80-115 mg/dL High Glucose, 141 POC Performed By: #### GLUX #### Unless otherwise noted, all testing performed by [place] [address] CLIA: [id number] Staff Sonographer: Brandon Reina M.D. GLUCOSE, POC Collected: 11/10/2017 Status: F Source: [facility] 3:18 PM [facility] TYPE CODE TESTS RESULT OUT OF RANGE REFERENCE UNITS LAB GLUX 80-115 mg/dL High Glucose, 174 POC Performed By: #### GLUX #### Unless otherwise noted, all testing performed by [address], [place] [address] CLIA: [id number] Staff Sonographer: Brandon Reina M.D. ISTAT POST OPEN Collected: 11/10/2017 Status: F Source: [facility] HEART PANEL 2:00 PM [facility] REPOSIT[facility] TYPE CODE TESTS RESULT OUT OF REFERENCE UNITS RANGE LAB GLU 70-99 mg/dL High Glucose 169 LAB NA 136-141 mmol/L Sodium 139 LAB K 3.5-4.9 mmol/L Potassium 4.4 LAB CAION 1.12-1.32 mmol/L Ionized Calcm 1.15 Performed By: #### IPSOH #### Unless otherwise noted, all testing performed by [place] [address] CLIA: [id number] Staff Sonographer: Brandon Reina M.D. BLOOD GAS, ARTERIAL Collected: 11/10/2017 Status: F Source: [facility] 1:51 PM [facility]POS[facility] TYPE CODE TESTS RESULT OUT OF RANGE REFERENCE UNITS LAB ipH 7.350-7.450 Normal pH 7.427 LAB iPCO2 35-45 mm Hg Low PCO2 33.5 Result Comment: Value below reference range LAB iPO2 80-100 mm Hg High PO2 216 LAB iHCO3 22-26 mmol/L Normal HCO3 22.0 LAB Darryl -2-2 mmol/L Normal Base Excess -1.8 LAB O2HB 92-99 % Normal O2 Hemoglobin 97.5 LAB AAGRAD mm Hg Normal TyF3sojwkafn 223.2 LAB AARATIO % Normal Aa Ratio 49.1 LAB TiwW3Gtm 92-99 % High Hemoglobin O2 Sat. 100.0 Result Comment: Value above reference range LAB COHB % Normal Carboxyhemoglobin < 1.4 Result Comment: notified at Value below reportable range < 1.4 [place] Non-Smoker <1.5% of total Hgb Smoker 1.5 - 5.0 % of total Hgb Heavy Smoker 5.0 - 9.0 % of total Hgb LAB METHB < 2.0 % Normal Methemoglobin 1.5 LAB HHB 0.0-5.0 % Normal DeOxyhemoglobin (HHB) < 2.4 Result Comment: notified at Value below reportable range < 2.4 LAB pHt 7.350-7.450 pH Normal (temp conv.) 7.427 LAB pCO2t 35.0-45.0 mm Hg pCO2 Low (temp conv.) 33.5 LAB pO2t 80-100 mm Hg pO2 High (temp conv.) 216 LAB THB 13.5-17.5 g/dL Low Hemoglobin (Bld 11.2 Gas) LAB HCTABG 41-53 % Low Hematocrit (Bld 34.4 Gas) LAB FIO2 21-100 % FIO2 Normal 70.0 LAB TEMPABG 36.0-38.0 Celsius Normal Temperature 37.0 (Bld Gas) LAB BGINST Blood Normal Gas Instrument ;ICU LAB DRAWNBY Drawn Normal By (Bld Gas) [employer] SITEABG Site Normal (Bld Gas) A-Line LAB [id number] O2 Normal Device Ventilator LAB PEEP PEEP 10 Normal LAB VENTRATE Vent 12 Normal Rate LAB TIDALVOL Tidal Normal Volume 700 LAB PSV PSV 5 Normal LAB VENTMODE Vent Normal Mode SIMV Performed By: #### ABG #### Unless otherwise noted, all testing performed by [facility] [address] [place], [place] [address] CLIA: [id number] Staff Sonographer: Brandon Reina M.D. CBC W/O DIFF Collected: 11/10/2017 Status: F Source: [facility] 1:45 PM [facility] TYPE CODE TESTS RESULT OUT OF RANGE REFERENCE UNITS LAB WBC 3.6-10.4 K/mcL High WBC 17.5 LAB RBC 4.0-5.5 M/mcL Low RBC 3.85 LAB HGB 12.9-16.9 g/dL Low Hemoglobin 11.0 LAB HCT 37.9-49.2 % Low Hematocrit 33.1 LAB MCV 82.8-99.3 FL MCV Normal 85.9 LAB MCH 27.7-34.6 pg MCH Normal 28.5 LAB MCHC 32.9-35.5 g/dL MCHC Normal 33.2 LAB RDW 10-14.3 % RDW Normal 13.9 LAB PLT 139-354 K/mcL Low Platelet Count 132 LAB MPV 6.6-10.8 FL MPV Normal 7.6 Performed By: #### c OHP, CBCWOD, FIB, PT, PTT #### Unless otherwise noted, all testing performed by [place] [address] CLIA: [id number] Staff Sonographer: Brandon Reina M.D. OPEN HEART PANEL,CHEM Collected: 11/10/2017 Status: F Source: [facility] 1:45 PM [facility] TYPE CODE TESTS RESULT OUT OF RANGE REFERENCE UNITS LAB BUN 8-25 mg/dL BUN Normal 21 LAB CREA 0.80-1.30 mg/dL High Creatinine 1.33 LAB eGFR >60 ml/min/1.7 Low 3sq.m eGFR,NonAfrican- 54 [place] Result Comment: Non- GFR Calc eGFR is an estimated Glomerular Filtration Rate based on the value of the patient's serum creatinine. In outpatients, eGFR should be used as a helpful tool in screening for CKD. In inpatients or patients with acute renal failure, eGFR represents the GFR at the moment of the draw and should be used with caution. LAB eGFRB ml/min/1.73sq.m eGFR, Normal -Canadian >=60 Result Comment: GFR Calc LAB CL 98-108 mmol/L High Chloride 110 LAB CO2 21-32 mmol/L Normal CO2 23 LAB MG 1.6-2.4 mg/dL Normal Magnesium 2.0 Performed By: #### c OHP, CBCWOD, FIB, PT, PTT #### Unless otherwise noted, all testing performed by [place] [address] CLIA: [id number] Staff Sonographer: Brandon Reina M.D. FIBRINOGEN Collected: 11/10/2017 Status: F Source: [facility] 1:45 PM [facility] TYPE CODE TESTS RESULT OUT OF RANGE REFERENCE UNITS LAB FIB 224-483 mg/dL Normal Fibrinogen 319 Performed By: #### c OHP, CBCWOD, FIB, PT, PTT #### Unless otherwise noted, all testing performed by [place] [address] CLIA: [id number] Staff Sonographer: Brandon Reina M.D. PROTIME Collected: 11/10/2017 Status: F Source: [facility] 1:45 PM [facility] TYPE CODE TESTS RESULT OUT OF RANGE REFERENCE UNITS LAB PT. 11.8-14.3 Seconds High Protime 18.6 LAB INR Normal INR 1.59 Result Comment: The [employer] recommended therapeutic range for Warfarin (Coumadin) therapy goals: PROPHYLAXIS/TREATMENT of: INR Venous Thrombosis, Pulmonary Embolism 2.0-3.0 Prevention of VTE (Orthopedic Surgery) 2.0-3.0 Atrial Fibrillation 2.0-3.0 Myocardial Infarction 2.0-3.0 Mechanical Prosthetic Heart Valves (Aortic position) 2.0-3.0 Mechanical Prosthetic Heart Valves (Mitral Position) 2.5-3.5 [employer] evidence-based clinical practice guidelines. CHEST. 2012 (9th ed) Performed By: #### c OHP, CBCWOD, FIB, PT, PTT #### Unless otherwise noted, all testing performed by [place] [address] CLIA: [id number] Staff Sonographer: Brandon Reina M.D. PARTIAL THROMBOPLASTIN Collected: 11/10/2017 Status: F Source: [facility] TIME 1:45 PM [facility] TYPE CODE TESTS RESULT OUT OF REFERENCE UNITS RANGE LAB PTT 23.0-34.0 Seconds Partial Normal Thromboplastin Time 33 Result Comment: Suggested therapeutic range for PTT is 68-104 sec. Performed By: #### c OHP, CBCWOD, FIB, PT, PTT #### Unless otherwise noted, all testing performed by [place] [address] CLIA: [id number] Staff Sonographer: Brandon Reina M.D. CHEST (ONE VIEW Observed: 11/10/2017 Status: F Source: [facility] ONLY) 1:34 PM [facility] REPOS[facility] Final Report Accession No: [id number] Performed: Nov 10 2017 1:34PM Examination: CHEST (ONE VIEW ONLY) SINGLE AP CHEST CLINICAL HISTORY: Chest post CABG. COMPARISON: Chest x-ray 10/21/2017. FINDINGS: Single AP supine, portable view is submitted. The patient is post sternotomy, aortic valve replacement with intact sternal wires. Endotracheal tube, nasogastric tube, left-sided chest tube, and right IJ [place] catheter are all in satisfactory position. There is no pneumothorax. Mild basilar vascular congestion is seen. No acute osseous lesion is present. IMPRESSION: 1. Satisfactory position lines and tubes post sternotomy and aortic valve replacement. 2. Mild basilar vascular congestion. 3. No pneumothorax. Interpreting Physician: VINICIUS URBINA M.D. Trans: md : cc: CBC W/O DIFF Collected: 11/10/2017 Status: F Source: [facility] 1:04 [facility] REPOSITORY TYPE CODE TESTS RESULT OUT OF REFERENCE UNITS RANGE LAB WBC 3.6-10.4 K/mcL WBC High 17.7 LAB RBC 4.0-5.5 M/mcL Low RBC 3.64 LAB HGB 12.9-16.9 g/dL Low Hemoglobin 10.4 LAB HCT 37.9-49.2 % Low Hematocrit 31.1 LAB MCV 82.8-99.3 FL MCV 85.5 LAB MCH 27.7-34.6 pg MCH 28.6 LAB MCHC 32.9-35.5 g/dL MCHC 33.4 LAB RDW 10-14.3 % RDW 13.8 LAB PLT 139-354 K/mcL Low Platelet Count 133 LAB MPV 6.6-10.8 FL MPV 7.5 Performed By: #### PTT, CBCWOD, PT, FIB #### Unless otherwise noted, all testing performed by [address] [address] CLIA: [id number] Staff Sonographer: Brandon Reina M.D. FIBRINOGEN Collected: 11/10/2017 Status: F Source: [facility] 1:04 [facility] REPOSITORY TYPE CODE TESTS RESULT OUT OF REFERENCE UNITS RANGE LAB FIB 224-483 mg/dL Fibrinogen 316 Performed By: #### PTT, CBCWOD, PT, FIB #### Unless otherwise noted, all testing performed by [place] [address] CLIA: [id number] Staff Sonographer: Brandon Reina M.D. PROTIME Collected: 11/10/2017 Status: F Source: [facility] 1:04 PM [facility] TYPE CODE TESTS RESULT OUT OF REFERENCE UNITS RANGE LAB PT. 11.8-14.3 Seconds High Protime 20.3 LAB INR INR 1.77 Result Comment: The [employer] recommended therapeutic range for Warfarin (Coumadin) therapy goals: PROPHYLAXIS/TREATMENT of: INR Venous Thrombosis, Pulmonary Embolism 2.0-3.0 Prevention of VTE (Orthopedic Surgery) 2.0-3.0 Atrial Fibrillation 2.0-3.0 Myocardial Infarction 2.0-3.0 Mechanical Prosthetic Heart Valves (Aortic position) 2.0-3.0 Mechanical Prosthetic Heart Valves (Mitral Position) 2.5-3.5 [employer] evidence-based clinical practice guidelines. CHEST. 2012 (9th ed) Performed By: #### PTT, CBCWOD, PT, FIB #### Unless otherwise noted, all testing performed by [place] [address] CLIA: [id number] Staff Sonographer: Brandon Reina M.D. PARTIAL THROMBOPLASTIN Collected: 11/10/2017 Status: F Source: [facility] TIME 1:04 PM [facility] TYPE CODE TESTS RESULT OUT OF REFERENCE UNITS RANGE LAB PTT 23.0-34.0 Seconds Partial High Thromboplastin Time 44 Result Comment: Suggested therapeutic range for PTT is 68-104 sec. Performed By: #### PTT, CBCWOD, PT, FIB #### Unless otherwise noted, all testing performed by [place] [address] CLIA: [id number] Staff Sonographer: Brandon Reina M.D. ISTAT CG8 PANEL Collected: 11/10/2017 Status: F Source: [facility] 12:38 PM [facility] TYPE CODE TESTS RESULT OUT OF REFERENCE UNITS RANGE LAB GLU 70-99 mg/dL High Glucose 212 LAB NA 136-141 mmol/L Sodium 139 LAB K 3.5-4.9 mmol/L Potassium 4.3 LAB CAION 1.12-1.32 mmol/L Ionized Calcm 1.15 LAB ipH 7.350-7.450 pH 7.38 LAB iPCO2 35.0-45.0 mm Hg PCO2 39 LAB iPO2 80-105 mm Hg PO2 High 215 LAB iTCO2 23-27 mmol/L TCO2 24 LAB iHCO3 22-26 mmol/L HCO3 23 LAB Darryl -2-3 mmol/L Base Excess -2 LAB iSO2 95-98 % O2 High Saturation 100 LAB SOURCEBG Source, Blood Arterial Gas Blood LAB HGB 12.0-17.0 g/dL Low Hemoglobin 8.8 LAB HCT 43.0-51.0 % Low Hematocrit 26 Performed By: #### ICG8 #### Unless otherwise noted, all testing performed by [address] [address] CLIA: [id number] Staff Sonographer: Brandon Reina M.D. ISTAT CG8 PANEL Collected: 11/10/2017 Status: F Source: [facility] 12:19 [facility] REPOSITORY TYPE CODE TESTS RESULT OUT OF REFERENCE UNITS RANGE LAB GLU 70-99 mg/dL High Glucose 243 LAB NA 136-141 mmol/L Sodium 136 LAB K 3.5-4.9 mmol/L Potassium 4.8 LAB CAION 1.12-1.32 mmol/L Ionized Calcm 1.25 LAB ipH 7.350-7.450 pH 7.36 LAB iPCO2 35.0-45.0 mm Hg PCO2 43 LAB iPO2 80-105 mm Hg PO2 High 276 LAB iTCO2 23-27 mmol/L TCO2 25 LAB iHCO3 22-26 mmol/L HCO3 24 LAB Darryl -2-3 mmol/L Base Excess -2 LAB iSO2 95-98 % O2 High Saturation 100 LAB SOURCEBG Source, Blood Arterial Gas Blood LAB HGB 12.0-17.0 g/dL Low Hemoglobin 9.2 LAB HCT 43.0-51.0 % Low Hematocrit 27 Performed By: #### ICG8, ACT #### Unless otherwise noted, all testing performed by [place] [address] CLIA: [id number] Staff Sonographer: Brandon Reian M.D. ACTIVATED CLOTTING Collected: 11/10/2017 Status: F Source: [facility] TIME 12:19 PM [facility] TYPE CODE TESTS RESULT OUT OF RANGE REFERENCE UNITS LAB ACT Seconds Normal Activated 368 Clotting Time Result Comment: Testing performed during open heart surgery by Yara Torres Performed By: #### ICG8, ACT #### Unless otherwise noted, all testing performed by [place] [address] CLIA: [id number] Staff Sonographer: Brandon Reina M.D. ISTAT CG8 PANEL Collected: 11/10/2017 Status: F Source: [facility] 12:05 PM [facility] TYPE CODE TESTS RESULT OUT OF RANGE REFERENCE UNITS LAB GLU 70-99 mg/dL High Glucose 267 LAB NA 136-141 mmol/L Low Sodium 134 LAB K 3.5-4.9 mmol/L High Potassium 6.0 LAB CAION 1.12-1.32 mmol/L Low Ionized Calcm 0.97 LAB ipH 7.350-7.450 pH Unknown 7.34 LAB iPCO2 35.0-45.0 mm Hg PCO2 45 LAB iPO2 80-105 mm Hg High PO2 312 LAB iTCO2 23-27 mmol/L TCO2 26 LAB iHCO3 22-26 mmol/L HCO3 25 LAB Darryl -2-3 mmol/L Base Excess -1 LAB iSO2 95-98 % High O2 Saturation 100 LAB SOURCEBG Source, Blood Arterial Gas Blood LAB HCT 43.0-51.0 % Low Hematocrit 27 LAB HGB 12.0-17.0 g/dL Low Hemoglobin 9.2 Performed By: #### ACT, ICG8 #### Unless otherwise noted, all testing performed by [place] [address] CLIA: [id number] Staff Sonographer: Brandon Reina M.D. ACTIVATED CLOTTING Collected: 11/10/2017 Status: F Source: [facility] TIME 12:05 PM [facility] TYPE CODE TESTS RESULT OUT OF RANGE REFERENCE UNITS LAB ACT Seconds Normal Activated 443 Clotting Time Result Comment: Testing performed during open heart surgery by Yara Torres Performed By: #### ACT, ICG8 #### Unless otherwise noted, all testing performed by [address] [address] CLIA: [id number] Staff Sonographer: Brandon Reina M.D. ISTAT CG8 PANEL Collected: 11/10/2017 Status: F Source: [facility] 11:22 AM [facility] TYPE CODE TESTS RESULT OUT OF RANGE REFERENCE UNITS LAB GLU 70-99 mg/dL High Glucose 261 LAB NA 136-141 mmol/L Sodium 136 LAB K 3.5-4.9 mmol/L High Potassium 5.1 LAB CAION 1.12-1.32 mmol/L Low Ionized Calcm 0.97 LAB ipH 7.350-7.450 pH Unknown 7.31 LAB iPCO2 35.0-45.0 mm Hg PCO2 44 LAB iPO2 80-105 mm Hg High PO2 283 LAB iTCO2 23-27 mmol/L TCO2 23 LAB iHCO3 22-26 mmol/L HCO3 22 LAB Darryl -2-3 mmol/L Low Base Excess -4 LAB iSO2 95-98 % High O2 Saturation 100 LAB SOURCEBG Source, Blood Arterial Gas Blood LAB HCT 43.0-51.0 % Low Hematocrit 29 LAB HGB 12.0-17.0 g/dL Low Hemoglobin 9.9 Performed By: #### ICG8, ACT #### Unless otherwise noted, all testing performed by [place] [address] CLIA: [id number] Staff Sonographer: Brandon Reina M.D. ACTIVATED CLOTTING Collected: 11/10/2017 Status: F Source: [facility] TIME 11:22 AM [facility] TYPE CODE TESTS RESULT OUT OF RANGE REFERENCE UNITS LAB ACT Seconds Normal Activated 479 Clotting Time Result Comment: Testing performed during open heart surgery by Yara Torres Performed By: #### ICG8, ACT #### Unless otherwise noted, all testing performed by [place] [address] CLIA: [id number] Staff Sonographer: Brandon Reina M.D. ISTAT CG8 PANEL Collected: 11/10/2017 Status: F Source: [facility] 10:59 AM [facility] TYPE CODE TESTS RESULT OUT OF RANGE REFERENCE UNITS LAB GLU 70-99 mg/dL High Glucose 279 LAB NA 136-141 mmol/L Sodium 136 LAB K 3.5-4.9 mmol/L High Potassium 5.2 LAB CAION 1.12-1.32 mmol/L Low Ionized Calcm 1.00 LAB ipH 7.350-7.450 pH Unknown 7.29 LAB iPCO2 35.0-45.0 mm Hg High PCO2 46 LAB iPO2 80-105 mm Hg High PO2 287 LAB iTCO2 23-27 mmol/L TCO2 24 LAB iHCO3 22-26 mmol/L HCO3 23 LAB Darryl -2-3 mmol/L Low Base Excess -4 LAB iSO2 95-98 % High O2 Saturation 100 LAB SOURCEBG Source, Blood Arterial Gas Blood LAB HGB 12.0-17.0 g/dL Low Hemoglobin 10.9 LAB HCT 43.0-51.0 % Low Hematocrit 32 Performed By: #### ICG8, ACT #### Unless otherwise noted, all testing performed by [place] [address] CLIA: [id number] Staff Sonographer: Brandon Reina M.D. ACTIVATED CLOTTING Collected: 11/10/2017 Status: F Source: [facility] TIME 10:59 AM [facility] REPOS[facility] TYPE CODE TESTS RESULT OUT OF RANGE REFERENCE UNITS LAB ACT Seconds Normal Activated 426 Clotting Time Result Comment: Testing performed during open heart surgery by Yara Torres Performed By: #### ICG8, ACT #### Unless otherwise noted, all testing performed by [place] [address] CLIA: [id number] Staff Sonographer: Lilia Gil CG8 PANEL Collected: 11/10/2017 Status: F Source: [facility] 10:33 AM [facility] REPOSIT[facility] TYPE CODE TESTS RESULT OUT OF REFERENCE UNITS RANGE LAB GLU 70-99 mg/dL High Glucose 299 LAB NA 136-141 mmol/L Low Sodium 135 LAB K 3.5-4.9 mmol/L High Potassium 5.5 LAB CAION 1.12-1.32 mmol/L Low Ionized Calcm 0.96 LAB ipH 7.350-7.450 pH 7.38 LAB iPCO2 35.0-45.0 mm Hg PCO2 39 LAB iPO2 80-105 mm Hg PO2 High 276 LAB iTCO2 23-27 mmol/L TCO2 24 LAB iHCO3 22-26 mmol/L HCO3 23 LAB Darryl -2-3 mmol/L Base Low Excess -3 LAB iSO2 95-98 % O2 High Saturation 100 LAB SOURCEBG Source, Blood Arterial Gas Blood LAB HCT 43.0-51.0 % Low Hematocrit 31 LAB HGB 12.0-17.0 g/dL Low Hemoglobin 10.5 Performed By: #### ICG8, ACT #### Unless otherwise noted, all testing performed by [place] [address] CLIA: [id number] Staff Sonographer: Brandon Reina M.D. ACTIVATED CLOTTING Collected: 11/10/2017 Status: F Source: [facility] TIME 10:33 AM [facility] REPOS[facility] TYPE CODE TESTS RESULT OUT OF RANGE REFERENCE UNITS LAB ACT Seconds Normal Activated 517 Clotting Time Result Comment: Testing performed during open heart surgery by Yara Torres Performed By: #### ICG8, ACT #### Unless otherwise noted, all testing performed by [place] [address] CLIA: [id number] Staff Sonographer: Lilia GilT CG8 PANEL Collected: 11/10/2017 Status: F Source: [facility] 10:09 AM [facility] REPOS[facility] TYPE CODE TESTS RESULT OUT OF RANGE REFERENCE UNITS LAB GLU 70-99 mg/dL High Glucose 269 LAB NA 136-141 mmol/L Low Sodium 134 LAB K 3.5-4.9 mmol/L High Potassium 5.6 LAB CAION 1.12-1.32 mmol/L Low Ionized Calcm 0.88 LAB ipH 7.350-7.450 pH Unknown 7.33 LAB iPCO2 35.0-45.0 mm Hg PCO2 36 LAB iPO2 80-105 mm Hg High PO2 322 LAB iTCO2 23-27 mmol/L Low TCO2 20 LAB iHCO3 22-26 mmol/L Low HCO3 19 LAB Darryl -2-3 mmol/L Low Base Excess -7 LAB iSO2 95-98 % High O2 Saturation 100 LAB SOURCEBG Source, Blood Arterial Gas Blood LAB HCT 43.0-51.0 % Low Hematocrit 30 LAB HGB 12.0-17.0 g/dL Low Hemoglobin 10.2 Performed By: #### ACT, ICG8 #### Unless otherwise noted, all testing performed by [place] [address] CLIA: [id number] Staff Sonographer: Brandon Reina M.D. ACTIVATED CLOTTING Collected: 11/10/2017 Status: F Source: [facility] TIME 10:09 AM [facility] REPOS[facility] TYPE CODE TESTS RESULT OUT OF RANGE REFERENCE UNITS LAB ACT Seconds Normal Activated 592 Clotting Time Result Comment: Testing performed during open heart surgery by Yara Torres Performed By: #### ACT, ICG8 #### Unless otherwise noted, all testing performed by [place] [address] CLIA: [id number] Staff Sonographer: Brandon Reina M.D. ISTAT CG8 PANEL Collected: 11/10/2017 Status: F Source: [facility] 9:36 AM [facility] REPOSIT[facility] TYPE CODE TESTS RESULT OUT OF REFERENCE UNITS RANGE LAB GLU 70-99 mg/dL High Glucose 212 LAB NA 136-141 mmol/L Low Sodium 135 LAB K 3.5-4.9 mmol/L Potassium 4.2 LAB CAION 1.12-1.32 mmol/L Low Ionized Calcm 0.97 LAB ipH 7.350-7.450 pH 7.41 LAB iPCO2 35.0-45.0 mm Hg PCO2 36 LAB iPO2 80-105 mm Hg PO2 High 381 LAB iTCO2 23-27 mmol/L TCO2 24 LAB iHCO3 22-26 mmol/L HCO3 23 LAB Darryl -2-3 mmol/L Base Excess -2 LAB iSO2 95-98 % O2 High Saturation 100 LAB SOURCEBG Source, Blood Arterial Gas Blood LAB HGB 12.0-17.0 g/dL Low Hemoglobin 9.2 LAB HCT 43.0-51.0 % Low Hematocrit 27 Performed By: #### ICG8, ACT #### Unless otherwise noted, all testing performed by [place] [address] CLIA: [id number] Staff Sonographer: Brandon Reina M.D. ACTIVATED CLOTTING Collected: 11/10/2017 Status: F Source: [facility] TIME 9:36 AM [facility] REPOS[facility] TYPE CODE TESTS RESULT OUT OF RANGE REFERENCE UNITS LAB ACT Seconds Normal Activated 719 Clotting Time Result Comment: Testing performed during open heart surgery by Yara Torres Performed By: #### ICG8, ACT #### Unless otherwise noted, all testing performed by [place] [address] CLIA: [id number] Staff Sonographer: Brandon Reina M.D. ISTAT CG8 PANEL Collected: 11/10/2017 Status: F Source: [facility] 9:02 [facility] REPOSITORY TYPE CODE TESTS RESULT OUT OF REFERENCE UNITS RANGE LAB GLU 70-99 mg/dL High Glucose 248 LAB NA 136-141 mmol/L Low Sodium 135 LAB K 3.5-4.9 mmol/L Potassium 4.9 LAB CAION 1.12-1.32 mmol/L Ionized Calcm 1.13 LAB ipH 7.350-7.450 pH 7.40 LAB iPCO2 35.0-45.0 mm Hg PCO2 Low 33 LAB iPO2 80-105 mm Hg PO2 High 281 LAB iTCO2 23-27 mmol/L TCO2 Low 22 LAB iHCO3 22-26 mmol/L HCO3 Low 21 LAB Darryl -2-3 mmol/L Base Low Excess -4 LAB iSO2 95-98 % O2 High Saturation 100 LAB SOURCEBG Source, Blood Arterial Gas Blood LAB HCT 43.0-51.0 % Low Hematocrit 36 LAB HGB 12.0-17.0 g/dL Hemoglobin 12.2 Performed By: #### ICG8, ACT #### Unless otherwise noted, all testing performed by [place] [address] CLIA: [id number] Staff Sonographer: Brandon Reina M.D. ACTIVATED CLOTTING Collected: 11/10/2017 Status: F Source: [facility] TIME 9:02 AM [facility] REPOS[facility] TYPE CODE TESTS RESULT OUT OF RANGE REFERENCE UNITS LAB ACT Seconds Normal Activated 769 Clotting Time Result Comment: Testing performed during open heart surgery by Yara Torres Performed By: #### ICG8, ACT #### Unless otherwise noted, all testing performed by [place] [address] CLIA: [id number] Staff Sonographer: Brandon Reina M.D. ISTAT CG8 PANEL Collected: 11/10/2017 Status: F Source: [facility] 7:55 AM [facility] REPOSIT[facility] TYPE CODE TESTS RESULT OUT OF REFERENCE UNITS RANGE LAB GLU 70-99 mg/dL High Glucose 194 LAB NA 136-141 mmol/L Sodium 136 LAB K 3.5-4.9 mmol/L Potassium 4.1 LAB CAION 1.12-1.32 mmol/L Ionized Calcm 1.13 LAB ipH 7.350-7.450 pH 7.38 LAB iPCO2 35.0-45.0 mm Hg PCO2 37 LAB iPO2 80-105 mm Hg PO2 High 291 LAB iTCO2 23-27 mmol/L TCO2 23 LAB iHCO3 22-26 mmol/L HCO3 22 LAB Darryl -2-3 mmol/L Base Low Excess -3 LAB iSO2 95-98 % O2 High Saturation 100 LAB SOURCEBG Source, Blood Arterial Gas Blood LAB HCT 43.0-51.0 % Low Hematocrit 36 LAB HGB 12.0-17.0 g/dL Hemoglobin 12.2 Performed By: #### ICG8, ACT #### Unless otherwise noted, all testing performed by [place] [address] CLIA: [id number] Staff Sonographer: Brandon Reina M.D. ACTIVATED CLOTTING Collected: 11/10/2017 Status: F Source: [facility] TIME 7:55 AM [facility] REPOS[facility] TYPE CODE TESTS RESULT OUT OF RANGE REFERENCE UNITS LAB ACT Seconds Normal Activated 138 Clotting Time Result Comment: Testing performed during open heart surgery by Yara Torres Performed By: #### ICG8, ACT #### Unless otherwise noted, all testing performed by [place] [address] CLIA: [id number] Staff Sonographer: Brandon Reina M.D. GLUCOSE, POC Collected: 11/10/2017 Status: F Source: [facility] 6:05 AM [facility] REPOS[facility] TYPE CODE TESTS RESULT OUT OF RANGE REFERENCE UNITS LAB GLUX 80-115 mg/dL High Glucose, 126 POC Performed By: #### GLUX #### Unless otherwise noted, all testing performed by [place] [address] CLIA: [id number] Staff Sonographer: Brandon Reina M.D. BASIC METABOLIC PANEL Collected: 11/10/2017 Status: F Source: [facility] 5:54 AM [facility] REPOSIT[facility] TYPE CODE TESTS RESULT OUT OF REFERENCE UNITS RANGE LAB GLU 70-99 mg/dL High Glucose 125 Result Comment: This test result might be falsely depressed or falsely elevated on samples drawn from patients taking Sulfasalazine and Sulfapyridine. Venipuncture should occur prior to taking either of these drugs. LAB BUN 8-25 mg/dL BUN 25 LAB CREA 0.80-1.30 mg/dL Creatinine High 1.42 LAB eGFR >60 ml/min/1.73s Low q.m eGFR,NonAfrican-Am erican 50 Result Comment: Non- GFR Calc eGFR is an estimated Glomerular Filtration Rate based on the value of the patient's serum creatinine. In outpatients, eGFR should be used as a helpful tool in screening for CKD. In inpatients or patients with acute renal failure, eGFR represents the GFR at the moment of the draw and should be used with caution. LAB eGFRB ml/min/1.73sq.m eGFR, -Canadian >=60 Result Comment: GFR Calc LAB CALCM 8.4-10.2 mg/dL Calcium 9.2 LAB NA 135-145 mmol/L Sodium 137 LAB K 3.5-5.1 mmol/L Potassium 4.0 LAB CL 98-108 mmol/L Chloride 103 LAB CO2 21-32 mmol/L CO2 25 Performed By: #### CHEM8 #### Unless otherwise noted, all testing performed by [place] [address] [place] [address] CLIA: [id number] Staff Sonographer: Brandon Reina M.D. Observed: 11/10/2017 Status: F Source: [facility] TYPE AND CROSS 5:54 AM [facility] REPOSITORY ABO: A Rh: Positive Antibody Screen: Negative Leuko-reduced RBCs: PRBC, [place] [id number] APOS [id number] Crossmatch data- 11/10/2017 06:37 [facility] 11/10/2017 07:04 [facility] 11/11/2017 06:58 AmyKCJENN Leuko- reduced RBCs: PRBC, [place] [id number] APOS [id number] Crossmatch data- 11/10/2017 06:37 [facility] 11/10/2017 07:04 [facility] 11/10/2017 13:44 [facility] RE 11/13/2017 05:58 CSPRENG Leuko-reduced RBCs: PRBC, [place] [id number] APOS [id number] Crossmatch data- 11/10/2017 06:37 [facility] 11/10/2017 07:05 [facility] 11/10/2017 13:44 [facility] RE 11/13/2017 05:58 CSPRENG Leuko-reduced RBCs: PRBC, [place] [id number] APOS [id number] Crossmatch data- 11/10/2017 06:37 [facility] 11/14/2017 06:15 CSPRENG Leuko-reduced RBCs: PRBC, [place] [id number] APOS [id number] Crossmatch data- 11/10/2017 06:37 [facility] 11/10/2017 07:04 [facility] 11/10/2017 13:44 [facility] 11/14/2017 06:15 CSPRENG Leuko-reduced RBCs: PRBC, [place] [id number] APOS [id number] Crossmatch data- 11/10/2017 06:37 [facility] 11/10/2017 07:05 [facility] 11/10/2017 13:44 [facility] 11/14/2017 06:15 CSPRENG Leuko-reduced RBCs: PRBC, [place] [id number] APOS [id number] Crossmatch data- 11/10/2017 06:37 [facility] 11/14/2017 06:15 CSPRENG Leuko-reduced RBCs: PRBC, [place] [id number] APOS [id number] Crossmatch data- 11/10/2017 06:37 [facility] 11/10/2017 07:04 [facility] PT 11/11/2017 06:58 JKCARROLL Irrad. LR PLT Pheresis: Plt Pheresis Leuko-reduced, Irradiated [id number] ANEG [id number] Irrad. LR PLT Pheresis: Crossmatch data- 11/10/2017 08:40 [facility] 11/10/2017 11:53 SARAHI PT 11/11/2017 06:58 JKCARROLL Irrad. LR PLT Pheresis: Plt Pheresis Leuko-reduced, Irradiated [id number] BPOS [id number]-Cc Irrad. LR PLT Pheresis: Crossmatch data- 11/10/2017 08:40 [facility] 11/10/2017 11:55 DKERWOOD PT 11/11/2017 06:58 JKCARROLL Cryoprecipitate Pooled, Random: Random Cryopooled - ARC [id number] APOS [id number] Crossmatch data- XM 11/10/2017 09:07 SMCGRAW Cryoprecipitate Pooled, Random: Random Cryopooled - ARC [id number] APOS [id number] Crossmatch data- XM 11/10/2017 09:07 SMCGRAW Cryoprecipitate Pooled, Random: Random Cryopooled - ARC [id number] APOS [id number] Crossmatch data- IS 11/10/2017 11:53 DKERWOOD PT 11/11/2017 06:58 DIPIKA Cryoprecipitate Pooled, Random: Random Cryopooled - ARC [id number] APOS [id number] Crossmatch data- IS 11/10/2017 11:53 SARAHI PT 11/11/2017 06:58 DIPIKA Performed By: #### XMATCH #### Unless otherwise noted, all testing performed by [facility] [address] [place], [place] [address] CLIA: [id number] Staff Sonographer: Brandon Reina M.D. SURG Observed: 11/10/2017 Status: F Source: [facility] 12:00 AM [facility] REPOS[facility] Patient Name: RIGOBERTO NOLAND Source A. Aortic Valve, Leaflets B. Soft tissue other, Left Internal Mammary Artery Clinical History Coronary Artery Disease, Aortic Stenosis Diagnosis A. Valve leaflets with dystrophic calcification. B. Artery without diagnostic abnormality. Gross Description A. The specimen is received in formalin designated aortic valve leaflets and consists of three king valve leaflets measuring up to 2.8 x 1.6 x 0.6 cm. The leaflets are partially calcified. Fenestrations are present. No vegetations are identified. The specimen is submitted for decalcification. General Supervisor sections are submitted in cassette 1. B. The specimen is received in formalin designated left internal mammary artery and consists of a segment of king-purple blood vessel measuring 4.6 cm in length and a diameter of 0.1 to 0.2 cm. The vessel has a patent lumen. The vessel is surrounded by red-brown skeletal muscle and yellow adipose tissue. General Supervisor sections are submitted in cassette 1. (ICT/lt) Electronically Signed By Bony Garcia DO , Pathologist (Case signed 11/12/2017) US DOPPLER CAROTID Observed: 10/27/2017 Status: F Source: [facility] 9:58 AM [facility] REPOSITORY Non-Invasive Vascular Patient: NUZHAT Nuñez Med Rec#: [id number] (Age): 1955(62y) Study Date: 10/21/2017 Room#: Type: Sex: M Reading: Beth Ocampo MD, RVPI Referring: RENITA PETERSEN LEE Blue Line Trimmer: LAYLA CRAMER Procedure Info: [id number]... Study Quality: Carotid Duplex: adequate Diagnosis: R42 Dizziness and giddiness Carotid Duplex (Dizziness 780.4 ) Conclusions There was no evidence of stenosis of the right common carotid artery. There was minimal stenosis (1-19%) in the right internal carotid artery. There was no evidence of stenosis in the right external carotid artery. The right vertebral artery was patent with antegrade flow. There was no evidence of stenosis in the right subclavian artery. There was no evidence of stenosis of the left common carotid artery. There was minimal stenosis (1-19%) in the left internal carotid artery. There was no evidence of stenosis in the left external carotid artery. The left vertebral artery was patent with antegrade flow. There was no evidence of stenosis in the left subclavian artery. Findings The right common carotid artery showed no evidence of plaque. The right internal carotid artery contained a small amount of calcified plaque, heterogeneous in consistency. The right external carotid artery showed no evidence of plaque. The left common carotid artery showed no evidence of plaque. The left internal carotid artery contained a small amount of calcified plaque, heterogeneous in consistency. The left external carotid artery showed no evidence of plaque. The procedure was explained to the patient. The patient voiced understanding. Measurements Right Carotid PSV Name Value Units PCCA 91 cm/sec MCCA 76 cm/sec DCCA -90.9 cm/sec PICA -48.6 cm/sec ALMONTE -49 cm/sec DICA -53.5 cm/sec ECA -60 cm/sec Vertebral -37.3 cm/sec Taylor PSV 122 cm/sec PSCA 102 cm/sec Right Carotid EDV Name Value Units PCCA 28 cm/sec MCCA 22.7 cm/sec DCCA -19.6 cm/sec PICA -22 cm/sec LAMONTE -20 cm/sec DICA -18.7 cm/sec ECA -6.66 cm/sec Vertebral -12.7 cm/sec Left Carotid PSV Name Value Units PCCA 84.4 cm/sec MCCA 91 cm/sec DCCA -77.9 cm/sec PICA 47.6 cm/sec LAMONTE -59.9 cm/sec DICA -69.1 cm/sec ECA -67 cm/sec Vertebral -29.6 cm/sec PSCA 87.3 cm/sec Left Carotid EDV Name Value Units PCCA 14.1 cm/sec MCCA 25.1 cm/sec DCCA -13.7 cm/sec PICA 15.2 cm/sec LAMONTE -16.8 cm/sec DICA -24.1 cm/sec ECA -11.5 cm/sec Vertebral -8.78 cm/sec Blood Pressures and Ratios Name Value Units R ICA/CCA 0.7 ratio L ICA/CCA 0.76 ratio History CAD. Diabetes. Hyperlipidemia. Hypertension. Electronically signed at 10/27/2017 09:58:17 by: Beth Ocampo MD, RVPI BLOOD GAS, ARTERIAL Collected: 10/21/2017 Status: F Source: [facility] 12:26 PM [facility] REPOS[facility] TYPE CODE TESTS RESULT OUT OF RANGE REFERENCE UNITS LAB ipH 7.350-7.450 Normal pH 7.398 LAB iPCO2 35-45 mm Hg Low PCO2 34.8 Result Comment: Value below reference range LAB iPO2 80-100 mm Hg PO2 Normal 80.6 LAB iHCO3 22-26 mmol/L HCO3 Low 21.5 LAB Darryl -2-2 mmol/L Base Low Excess -2.6 LAB O2HB 92-99 % O2 Hemoglobin Normal 94.8 LAB AAGRAD mm Hg [id number] Normal 21.9 LAB AARATIO % Aa Ratio Normal 78.6 LAB BygA5Mes 92-99 % Hemoglobin O2 Sat. Normal 96.8 LAB COHB % Carboxyhemoglobin Normal < 1.4 Result Comment: notified at Value below reportable range < 1.4 [place] Non-Smoker <1.5% of total Hgb Smoker 1.5 - 5.0 % of total Hgb Heavy Smoker 5.0 - 9.0 % of total Hgb LAB METHB < 2.0 % Methemoglobin Normal 0.8 LAB HHB 0.0-5.0 % DeOxyhemoglobin Normal (HHB) 3.1 LAB pHt 7.350-7. 450 pH (temp conv.) Normal 7.398 LAB pCO2t 35.0-45. mm Hg Low 0 pCO2 (temp conv.) 34.8 LAB pO2t 80-100 mm Hg pO2 (temp conv.) Normal 80.6 LAB DRAWNBY Drawn By (Bld Gas) Normal pdb LAB SITEABG Site (Bld Gas) Normal RTBRACH LAB THB 13.5-17. g/dL 5 Hemoglobin (Bld Gas) Normal 15.7 LAB HCTABG 41-53 % Hematocrit (Bld Gas) Normal 48.3 LAB [id number] O2 Device Normal Room Air LAB FIO2 21-100 % FIO2 Normal 21.0 LAB TEMPABG 36.0-38. Celsius 0 Temperature (Bld Normal Gas) 37.0 LAB ALLENS Allens Test Normal N/A LAB BGINST Blood Gas Instrument Normal ;ICU Performed By: #### ABG #### Unless otherwise noted, all testing performed by [facility] [address] [place], [place] [address] CLIA: [id number] Staff Sonographer: Brandon Reina M.D. CHEST PA AND LATERAL Observed: 10/21/2017 Status: F Source: [facility] 12:08 PM [facility] Final Report Accession No: [id number] Performed: Oct 21 2017 12:08PM Examination: CHEST PA AND LATERAL TWO-VIEW CHEST COMPARISON: None. REASON FOR STUDY: Preoperative evaluation. REPORT: The lungs are clear and well aerated. No effusion or nodule or pneumothorax is noted. The diaphragm and bony elements are intact. No pneumomediastinum is noted. Postsurgical changes are noted of the lower cervical spine. IMPRESSION: Nonacute two-view chest. Interpreting Physician: FABIEN CHAVIRA D.O. Trans: bmagga : cc: CBC WITH DIFF Collected: 10/21/2017 Status: F Source: [facility] 11:47 AM [facility] REPOS[facility] TYPE CODE TESTS RESULT OUT OF RANGE REFERENCE UNITS LAB WBC 3.6-10.4 K/mcL WBC Normal 8.3 LAB RBC 4.0-5.5 M/mcL High RBC 5.55 LAB HGB 12.9-16.9 g/dL Normal Hemoglobin 15.8 LAB HCT 37.9-49.2 % Normal Hematocrit 48.3 LAB MCV 82.8-99.3 FL MCV Normal 87.1 LAB MCH 27.7-34.6 pg MCH Normal 28.5 LAB MCHC 32.9-35.5 g/dL Low MCHC 32.7 LAB RDW 10-14.3 % RDW Normal 13.5 LAB PLT 139-354 K/mcL Platelet Normal Count 185 LAB MPV 6.6-10.8 FL MPV Normal 9.0 LAB NEUT# 1.4-6.8 K/mcL Normal Neutrophil # 6.8 LAB LYMPH# 0.9-3.6 K/mcL Normal Lymphocyte # 0.9 LAB MONO# 0.2-0.6 K/mcL Monocyte Normal # 0.4 LAB EOS# 0-0.5 K/mcL Normal Eosinophil # 0.2 LAB BASO# 0-0.2 K/mcL Basophil Normal # 0.0 LAB SEGNEU% % Normal Segmented Neut % 81.8 LAB LYMP% % Normal Lymphocyte% 10.9 LAB MO% % Monocyte Normal % 5.1 LAB EO% % Normal Eosinophil % 2.0 LAB BA% % Basophil Normal % 0.2 Performed By: #### CMET, HBA1C, CBCDIF, PREALB, PTT, LIPASE, PT, ASTON #### Unless otherwise noted, all testing performed by [address] [address] CLIA: [id number] Staff Sonographer: Brandon Reina M.D. PROTIME Collected: 10/21/2017 Status: F Source: [facility] 11:47 AM [facility] TYPE CODE TESTS RESULT OUT OF RANGE REFERENCE UNITS LAB PT. 11.8-14.3 Seconds Normal Protime 12.7 LAB INR Normal INR 0.98 Result Comment: The [employer] recommended therapeutic range for Warfarin (Coumadin) therapy goals: PROPHYLAXIS/TREATMENT of: INR Venous Thrombosis, Pulmonary Embolism 2.0-3.0 Prevention of VTE (Orthopedic Surgery) 2.0-3.0 Atrial Fibrillation 2.0-3.0 Myocardial Infarction 2.0-3.0 Mechanical Prosthetic Heart Valves (Aortic position) 2.0-3.0 Mechanical Prosthetic Heart Valves (Mitral Position) 2.5-3.5 [employer] evidence-based clinical practice guidelines. CHEST. 2012 (9th ed) Performed By: #### CMET, HBA1C, CBCDIF, PREALB, PTT, LIPASE, PT, ASTON #### Unless otherwise noted, all testing performed by [address] [place] [address] CLIA: [id number] Staff Sonographer: Brandon Reina M.D. PARTIAL THROMBOPLASTIN Collected: 10/21/2017 Status: F Source: [facility] TIME 11:47 AM [facility] TYPE CODE TESTS RESULT OUT OF REFERENCE UNITS RANGE LAB PTT 23.0-34.0 Seconds Partial Normal Thromboplastin Time 28 Result Comment: Suggested therapeutic range for PTT is 68-104 sec. Performed By: #### CMET, HBA1C, CBCDIF, PREALB, PTT, LIPASE, PT, ASTON #### Unless otherwise noted, all testing performed by [place] [address] CLIA: [id number] Staff Sonographer: Brandon Reina M.D. AMYLASE Collected: 10/21/2017 Status: F Source: [facility] 11:47 AM [facility] TYPE CODE TESTS RESULT OUT OF RANGE REFERENCE UNITS LAB ASTON 25-115 U/L Normal Amylase 62 Performed By: #### CMET, HBA1C, CBCDIF, PREALB, PTT, LIPASE, PT, ASTON #### Unless otherwise noted, all testing performed by [place] [address] CLIA: [id number] Staff Sonographer: Brandon Reina M.D. LIPASE Collected: 10/21/2017 Status: F Source: [facility] 11:47 AM [facility] TYPE CODE TESTS RESULT OUT OF RANGE REFERENCE UNITS LAB LIPASE 73-393 U/L Normal Lipase 326 Performed By: #### CMET, HBA1C, CBCDIF, PREALB, PTT, LIPASE, PT, ASTON #### Unless otherwise noted, all testing performed by [place] [address] CLIA: [id number] Staff Sonographer: Brandon Reina M.D. PREALBUMIN Collected: 10/21/2017 Status: F Source: [facility] 11:47 AM [facility] TYPE CODE TESTS RESULT OUT OF REFERENCE UNITS RANGE LAB PREALB 20.0-40.0 mg/dL Normal Prealbumin 28.0 Performed By: #### CMET, HBA1C, CBCDIF, PREALB, PTT, LIPASE, PT, ASTON #### Unless otherwise noted, all testing performed by [facility] [address] [place] [id number] CLIA: [id number] Staff Sonographer: Brandon Reina M.D. COMPREHENSIVE METABOLIC Collected: 10/21/2017 Status: F Source: [facility] PANEL 11:47 AM [facility] TYPE CODE TESTS RESULT OUT OF REFERENCE UNITS RANGE LAB GLU 70-99 mg/dL High Alert Glucose 436 Result Comment: [id number] CALLED CRITICAL RESULTS ON 10/21/2017 @ 1321 TO AND READ BACK BY FAUSTO RUBI in DR GREY'S OFFICE This test result might be falsely depressed or falsely elevated on samples drawn from patients taking Sulfasalazine and Sulfapyridine. Venipuncture should occur prior to taking either of these drugs. LAB BUN 8-25 mg/dL BUN High 36 LAB CREA 0.80-1.30 mg/dL Creatinine High 1.74 LAB eGFR >60 ml/min/1.73s Low q.m eGFR,NonAfrican-Am erican 40 Result Comment: Non- GFR Calc eGFR is an estimated Glomerular Filtration Rate based on the value of the patient's serum creatinine. In outpatients, eGFR should be used as a helpful tool in screening for CKD. In inpatients or patients with acute renal failure, eGFR represents the GFR at the moment of the draw and should be used with caution. LAB eGFRB >60 ml/min/1.73sq.m eGFR, -Canadian Low 48 Result Comment: GFR Calc LAB CALCM 8.4-10.2 mg/dL Calcium 9.7 LAB NA 135-145 mmol/L Low Sodium 132 LAB K 3.5-5.1 mmol/L High Potassium 5.5 LAB CL 98-108 mmol/L Low Chloride 96 LAB CO2 21-32 mmol/L CO2 24 LAB AST 0-45 U/L AST (SGOT) 9 Result Comment: This test result might be falsely depressed or falsely elevated on samples drawn from patients taking Sulfasalazine and Sulfapyridine. Venipuncture should occur prior to taking either of these drugs. LAB ALT 14-65 U/L ALT (SGPT) 25 Result Comment: This test result might be falsely depressed or falsely elevated on samples drawn from patients taking Sulfasalazine and Sulfapyridine. Venipuncture should occur prior to taking either of these drugs. LAB ALKP 40-150 U/L Alkaline Phosphatase 71 LAB BILIT 0.3-1.2 mg/dL High Bilirubin,Total 1.4 LAB PROT 6.0-8.0 g/dL Protein, Total 7.8 LAB ALB 3.2-5.2 g/dL Albumin 3.9 Performed By: #### CMET, HBA1C, CBCDIF, PREALB, PTT, LIPASE, PT, ASTON #### Unless otherwise noted, all testing performed by [place] [address] CLIA: [id number] Staff Sonographer: Brandon Reina M.D. HEMOGLOBIN A1C Collected: 10/21/2017 Status: F Source: [facility] 11:47 AM [facility] REPOSITORY TYPE CODE TESTS RESULT OUT OF REFERENCE UNITS RANGE LAB HBA1C 4.1-6.5 % High Hemoglobin A1C 8.9 Performed By: #### CMET, HBA1C, CBCDIF, PREALB, PTT, LIPASE, PT, ASTON #### Unless otherwise noted, all testing performed by [place] [address] CLIA: [id number] Staff Sonographer: Brandon Reina M.D. Observed: 10/21/2017 Status: F Source: [facility] PAT TYPE AND SCREEN 11:47 AM [facility] REPOSITORY ABO: A Rh: Positive Antibody Screen: Negative Performed By: #### PATTS #### Unless otherwise noted, all testing performed by [place] [address] CLIA: [id number] Staff Sonographer: Brandon Reina M.D. URINALYSIS, ROUTINE Collected: 10/21/2017 Status: F Source: [facility] 11:34 AM [facility] REPOSITORY TYPE CODE TESTS RESULT OUT OF REFERENCE UNITS RANGE LAB COLOR Normal Color, Urine Yellow LAB CHAUR Normal Character Clear LAB SPGRUR 1.003-1.029 Normal Specific 1.018 [place],Urine LAB PHUR 4.5-8.0 Normal pH,Urine 5.0 LAB GLUCUR < 70 mg/dL High Glucose,Urine >= 500 LAB KETUR NEG;NEGATIVE mg/dL Normal Ketone,Urine Negative LAB PROTUR NEG;NEGATIVE mg/dL Normal Protein,Urine Negative LAB BLDUR NEG;NEGATIVE Normal Blood,Urine Negative LAB NITUR NEG;NEGATIVE Normal Nitrite,Urine Negative LAB BILIUR NEG;NEGATIVE Normal Bilirubin,Urin Negative e LAB UROUR <2 mg/dL Normal Urobilinogen,U < 2.0 rine LAB LEUESTUR Negative Normal Leuk.Esterase, Negative Urine Performed By: #### UA #### Unless otherwise noted, all testing performed by [place] [address] CLIA: [id number] Staff Sonographer: Brandon Reina M.D. Observed: 10/21/2017 Status: F Source: [facility] CULTURE, URINE 11:34 AM [facility] REPOSITORY Test Name: Culture, Urine Culture Status: Final Culture Report: No Growth - Day 2 Micro Source: Urine - clean catch Performed By: #### URCUL #### Unless otherwise noted, all testing performed by [place] [address] CLIA: [id number] Staff Sonographer: Brandon Reina M.D. VENOUS BLOOD GAS Collected: 10/11/2017 Status: F Source: [place] 10:09 AM [facility] REPOSITORY TYPE CODE TESTS RESULT OUT OF RANGE REFERENCE UNITS LAB L9000.9990 Normal BLD GAS RAISA TYPE LAB L9002.1110 7.32-7.42 Normal VBGpH - 7.35 I-STAT LAB L9002.1212 41-51 mmHg Normal VBG pCO2 42.4 - ISTA LAB L9002.1310 25-40 mmHg Normal VBG PO2 39 I-STAT LAB L9002.2300 22-26 mmol/L Normal VBG HCO3 23 ISTAT LAB L9002.2400 -1.0-3.5 mmol/L Low VBG BE -2 ISTAT LAB L9002.2410 50-70 % High VBG SO2 71 ISTAT LAB L9002.2415 23-33 mmol/L Normal VBG O2 CT 25 ISTAT Performed By: #### L9000.0810 #### [facility] Point of Care [address] [place] [address] VENOUS BLOOD GAS Collected: 10/11/2017 Status: F Source: [place] 10:05 AM [facility] REPOSITORY TYPE CODE TESTS RESULT OUT OF RANGE REFERENCE UNITS LAB L9000.9990 Normal BLD GAS RAISA TYPE LAB L9002.1110 7.32-7.42 Low VBGpH - 7.30 I-STAT LAB L9002.1212 41-51 mmHg Low VBG pCO2 36.3 - ISTA LAB L9002.1310 25-40 mmHg Normal VBG PO2 39 I-STAT LAB L9002.2300 22-26 mmol/L Low VBG HCO3 18 ISTAT LAB L9002.2400 -1.0-3.5 mmol/L Low VBG BE -9 ISTAT LAB L9002.2410 50-70 % Normal VBG SO2 69 ISTAT LAB L9002.2415 23-33 mmol/L Low VBG O2 CT 19 ISTAT Performed By: #### L9000.0810 #### [facility] Point of Care [address] [place] [address] BLOOD GASES BY [facility] Collected: 10/11/2017 Status: F Source: [place] 10:02 AM [facility] REPOSITORY TYPE CODE TESTS RESULT OUT OF RANGE REFERENCE UNITS LAB L9000.9990 Normal BLD GAS ART TYPE LAB L9001.1110 7.35-7.45 Normal pH - 7.39 I-STAT LAB L9001.1210 35-45 mmHg Low pCO2 - 34.1 ISTAT LAB L9001.1310 75-100 mmHG Normal PO2 87 I-STAT LAB L9001.2300 22-26 mmol/L Low HCO3 20.7 ISTAT LAB L9001.2400 -2 to +2 mmol/L Low BE ISTAT -4 LAB L9001.2415 mmol/L Normal TOTAL CO2 22 ISTAT LAB L9001.2425 95-99 % Normal SO2 ISTAT 97 Performed By: #### L9000.0800 #### [place] [facility] Point of Care [address] [place] [address] OFFICE VISIT REPORT Observed: 10/07/2017 Status: F Source: [place] 5:00 PM [facility] REPOSITORY [facility] Services [address] [place] [address] OFFICE VISIT Date of Service: 10/04/17 MR#: [id number] Acct: [id number] Patient: RIGOBERTO NOLAND Rep #: [id number] : 1955 Provider: Rui Walters MD Age/Sex: 62/M Location: [facility] Status: Signed Intake Intake Visit 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 Allergies meperidine [From Demerol] Adverse Reaction (Severe, Verified 09/22/17 10:49) Syncope shellfish Adverse Reaction (Severe, Uncoded 09/20/17 10:14) Diarrhea Medications carvedilol 25 mg tablet 25 mg PO BID 09/20/17 [History Confirmed 09/22/17] glyburide 5 mg tablet 5 mg PO QDAY 09/20/17 [History Confirmed 09/22/17] lisinopril 10 mg tablet 10 mg PO QDAY 09/20/17 [History Confirmed 09/22/17] metformin 500 mg tablet 500 mg PO BID 09/20/17 [History Confirmed 09/22/17] pravastatin 40 mg tablet See Label Instructions PO QHS 09/20/17 [History Confirmed 09/22/17] spironolactone 25 mg tablet 25 mg PO QDAY 09/20/17 [History Confirmed 09/22/17] pioglitazone 15 mg tablet 15 mg PO QDAY 09/22/17 [History Confirmed 09/22/17] Assessment AND Plan Orders Orders: Nursing Note Patient here for heart cath teaching and ekg. He already had CXR and labs this am. Cath scheduled for Wednesday10/11/17. 10/07/17 1700 <Electronically signed by Rui Walters MD> Date Rui Worrell Signature: Date (if applicable) CC: Bria James 12 LEAD EKG PERFORMED Observed: 10/04/2017 Status: F Source: [facility] BY [facility] 9:38 AM [facility] REPOSITORY [facility] [address] [place] [address] 12 Lead EKG performed by [facility] 10/04/17936 MR#: [id number] Acct: [id number] Name: RIGOBERTO NOLAND Rep #: [id number] : 1955 62 From: Rui Walters MD Attending Dr: Rui Walters MD Status: DEP AMB Ordering Dr: Rui Walters MD Date: 10/04/17 Location: [facility] Sex: M C Admitted: BMS/12 Lead EKG performed by [facility] ECG Report Interpretation Sinus Rhythm - Nonspecific T-abnormality. ABNORMAL Electronically signed on 10/12/2017 at 08:53 by Rui Walters 10/12/17 0857 Date Rui Walters MD CC: Carolyn Ramachandran Date Dictated: 10/04/17936 Date Transcribed: 10/04/17936 Tooler: CO Signed CBC-COMPLETE BLOOD CNT Collected: 10/04/2017 Status: F Source: [facility] NO DIFF 9:13 AM [facility] REPOSITORY Order Comment: Comments: For heart cath Comments: for heart cath TYPE CODE TESTS RESULT OUT OF RANGE REFERENCE UNITS LAB L100.1000 4.4-11.0 K/mm3 Normal WBC 6.7 LAB L100.1200 4.6-6.2 M/mm3 Normal RBC 5.39 LAB L100.1300 13.0-16.5 g/dl Normal HGB 15.6 LAB L100.1400 40-54 % Normal HCT 45.8 LAB L100.1500 80-94 fL Normal MCV 85.0 LAB L100.1600 27.0-32.0 pg Normal MCH 28.9 LAB L100.1700 32-36 g/gl Normal MCHC 34.1 LAB L100.1810 11.6-14.6 % Normal RDW CV 13.5 LAB L100.1820 35.1-43.9 fl Normal RDW SD 41.9 LAB L100.1900 150-450 K/mm3 Normal PLT 181 LAB L100.2000 6.2-12.0 fl Normal MPV 10.4 Performed By: #### L100.0500 #### [facility] [address] [place], [address] BASIC METABOLIC Collected: 10/04/2017 Status: F Source: [facility] PROFILE (BMP) 9:13 AM [facility] REPOSITORY Order Comment: Comments: for heart cath Comments: for heart cath TYPE CODE TESTS RESULT OUT OF RANGE REFERENCE UNITS LAB L501.0100 74-106 mg/dL High GLU 226 Result Comment: Glucose result greater than or equal to 200 mg/dL suggests DIABETES MELLITUS per A.D.A. criteria. Please note revised GLUCOSE reference range effective 2017. LAB L501.1000 7-18 mg/dL High BUN 23 LAB L501.1100 0.70-1.30 mg/dL High CREAT,SERUM 1.39 Result Comment: The validity of the calculated GFR AND GFRAA in patients over 70 years has not been determined. Clinical correlation is essential. LAB L501.1110 >60 mL/min Low EST GFR 55 Result Comment: Non- GFR Calc LAB L501.1115 >60 mL/min Normal EST GFR - AA 67 Result Comment: GFR Calc LAB L501.1300 10-20 RATIO Normal BUN/CRE 16.5 LAB L501.2200 8.5-10.1 mg/dL CA Normal 9.2 LAB L501.5300 136-145 mmol/L Low NA 135 LAB L501.5600 3.5-5.1 mmol/L K Normal 4.4 LAB L501.5900 98-107 mmol/L CL Normal 100 LAB L501.6100 21.0-32.0 mmol/L Normal CO2 27.0 LAB L501.6200 5-15 Normal GAP 8 Performed By: #### L500.2500 #### [facility] [address] [place], [address] CHEST PA AND LATERAL Observed: 10/04/2017 Status: F Source: [place] 9:10 AM [facility] REPOSITORY [facility] Imaging Services [address] [place] [address] Chest PA and Lateral MR#: [id number] Acct: [id number] Name: RIGOBERTO NOLAND Rep #: [id number] : 1955 M 62 From: Earnest Booker MD PCP: Carolyn Ramachandran Status: REG CLI Study: Chest PA and Lateral Date of Exam: 10/04/17 Exam# [id number] Ordering Dr: Rui Walters MD STUDY: X-RAY CHEST REASON FOR EXAM: Male, 62 years old. Pre heart catheter. TECHNIQUE: Frontal and lateral views of the chest. COMPARISON: None. FINDINGS: The lungs are clear and expanded. There is no demonstrated pleural abnormality. Normal size heart. Normal mediastinum and merrick. Normal visualized pulmonary arteries. Normal visualized aortic arch and descending thoracic aorta. There are diffuse degenerative changes of the visualized thoracic spine. Previous cervical spine surgery. Normal visualized ribs, clavicles, and shoulders. There is no demonstrated abnormality of the visualized soft tissue structures of the upper abdomen. RAD/Chest PA and Lateral IMPRESSION: No acute chest disease. Electronically Signed: Earnest Booker MD at 16:52 EDT , Service support , CC: Rui Walters MD; Carolny Ramachandran Tooler: Signed ECHOCARDIOGRAM COMPLETE Observed: 09/27/2017 Status: F Source: [place] 4:25 PM [facility] REPOSITORY [facility] Cardiovascular [place] [address] Echo Complete 09/27/17 1106 MR#: [id number] Acct: [id number] Name: RIGOBERTO NOLAND Rep #: [id number] : 1955 62 From: Rui Walters MD Attending Dr: Katharine Arroyo Status: REG CLI Ordering Dr: Katharine Arroyo Date: 09/27/17 Location: [facility] Sex: M C Admitted: Reason For Study: Aortic Stenosis Procedure This was a 2D Doppler, Color Flow transthoracic echocardiogram. The study was technically difficult. Due to body habitus. Exam performed in department. Left Ventricle Normal LV size. Moderately severe segmental systolic dysfunction (see wall motion). The estimated ejection fraction is 30 %. Anterio-Basal: Normal. Lateral- Basal: Normal. Infero-Basal: Akinetic. Mid-Lateral : Normal. Mid-Posterior: Normal. Posterior-Basal: Normal. Mid-anteroseptal : Akinetic. Rest of the vera hypokinetic. Right Ventricle Normal RV size. Normal systolic function. Atria Normal left atrium. Normal right atrium. Mitral Valve Normal mitral valve. Tricuspid Valve Normal tricuspid valve. Mild (1+) tricuspid valve insufficiency. Aortic Valve Trisinus/trileaflet aortic valve. Mild focal aortic valve calcification. Peak aortic valve gradient 48 mmHg. Mean aortic valve gradient 28 mmHg. Calculated aortic valve area (continuity equation) is 0.8 cm2. Mild (1+) eccentric aortic valve insufficiency. Pulmonic Valve Normal pulmonic valve. Great Vessels Normal aortic root. The pulmonary artery is normal size. Normal inferior vena cava. Pericardium/Pleural No pericardial effusion. MMode/2D Measurements AND Calculations LVIDd: 5.3 cm IVSd: 1.1 cm LVOT diam: 2.2 cm LVIDs: 4.3 cm LVPWd: 1.1 cm LVOT area: 3.9 cm2 RVDd: 2.8 cm FS: 18.8 % Ao root diam: 2.9 cm LAV(MOD-bp): 56.6 ml LA A4 area: 19.2 cm2 LA dimension: 3.9 cm LAV(MOD-bp) Indexed: 25.4 ml/m2 LAV(MOD-sp2): 51.4 ml LAV(MOD-sp4): 58.8 ml RA A4 area: 10.5 cm2 Doppler Measurements AND Calculations MV E max jimena: 96.0 cm/sec Lat Peak E' Jimena: 8.2 cm/sec Med Peak E' Jimena: 5.6 cm/sec MV A max jimena: 124.5 cm/sec E/E' lat: 11.7 E/E' med: 17.1 MV E/A: 0.77 Ao V2 max: 345.7 cm/sec AI max jimena: 404.7 cm/sec LV V1 max: 71.3 cm/sec Ao max P.8 mmHg AI max P.7 mmHg LV V1 max P.0 mmHg Ao V2 mean: 253.6 cm/sec AI dec slope: 369.2 cm/sec2 LV V1 mean P.93 mmHg Ao mean P.0 mmHg AI P1/2t: 321.0 msec LV V1 mean: 45.5 cm/sec Ao V2 VTI: 73.7 cm LV V1 VTI: 16.8 cm JAIME(I,D): 0.90 cm2 JAIME(V,D): 0.81 cm2 SV(LVOT): 66.2 ml PA V2 max: 115.3 cm/sec TR max jimena: 210.4 cm/sec TR max P.7 mmHg Interpretation Summary Normal LV size. Moderately severe segmental systolic dysfunction (see wall motion). The estimated ejection fraction is 30 %. Mild focal aortic valve calcification. Mean aortic valve gradient 28 mmHg. Mild (1+) eccentric aortic valve insufficiency. Calculated aortic valve area (continuity equation) is 0.8 cm2. Low flow low gradient likely Ordering Physician: Katharine Arroyo Performed By: Sada Gonzalez, ALIZA, RVT 09/27/17 1625 Date Rui Walters MD CC: Carolyn Ramachandran; Katharine Arroyo Date Dictated: 09/27/17 1106 Date Transcribed: 09/27/175 Tooler: Signed CARDIOLOGY VISIT Observed: 09/22/2017 Status: F Source: [facility] REPORT 12:14 PM [facility] REPOSITORY [facility] [address] [place], [place] [address]. [address] [place] [address] OFFICE VISIT Date of Service: 09/22/17 MR#: [id number] Acct: [id number] Name: RIGOBERTO NOLAND Rep #: [id number] : 1955 Provider: Katharine Arroyo Age/Sex: 62/M Location: [facility] Status: Signed HPI HPI Details: RIGOBERTO NOLAND, is a 62 M who presents to the office today for a cardiovascular follow up. He has a history of nonischemic cardiomyopathy and moderate aortic stenosis. Pt sts that when he walks he notes a dull ache in his upper chest that started last fall. When he stops to rest it resolves after 10-15 seconds. He has not walked much during the winter. He is SOB carrying a load of laundry a flight of steps. He does not have any lightheadedness/dizziness. He does not have any near syncope/syncope. He does not have any edema. Intake Vital Signs09/22/17 Height 5 ft 9 in 09/22/17 Weight: 245 lb 09/22/17 Body Mass Index (BMI) 36.1 09/22/17 Blood Pressure 122/72 09/22/17 Blood Pressure Location Lt brachial Intake Visit Reasons: 1 Y FU [place] Worker Required: No Accompanied by: None Is patient in pain?: No Allergies meperidine [From Demerol] Adverse Reaction (Severe, Verified 09/22/17 10:49) Syncope shellfish Adverse Reaction (Severe, Uncoded 09/20/17 10:14) Diarrhea Medications carvedilol 25 mg tablet 25 mg PO BID 09/20/17 [History Confirmed 09/22/17] glyburide 5 mg tablet 5 mg PO QDAY 09/20/17 [History Confirmed 09/22/17] lisinopril 10 mg tablet 10 mg PO QDAY 09/20/17 [History Confirmed 09/22/17] metformin 500 mg tablet 500 mg PO BID 09/20/17 [History Confirmed 09/22/17] pravastatin 40 mg tablet See Label Instructions PO QHS 09/20/17 [History Confirmed 09/22/17] spironolactone 25 mg tablet 25 mg PO QDAY 09/20/17 [History Confirmed 09/22/17] pioglitazone 15 mg tablet 15 mg PO QDAY 09/22/17 [History Confirmed 09/22/17] Ejection fraction %: 35 to 39 PFSH Medical History 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) Hyperlipidemia (Chronic) Cardiomyopathy in other diseases classified elsewhere (Chronic) Congestive heart failure (Chronic) Nonrheumatic aortic (valve) stenosis (Chronic) Surgical History History of fusion of cervical spine (Resolved) Family History Father CAD (coronary artery disease) Mother Hypertension Social History Smoking Status: Never smoker alcohol intake: never substance use type: does not use diet: diabetic caffeine: Yes Type: carbonated beverages what type of physical activity do you participate in: none seatbelt use: always do you feel safe at home: Yes ROS Const Const: Negative for weakness, fatigue, fever(s) or headache(s) Eyes Eyes: Negative for blind spots, loss of peripheral vision or transient loss of vision ENT ENT: Negative for headache(s), dizziness, tinnitus or Nosebleed/epistaxis Cardio Chest Pain: Yes Palpitations: No Edema: None Muscle aches with walking: None Resp Respiratory: Positive for SOB with activity; negative for SOB at rest, SOB orthopnea\SOB lying down or Cough GI GI: Negative nausea, vomiting, heartburn or vomiting blood/hematemesis : Negative for hematuria Musc Musc: Negative for muscle aches/ myalgia Neuro Neuro: Negative for weakness, headache(s), dizziness, near syncope, syncope, lightheadedness or orthostatic symptoms Hawk Hematologic/Lymphatic: Negative for easy bleeding Endo Endo: Negative for fatigue Cardiology Exam Const Appearance: cooperative, no acute distress and well developed Orientation: alert, awake and oriented x3 Head Head: normocephalic and atraumatic Mouth: moist mucous membranes Eyes General: appearance normal, both eyes and all related structures Conjunctivae: conjunctivae normal Pupils: PERRL EOM: EOM intact bilaterally Neck Neck: normal visual inspection, no lymphadenopathy and no JVD Carotids: Negative bruit Neck Mass: Negative Neck mass Chest Chest inspection: normal inspection of the chest and symmetric chest movement Auscultation: Bilateral: Clear to Auscultation Cardio Palpation: normal PMI Rate: regular rate Rhythm: regular rhythm Heart sounds: S1 normal, S2 normal and murmur; negative rub or gallop Murmur: harsh, Grade 2/6, late systolic, LLSB and radiates to carotids GI GI: normal to inspection, soft, no hepatosplenomegaly and bowel sounds present; negative tender Neuro General: alert, awake, oriented x3, CN's II-XI intact bilaterally and moves all extremities Extremities Pulses: Normal: Right Posterior Tibial Pulse, Left Posterior Tibial Pulse, Right Radial Pulse, Left Radial Pulse Lower Extremity Edema: None: Bilateral Psych Psychological: normal affect Supplemental Info Echocardiogram in 2017 demonstrated Normal LV size. The estimated ejection fraction is 37 %. There is moderate global hypokinesis of the left ventricle. Moderate focal aortic valve thickening. Mean aortic valve gradient 31 mmHg. Moderate aortic stenosis. Calculated aortic valve area (continuity equation) is 0.8 cm2. Assessment AND Plan 1. Cardiomyopathy in other diseases classified elsewhere I43 Plan - NYDIA John Patient does not have any symptoms of congestive heart failure. He will continue with current medical management. We will continue to monitor by history, exam and echocardiograms as deemed appropriate. Orders Orders: 2. Nonrheumatic aortic (valve) stenosis I35.0 Plan - NYDIA John With patient's symptoms of a dull chest ache during exertion. He does have moderate aortic stenosis. Would like to reevaluate aortic valve with an echocardiogram. Plan Detail Additional Comments - NYDIA John The above patient was discussed with Dr. Walters, he agrees with plan of care. Thank you for allowing us to participate in patient's plan of care, if you have any questions please do not hesitate to call. This note was generated using a voice recognition system and there may be incorrect words, spelling or punctuation errors that were not noted when reviewing the office note prior to saving. 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) Coding Level of Care Code Off vis,est,level 4 Diagnoses Cardiomyopathy in other diseases classified elsewhere I43 Nonrheumatic aortic (valve) stenosis I35.0 Coding Level of Care Code Off vis,est,level 4 Diagnoses Cardiomyopathy in other diseases classified elsewhere I43 Nonrheumatic aortic (valve) stenosis I35.0 09/22/17 1206 <Electronically signed by Katharine STAFFORD> Date Katharine STAFFORD 09/22/17 1214<Electronically signed by Rui Walters MD> Cosigner Signature: Date (if applicable) Rui Walters MD CC: Carolyn Ramachandran ALLERGIES ALLERGIES DATE TYPE / CODE NAME / CODE REACTION SEVERITY SOURCE Drug meperidine/F006 syncope [place] 8 Allergy/[id number]( 996817(RXNORM) Community SNOMED CT) Hospital Repository Miscellaneous shellfish Diarrhea [place] 8 Allergy/592388381( [facility] SNOMED [facility]) Hospital Repository DRUG MEPERIDINE [place] [address] INGREDI/196788923( Three [address]) Repository DRUG SHELLFISH [place] [address] INGREDI/779663040( DERIVED Three SN[address] CT) Repository DRUG/582170325(SNO MEPERIDINE (PF) INTOLERANCE [place] [address]) Clinic [place] Repository DRUG SHELLFISH GI UPSET [place] [address] INGREDI/163673694( DERIVED Clinic Main SNOMED CT) [place] Repository ENCOUNTERS ENCOUNTERS ADMIT/DISCHARGE ACCOUNT NUMBER ADMITTING ENCOUNTER LOCATION SOURCE CLASS 07/20/2018 [id number] Ambulatory Building:[facility] 07/19/2018/07/20/19 [id number] Ambulatory [address] Main [place] Repository 07/18/2018 [id number] [facility] [address] Repository 07/11/2018 [id number] Ambulatory [facility] ding:LAB Repository 07/06/2018/07/06/19 [id number] Ambulatory Building:[place] [address] [address] Three Repository 07/06/[id number] Damaris Ambulatory [facility] Repository 06/29/2018/07/04/[id number] Jeff Ambulatory [address] Repository 06/17/2018/06/17/20 [id number] Ambulatory BMSBuilding: [place] [address] BMS.[facility] Repository 06/16/2018 [id number] Ambulatory BMSBuilding: [place] BMS.[facility] Hospital Repository 06/13/2018/06/13/20 [id number] Ambulatory [place] [address] [facility] ding:LAB Repository 06/07/2018/06/07/[id number] Hemal Emergency [address] lding:[address] [facility] DeptRoom: Hospitals A1E H5YBRjd: Repository A1E A1ED03 05/24/2018 [id number] [facility] [address] Repository 05/16/2018/05/27/20 [id number] Ambulatory [place] [address] [place] [address] ding:LAB Repository 05/12/2018/05/12/20 [id number] Ambulatory BMSBuilding: [place] 18 BMS.[facility] Repository 04/26/2018/04/26/20 [id number] [address] [address] Repository 04/26/2018/04/30/20 [id number] [address] [address] Repository 04/26/[id number] Shelly Ambulatory [facility] Repository 04/19/2018 [id number] [facility] [address] Repository 04/18/2018/04/18/20 [id number] Ambulatory [place] [address] [place] [address] ding:LAB Repository 04/14/2018 [id number] Ambulatory Building:[facility] ENDO[place] Three Repository 04/13/2018/04/13/20 [id number] Ambulatory Building:[place] [address] [place] Three Repository 03/21/2018/03/25/20 [id number] [address] [address] Repository 03/16/2018 [id number] [facility] [address] Repository 03/14/2018/03/28/20 [id number] Ambulatory [address] ding:LAB Repository 03/09/2018/03/09/20 [id number] Ambulatory Building:[place] [address] Repository 03/01/2018/03/05/20 [id number] Ambulatory Building:[place] [address] [facility] Three LOCATION Repository 03/01/2018/03/02/[id number] Shelly Ambulatory [address] lding:A30D [facility] : A30D Repository 3030Bed: A30D [id number] 02/25/2018 [id number] Dr. Shelly Ambulatory [facility] Repository 02/21/2018/02/22/20 [id number] Ambulatory [address] ding:LAB Repository 02/14/2018/02/15/20 [id number] Ambulatory Building:[address] Repository 02/14/2018 [id number] Ambulatory Building:[facility] [address] Repository 02/11/2018/02/12/20 [id number] Ambulatory Building:[place] [address] [address] Three Repository 02/11/[id number] Shelly Ambulatory [facility] Repository 01/26/2018 [id number] Ambulatory Building:[facility] 01/24/2018/01/25/20 [id number] Ambulatory [address] ding:LAB Repository 01/11/2018/01/12/20 [id number] Ambulatory Building:[place] [address] [facility] Three Repository 01/11/2018 [id number] Ambulatory Building:[facility] [address] Repository 01/10/2018 [id number] Ambulatory [facility] ding:LAB Repository 01/07/2018/01/08/20 [id number] Ambulatory BMSBuilding: [address] Repository 01/04/2018/07/10 [id number] Ambulatory Building:[place] [address] [address] Three Repository 01/04/[id number] Damaris Ambulatory [facility] Repository 12/27/2017 [id number] Ambulatory [facility] ding:LAB.YAMILET Repository URE 12/22/2017/12/23/19 [id number] Ambulatory Building:[address] Repository 12/22/[id number] Jeff Ambulatory [facility] Repository 12/17/[id number] Jeff Ambulatory [facility] Repository 12/17/2017/12/24/19 [id number] Ambulatory Building:[address] Three Repository 12/13/[id number] Jeff Ambulatory [facility] Repository 12/13/2017/12/24/19 [id number] Ambulatory Building:[address] Three Repository 12/10/[id number] Jeff Ambulatory [facility] Repository 12/10/2017/12/24/19 [id number] Ambulatory Building:[address] Three Repository 12/06/[id number] Jeff Ambulatory [facility] Repository 12/06/2017/12/24/19 [id number] Ambulatory Building:[address] Three Repository 12/01/[id number] Jeff Ambulatory [facility] Repository 12/01/2017/12/24/19 [id number] Ambulatory Building:[address] Three Repository 11/29/2017 [id number] Ambulatory Building:[facility] Three Repository 11/26/2017 [id number] Ambulatory Building:[facility] [address] Repository 11/26/2017 [id number] Greyson Ambulatory [facility] Repository 11/26/2017/12/24/19 [id number] Ambulatory Building:[address] Three Repository 11/24/2017/11/25/19 [id number] Ambulatory Building:[address] Repository 11/24/[id number] Jeff Ambulatory [facility] Repository 11/24/2017/12/24/19 [id number] Ambulatory Building:[address] Three Repository 11/23/[id number] Jeff Ambulatory [facility] Repository 11/23/2017/12/24/19 [id number] Ambulatory Building:[address] Three Repository 11/20/[id number] Jeff Ambulatory [facility] Repository 11/20/2017/12/24/19 [id number] Ambulatory Building:[address] Three Repository 11/19/2017 [id number] Ashly Noland Ambulatory [facility] Repository 11/19/2017/12/24/19 [id number] Ambulatory Building:[address] Three Repository 11/18/[id number] Jeff Ambulatory [facility] Repository 11/18/2017/12/24/19 [id number] Ambulatory Building:[address] Three Repository 11/17/2017 [id number] Ambulatory Building:[facility] [address] Repository 11/17/[id number] Jeff Ambulatory [facility] Repository 11/17/2017/12/24/19 [id number] Ambulatory Building:[address] Three Repository 11/16/[id number] Jeff Ambulatory [facility] Repository 11/16/2017/12/24/19 [id number] Ambulatory Building:[address] Three Repository 11/15/[id number] Jeff Ambulatory [facility] Repository 11/15/2017/12/24/19 [id number] Ambulatory Building:[address] Three Repository 11/14/2017/12/24/19 [id number] Ambulatory Building:[place] [address] [address] Three Repository 11/10/2017/11/11/19 [id number] Ambulatory Building:[place] [address] MOC[address] Three LOCATION Repository 11/10/2017/11/15/[id number] Jeff Inpatient [place] [address] Carolyn [place] Encounter lding:[address] and CVICURoom: [place] A32 3203Bed: [facility] A32 [id number] Repository 11/05/[id number] Jeff Ambulatory [facility] Carolyn S[facility] Repository 10/27/2017/10/28/19 [id number] Ambulatory Building:[place] [address] ENDO[address] Three Repository 10/21/2017/10/22/19 [id number] Ambulatory Building:[place] [address] [facility] [address] Repository 10/21/2017/10/22/19 [id number] Ambulatory Building:[place] [address] [address] Three Repository 10/21/2017 [id number] Bezilla, Ambulatory [facility] Repository 10/21/2017 [id number] Rubi, Ambulatory [facility] Repository 10/11/2017 [id number] Ambulatory [facility] ding:CLSP Repository 10/11/2017 [id number] Ambulatory BMSBuilding: [facility] Repository 10/04/2017/10/05/19 [id number] Ambulatory BMSBuilding: [place] 18 BMS.[facility] Repository 10/04/2017 [id number] Ambulatory [facility] ding:LAB Repository 09/27/2017 [id number] Ambulatory [facility] ding:CVS Repository 09/27/2017 [id number] Ambulatory BMSBuilding: [facility] Repository 09/22/2017/09/23/19 [id number] Ambulatory BMSBuilding: [place] [facility] PAYERS PAYERS ENCOUNTER GUARANTOR PAYER SUBSCRIBER SOURCE 07/20/2018 RIGOBERTO Nuñez [facility] SPRANGDOB: Insurance:HUMANA SPRANGDOB: Three Repository 1955 O MANAGED [id number] O BOX MEDICAREPolicy [address] [place] [address], Number: [place] [address]Iuw: [id number] [place] [address]Yuq: Date:8365-93-39FC BOX () [id number] [place] [address] () [address]DX: 07/20/2018 Secondary RIGOBERTO [facility] Insurance:HCAP/CHARIT SPRANGDOB: Three Repository YPolicy Number: [id number] O Effective BOX Date:2018-05-02, 2018-10-30 [place] [address]Tgq: () 07/20/2018 Tertiary RIGOBERTO G [facility] Insurance:HCAP/CHARIT SPRANGDOB: Three Repository YPolicy Number: [id number] Effective BOX Date:2018-05-02, 2018-10-30 [place] [address]Wrk: () 07/20/2018 Tertiary RIGOBERTO G [facility] Insurance:MEDICAREPol SPRANGDOB: Three Repository icy Number: [id number] O [id number] BOX Date:2010-11-26, [id number] J15 [place] [address]Qzs: PART A CLAIMSPO [address]ABTRHMIBU, [place] () [address]ES: 07/20/2018 Tertiary RIGOBERTO G [facility] Insurance:HCAP/CHARIT SPRANGDOB: Three Repository YPolicy Number: [id number] Effective [address] [address] [facility] Date:2017-11-102018-05-13 [place] [address]Wgq: () 07/18/2018 RIGOBERTO G Primary RIGOBERTO G [facility] SPRANGDOB: Insurance:HUMANA SPRANGDOB: Three Repository 1955 O MANAGED [id number] O BOX MEDICAREPolicy [address] [place] [address], Number: [facility] [place] [address]Axt: [id number] [place] [address]Lyu: Date:3884-01-27CT BOX () [address]NLJAK[place], [place] () [address]VC: 07/18/2018 Secondary RIGOBERTO G [facility] Insurance:MEDICAREPol SPRANGDOB: Three Repository icy Number: [id number] O [id number] BOX Date:2010-11-26, 3527-92-29UJP J15 [place] [address]Bvr: PART A CLAIMSPO [address] [place] [address] [place] () [address]CK: 07/18/2018 Tertiary RIGOBERTO G [facility] Insurance:HCAP/CHARIT SPRANGDOB: Three Repository YPolicy Number: [id number] Effective [address] [address] EAST Date:2017-11-102018-05-13 STREETPERRYSVIJOSE [place]BERTO [place], [place] [address]Bec: () 07/18/2018 Tertiary RIGOBERTO G [facility] Insurance:HCAP/CHARIT SPRANGDOB: Three Repository YPolicy Number: [id number] Effective [address] [address] EAST Date:2017-11-102018-05-13 STREETPERRYSVIJOSE [place]BERTO [place], [place] [address]Kys: () 07/18/2018 Tertiary RIGOBERTO G [facility] Insurance:HCAP/CHARIT SPRANGDOB: Three Repository YPolicy Number: [id number] Effective BOX Date:2018-05-02, 2018-10-30 [place] [address]Nau: () 07/18/2018 Tertiary RIGOBERTO G [facility] Insurance:HCAP/CHARIT SPRANGDOB: Three Repository YPolicy Number: [id number] Effective BOX Date:2018-05-02, 2018-10-30 [place] [address]Xyz: (HP) 07/11/2018 RIGOBERTO G Primary RIGOBERTO G [place] [id number] E Insurance:HUMANA SPRANGDOB: [facility] BOX MEDICARE [facility] [id number], Number: [place]ository [place] [address]Hwm: [id number] Date:7923-21-64OQ BOX () [address] [place] [address]GC: 07/11/2018 Secondary NOT GIVENUNK [place] Insurance:SELF PAY [facility] Number: Effective Repository Date:2018-06-27 07/06/2018 RIGOBERTO G Primary RIGOBERTO G [facility] SPRANGDOB: Insurance:HUMANA SPRANGDOB: Three Repository 1955 O MANAGED [id number] O BOX MEDICAREPolicy [address], Number: [address] [place] [address]Crp: [id number] [place] [address]Tpg: Date:8496-53-97HM BOX () [address] [place] [address] () [address]ME: 07/06/2018 Secondary RIGOBERTO G [facility] Insurance:HCAP/CHARIT SPRANGDOB: Three Repository YPolicy Number: [id number] Effective BOX Date:2018-05-[address] [place] [address], 2018-10-30 [place] [address]Eaq: (HP) 07/06/2018 Primary RIGOBERTO G [facility] Insurance:Humana SPRANGDOB: [facility] Number: [id number] [facility] [id number] BOX Repository Date:Plan Name:[address] [address]Nnf: (HP) 06/29/2018 Primary RIGOBERTO G [facility] Insurance:Humana SPRANGDOB: [facility] Number: [id number] [facility] [id number] BOX Repository Date:Plan Name:[address] [address]Nyu: () 06/29/2018 Secondary RIGOBERTO G [facility] Insurance:Della SPRANGDOB: [facility] Brunilda Number: [id number] [facility] [id number] BOX Repository ective Date: - [address] [place], [place] [id number] [place] [address]Zff: Name:[place] [address] [facility] () [place], [place] [address]AG: 06/17/2018 RIGOBERTO G Primary RIGOBERTO G [place] [id number] E Insurance:MEDICARE SPRANGDOB: Community FIRST STPO BOX PART A [facility] [id number], Number: Repository [place] [address]Dfa: [id number] Date:2018-06-09 () 06/17/2018 Secondary NOT GIVENUNK [place] Insurance:SELF PAY [facility] Number: Effective Repository Date:2018-06-17 06/16/2018 RIGOBERTO G Primary RIGOBERTO G [place] [id number] E Insurance:MEDICARE SPRANGDOB: Community FIRST STPO BOX PART A [facility] [id number], Number: Repository [place] [address]Tyn: [id number] Date:2018-06-16 () 06/16/2018 Secondary NOT GIVENUNK [place] Insurance:SELF PAY [facility] Number: Effective Repository Date:2018-06-16 06/13/2018 RIGOBERTO G Primary RIGOBERTO G [place] [id number] E Insurance:MEDICARE SPRANGDOB: Community FIRST STPO BOX PART A [facility] [id number], Number: Repository [place] [address]Zrz: [id number] Date:2018-01-24 () 06/13/2018 Secondary NOT GIVENUNK [place] Insurance:SELF PAY [facility] Number: Effective Repository Date:2018-05-30 06/07/2018 Primary RIGOBERTO G [facility] Insurance:MedicarePol SPRANGDOB: [place] [facility] Number: [id number] [facility] [id number] BOX Repository Date:9548-63-81Hldn [address] [place] [address], Name:Rom[place] [address]Wxh: () 06/07/2018 Secondary RIGOBERTO G [facility] Insurance:MedicarePol SPRANGDOB: Brand[place] and icy Number: [id number] [facility] [id number] BOX Repository Date:8241-99-85Ywzu [address] [place] [address], Name:[place] [address]Ygk: () 06/07/2018 Tertiary RIGOBERTO G [facility] Insurance:Della SPRANGDOB: [place] and EfrainBarrow Neurological Instituteicy Number: [id number] Hospitals Samaritan [facility] [id number] BOX Repository ective Date: [facility]0149-16-61Zgtj [place] [address]Giy: Name:[place] [address] [facility] Services[facility] () [place], [place] [address]PP: 05/24/2018 RIGOBERTO G Primary RIGOBERTO G [facility] SPRANGDOB: Insurance:MEDICAREPol SPRANGDOB: Three Repository [id number] BOX icy Number: [id number] [facility] FIRST [id number] [address] [address] [facility] Date:0881-09-65GDD [place] [address]Rpo: J15 PART A CLAIMSPO [facility] [address] [address]DOIWVHVWL, [place], [place] [address]Mco: () [place] [address]CM: () 05/24/2018 Secondary RIGOBERTO G [facility] Insurance:HCAP/CHARIT SPRANGDOB: Three Repository YPolicy Number: [id number] Effective [address] [address] EAST Date:2017-11-10 - 2018-05-13 [facility] SYSTEMJOSE [place]ERT[place] [address]Spm: () 05/24/2018 Tertiary RIGOBERTO G [facility] Insurance:HCAP/CHARIT SPRANGDOB: Three Repository YPolicy Number: [id number] Effective [address] [address] [facility] Date:2017-11-102018-05-13 STREETPERRYSVIJOSE ALBERTO [place], [place] [address]Jow: () 05/16/2018 RIGOBERTO G Primary RIGOBERTO G [place] [id number] E Insurance:MEDICARE SPRANGDOB: [facility] FIRST STPO BOX PART A BPolic [id number], Number: Repository [place] [address]Dgb: [id number] Date:2018-01-24 () 05/16/2018 Secondary NOT GIVENUNK [place] Insurance:SELF PAY [facility] Number: Effective Repository Date:2018-04-28 05/12/2018 RIGOBERTO G Primary RIGOBERTO G [place] [id number] E Insurance:MEDICARE SPRANGDOB: [facility] FIRST STPO BOX PART A BPolic [id number], Number: [place]ository [place] [address]Fdd: [id number] Date:2017-09-22 () 05/12/2018 Secondary NOT GIVENUNK [place] Insurance:SELF PAY [facility] Number: Effective Repository Date:2018-01-07 04/26/2018 RIGOBERTO G Primary RIGOBERTO G [facility] SPRANGDOB: Insurance:MEDICAREPol SPRANGDOB: Three Repository [id number] BOX icy Number: [id number] [facility] [id number] BOX [facility] STREETPERRYS[address] Date:9962-19-17BHJ FIRST [place], [place] [address]Voo: J15 PART A [facility] STREETOASIS BEHAVIORAL HEALTH HOSPITALRYSELECT [facility] [address] [address]OKWAECCZH, [place], [place] [address]Oui: (HP) [place] [address]YX: [phone] () 04/26/2018 Secondary RIGOBERTO G [facility] Insurance:HCAP/CHARIT SPRANGDOB: Three Repository YPolicy Number: [id number] Effective [address] [address] [facility] Date:2017-11-102018-05-13 [place] [address]Qrx: (HP) 04/26/2018 RIGOBERTO G Primary RIGOBERTO G [facility] SPRANGDOB: Insurance:MEDICAREPol SPRANGDOB: Three Repository [id number] BOX icy Number: [id number] [facility] FIRST [id number] [address] [address] [facility] Date:3628-04-86VMJ FIRST [place] [address]Ybq: J15 PART A [facility]OH[facility] [address] [address]TBOAGZJPQ, [place], [place] [address]Xlt: (HP) [place] [address]OW: (HP) 04/26/2018 Secondary RIGOBERTO G [facility] Insurance:HCAP/CHARIT SPRANGDOB: Three Repository YPolicy Number: [id number] Effective [address] [address] [facility] Date:2017-11-102018-05-13 [place] [address]Knd: (HP) 04/26/2018 Primary RIGOBERTO G [facility] Insurance:MedicarePol SPRANGDOB: [place] and icy Number: [id number] [facility] [id number] BOX Repository Date:4379-78-86Yyiq [address] [place] [address], Name:Romie [place] [address]Oxf: (HP) 04/26/2018 Secondary RIGOBERTO G [facility] Insurance:MedicarePol SPRANGDOB: [place] and icy Number: [id number] [facility] [id number] BOX Repository Date:9744-62-54Ghce[address], Name:Romie [place] [address]Deh: (HP) 04/26/2018 Tertiary RIGOBERTO G [facility] Insurance:Della SPRANGDOB: Ticoicy Number: [id number] Hospitals Samaritan Medical Center [id number] BOX Repository ective Date: - [facility]2853-02-38Daan [place] [address]Idc: Name:[place] [address] Romana () [place] [address]AX: 04/19/2018 RIGOBERTO G Primary RIGOBERTO G [facility] SPRANGDOB: Insurance:MEDICAREPol SPRANGDOB: Three Repository [id number] BOX icy Number: [id number] [facility] [id number] [address] [address] [facility] Date:8159-54-10DCX FIRST [place], [place] [address]Bno: J15 PART A CLAIMSOHIOHE[facility] [address] [address]OXYODDHRGIrvin, [place] [address]Gqb: () [place] [address]ZC: [phone] () 04/19/2018 Secondary RIGOBERTO G [facility] Insurance:HCAP/CHARIT SPRANGDOB: Three Repository YPolicy Number: [id number] Effective [address] [address] [facility] Date:2017-11-102018-05-13 [facility]ERRYSELECT [facility] [place], [place] [address]Yxh: () 04/19/2018 Tertiary RIGOBERTO G [facility] Insurance:HCAP/CHARIT SPRANGDOB: Three Repository YPolicy Number: [id number] Effective [address] [address] [facility] Date:2017-11-102018-05-13 [facility] [place], [place] [address]Gdj: () 04/18/2018 RIGOBERTO G Primary RIGOBERTO G [place] [id number] E Insurance:MEDICARE SPRANGDOB: [facility] ST BOX PART A BPolicy [id number], Number: [place]ository [place] [address]Wgc: [id number] Date:2018-01-24 () 04/18/2018 Secondary NOT GIVENUNK [place] Insurance:SELF PAY [facility] Number: Effective Repository Date:2018-03-28 04/14/2018 RIGOBERTO G Primary RIGOBERTO G [facility] SPRANGDOB: Insurance:MEDICAREPol SPRANGDOB: Three Repository [id number] BOX icy Number: [id number] FIRST [id number] [address] [address] [facility] [address]REETPERRYSVILL Date:6891-43-54NWB FIRST [place], [place] [address]Pwn: J15 PART A CLAIMSPO STREETPERRYSVILL [address] [address]WNZUXQHYT, [place], [place] [address]Nae: (HP) [place] [address]JK: (HP) 04/14/2018 Secondary RIGOBERTO G [facility] Insurance:HCAP/CHARIT SPRANGDOB: Three Repository YPolicy Number: [id number] Effective [address] [address] [facility] Date:2017-11-102018-05-13 STREETPERRYSVI [place], [place] [address]Rse: (HP) 04/14/2018 Tertiary RIGOBERTO G [facility] Insurance:HCAP/CHARIT SPRANGDOB: Three Repository YPolicy Number: [id number] Effective BOX [facility] Date:2017-11-102018-05-13 STREETPERRYSVILL [place], [place] [address]Nzt: (HP) 04/13/2018 RIGOBERTO G Primary RIGOBERTO G [facility] SPRANGDOB: Insurance:MEDICAREPol SPRANGDOB: Three Repository [id number] BOX icy Number: [id number] FIRST [id number] BOX [facility] STREETOASIS BEHAVIORAL HEALTH HOSPITALRYSVI Date:1116-37-00EMA FIRST [place], [place] [address]Kce: J15 PART A CLAIMSPO STREETPERRYSVILL [address] [address]CXGGCXUTP, [place], [place] [address]Fpr: (HP) [place] [address]GY: (HP) 04/13/2018 Secondary RIGOBERTO G [facility] Insurance:HCAP/CHARIT SPRANGDOB: Three Repository YPolicy Number: [id number] [address] [address] EAST Date:2017-11-102018-05-13 STREETPERRYSROXANA [place], [place] [address]Eaw: (HP) 03/21/2018 RIGOBERTO G Primary R[facility]OBERTO G [facility] Insurance:MEDICAREPol SPRANGDOB: Three Repository [id number] BOX icy Number: [id number] E[address] FIRST [id number] [address] [address] [facility] [address]ETPERRYSVILL Date:6226-71-71ECJ [facility] [place], [place] [address]Chd: J15 PART A CLAIMSPO STREETPERRYSVILL [address] [address]KYFCAPLLR, [place], [place] [address]Zro: (HP) [place] [address]AA: (HP) 03/21/2018 Secondary RIGOBERTO G [facility] Insurance:HCAP/CHARIT SPRANGDOB: Three Repository YPolicy Number: [id number] Effective [address] [address] [facility] Date:2017-11-102018-05-13 STREETPERRYSROXANA [place], [place] [address]Jem: (HP) 03/16/2018 RIGOBERTO G Primary RIGOBERTO G [facility] HospitalD[facility]: Insurance:MEDICAREPol SPRANGDOB: Three Repository [id number] BOX icy Number: [id number] FIRST [id number] [address] [address] [facility] STREETPERRYSVILL Date:5352-58-53EXG [facility] [place], [place] [address]Idf: J15 PART A CLAIMSPO STREETPERRYSVILL [address] [address]VOXJKWEAQ, [place], [place] [address]Ino: (HP) [place] [address]MV: (HP) 03/16/2018 Secondary RIGOBERTO G [facility] Insurance:HCAP/CHARIT SPRANGDOB: Three Repository YPolicy Number: [id number] Effective [address] [address] EAST Date:2017-11-102018-05-13 STREETPERRYSVIJOSE [place]BERTO [place], [place] [address]Gdo: (HP) 03/16/2018 Tertiary RIGOBERTO G [facility] Insurance:HCAP/CHARIT SPRANGDOB: Three Repository YPolicy Number: [id number] Effective [address] [address] [facility] Date:2017-11-102018-05-13 STREETPERRYSVIJOSE [place]BERTO [place], [place] [address]Jma: (HP) 03/14/2018 RIGOBERTO G Primary RIGOBERTO G [place] [id number] E Insurance:MEDICARE SPRANGDOB: [facility] FIRST STPO [address]OX PART A BPolicy [id number], Number: [place]ository [place] [address]Rhv: [id number] Date:2018-01-24 (HP) 03/14/2018 Secondary NOT GIVENUNK [place] Insurance:SELF PAY [facility] Number: Effective Repository Date:2018-03-01 03/09/2018 RIGOBERTO G Primary RIGOBERTO G [facility] SPRANGDOB: Insurance:MEDICAREPol SPRANGDOB: Three Repository [id number] BOX icy Number: [id number] [facility] [id number] [address] [address] [facility]OSPITALRYSMER[facility] Date:8784-44-25LAU FIRST [place], [place] [address]Jip: J15 PART A CLAIMSPO [facility] [address] [address]RERRTDGLPIrvin, [place] [address]Phc: () [place] [address]VY: (HP) 03/09/2018 Secondary RIGOBERTO G [facility] Insurance:HCAP/CHARIT SPRANGDOB: Three Repository YPolicy Number: [id number] Effective [address] [address] [facility] Date:2017-11-102018-05-13 STREETPERRYSVIJOSE ALBERTO [place], [place] [address]Ndj: (HP) 03/01/2018 RIGOBERTO G Primary RIGOBERTO G [facility] SPRANGDOB: Insurance:MEDICAREPol SPRANGDOB: Three Repository [id number] BOX icy Number: [id number] [facility] [id number] [address] [address] [facility] Date:3138-94-78YJY FIRST [place] [address]Gdq: J15 PART A [facility]OH[facility] [address] [address]RHECLPSGF, [place], [place] [address]Prg: () [place] [address]HW: (HP) 03/01/2018 Secondary RIGOBERTO G [facility] Insurance:HCAP/CHARIT SPRANGDOB: Three Repository YPolicy Number: [id number] Effective [address] [address] [facility] Date:2017-11-102018-05-13 AGAOAS[facility]HAVIOR[facility] HEALTH HOSPITALREYNALDOJOSE ALBERTO [place] [address]Irn: (HP) 03/01/2018 Primary RIGOBERTO G [facility] Insurance:MedicarePol SPRANGDOB: [place] and icy Number: [id number] Hospitals Samaritan Medical [facility] [id number] BOX Repository Date:3018-04-96Imog [address] [place] [address], Name:Rom[place] [address]Fwo: () 03/01/2018 Secondary RIGOBERTO G [facility] Insurance:MedicarePol SPRANGDOB: [place] and icy Number: [id number] Hospitals Samaritan Medical Center [id number] BOX Repository Date:[id number] [address] [place] [address], Name:[place] [address]Bjf: () 03/01/2018 Tertiary RIGOBERTO G [facility] Insurance:Della SPRANGDOB: [place] and EfrainBarrow Neurological Instituteicy Number: [id number] Hospitals [facility] [id number] BOX Repository ective Date: 6025-77-68Leej [place] [address]Ivt: Name:[place] [address] Rom[address] () [place] [address]KT: 02/21/2018 RIGOBERTO G Primary RIGOBERTO G [place] [id number] E Insurance:MEDICARE SPRANGDOB: [facility]ly [facility] FIRST ST[address] BOX PART A BPolicy [id number], Number: Repository [place] [address]Agd: [id number] Date:2018-01-24 () 02/21/2018 Secondary NOT GIVENUNK [place] Insurance:SELF PAY [facility] Number: Effective Repository Date:2018-01-27 02/14/2018 RIGOBERTO G Primary RIGOBERTO G [facility] SPRANGDOB: Insurance:MEDICAREPol SPRANGDOB: Three Repository [id number] BOX icy Number: [id number] [address] [id number] [address] Date:9616-33-93APD [facility] [place], [place] [address]Mxp: J15 [address] [address]HZQYTMQKJ, [place], [place] [address]Tkf: () [place] [address]HE: () 02/14/2018 Secondary RIGOBERTO G [facility] Insurance:HCAP/CHARIT SPRANGDOB: Three Repository YPolicy Number: [id number] Effective [address] [address] [facility] Date:2017-11-102018-05-13 STREETPERRYSVI [place], [place] [address]Tnv: () 02/14/2018 RIGOBERTO G Primary RIGOBERTO G [facility] SPRANGDOB: Insurance:MEDICAREPol SPRANGDOB: Three Repository [id number] BOX icy Number: [id number] [facility] FIRST [id number] [address] [facility] Date:7225-70-13VMG [facility] [place], [place] [address]Vjm: J15 [address] [address]ARHJGDJWV, [place], [place] [address]Otl: (HP) [place] [address]PB: () 02/14/2018 Secondary RIGOBERTO G [facility] Insurance:HCAP/CHARIT SPRANGDOB: Three Repository YPolicy Number: [id number] Effective [address] [address] [facility] Date:2017-11-102018-05-13 [place] [address]Phk: (HP) 02/14/2018 Tertiary RIGOBERTO G [facility] Insurance:HCAP/CHARIT SPRANGDOB: Three Repository YPolicy Number: [id number] Effective [address] [address] E[address] Date:2017-11-102018-05-13 AGAPERRYLILI [place], [place] [address]Igq: (HP) 02/11/2018 RIGOBERTO G Primary RIGOBERTO G [facility] SPRANGDOB: Insurance:MEDICAREPol SPRANGDOB: Three Repository [id number] BOX icy Number: [id number] BOX [facility] Date:9628-06-89SKX FIRST [place], [place] [address]Qvp: J15 PART A CLAIMSPO [facility] ALBERT[facility] [address] [address]FYSEOFQKPIrvin, [place] [address]Zgv: (HP) [place] [address]RS: (HP) 02/11/2018 Secondary RIGOBERTO G [facility] Insurance:HCAP/CHARIT SPRANGDOB: Three Repository YPolicy Number: [id number] Effective [address] [address] [facility] Date:2017-11-102018-05-13 [place], [place] [address]Wbv: (HP) 02/11/2018 Primary RIGOBERTO G [facility] Insurance:MedicarePol SPRANGDOB: [place] and icy Number: [id number] Angeles County High Desert Hospital [id number] BOX Repository Date:4819-61-84Hyie [address] [place] [address], Name:Romie [place] [address]Gpq: (HP) 02/11/2018 Secondary RIGOBERTO G [facility] Insurance:MedicarePol SPRANGDOB: [place] and icy Number: [id number] [facility] [id number] BOX Repository Date:0905-74-09Rxgu [address] [place] [address], Name:Romie [place] [address]Qjh: () 02/11/2018 Tertiary RIGOBERTO G [facility] Insurance:[facility] SPRANGDOB: [facility] Number: [id number] Hospitals [facility] [id number] BOX Repository ective Date: - [facility]4787-57-80Xjnt [place] [address]Sgs: Name:[place] [address] [facility] () [place], [place] [address]JU: 01/26/2018 RIGOBERTO G Primary RIGOBERTO G [facility] SPRANGDOB: Insurance:MEDICAREPol SPRANGDOB: Three Repository [id number] BOX icy Number: [id number] [facility] [id number] [address] [address] [facility] Date:3703-95-63SZQ FIRST [place] [address]Uuf: J15 PART A [facility] [address] [address]BPECFXHNF, [place], [place] [address]Yxs: () [place] [address]BS: (HP) 01/24/2018 RIGOBERTO G Primary RIGOBERTO G [place] [id number] E Insurance:MEDICARE SPRANGDOB: [facility] BOX PART A BPolic [id number], Number: Repository [place] [address]Awg: [id number] Date:2018-01-24 (HP) 01/24/2018 Secondary NOT GIVENUNK [place] Insurance:SELF PAY [facility] Number: Effective Repository Date:2018-01-24 01/11/2018 RIGOBERTO G Primary RIGOBERTO G [facility] SPRANGDOB: Insurance:MEDICAREPol SPRANGDOB: Three Repository [id number] BOX icy Number: [id number] [address] [facility] [id number] [address] [address] [facility] Date:5280-36-40NYG FIRST [place], [place] [address]Rus: J15 PART [address] [address]HNUFBKEOW, [place], [place] [address]Tvb: () [place] [address]LC: () 01/11/2018 RIGOBERTO G Primary RIGOBERTO G [facility] SPRANGDOB: Insurance:MEDICAREPol SPRANGDOB: Three Repository [id number] BOX icy Number: [id number] [address] [facility] [id number] [address] [address] [facility] Date:4341-06-63RNO [facility] [place], [place] [address]Qmj: J15 PART [address] [address]DDXLVSEJY, [place], [place] [address]Wnm: () [place] [address]LC: () 01/10/2018 RIGOBERTO G Primary RIGOBERTO G [place] [id number] E Insurance:MEDICARE SPRANGDOB: Formerly [facility] FIRST [facility] BOX PART A [facility] [id number], Number: [place]ository [place] [address]Hqm: [id number] Date:2018-01-10 () 01/10/2018 Secondary NOT GIVENUNK [place] Insurance:SELF PAY [facility] Number: Effective Repository Date:2018-01-10 01/07/2018 RIGOBERTO G Primary RIGOBERTO G [place] [id number] E Insurance:MEDICARE SPRANGDOB: Formerly [facility] FIRST [address] BOX PART A [facility] [id number], Number: Repository [place] [address]Fpl: [id number] Date:2017-11-02 () 01/07/2018 Secondary NOT GIVENUNK [place] Insurance:SELF PAY [facility] Number: Effective Repository Date:2017-12-13 01/04/2018 RIGOBERTO G Primary RIGOBERTO G [facility] SPRANGDOB: Insurance:MEDICAREPol SPRANGDOB: Three Repository 1955P O icy Number: [id number] O BOX [id number] [address] [place] [address], Date:2010-11-26 - [address] [place] [address]Dfc: 2059-48-95YTX J15 [place] [address]Xic: PART A CLAIMSPO BOX (HP) [address]NMSMXGYEO [place] () [address]ZF: 01/04/2018 Secondary RIGOBERTO G [facility] Insurance:MEDICAREPol SPRANGDOB: Three Repository icy Number: [id number] BOX Date:2010-11-26 - [facility], 6094-75-61WPM J15 [place] [address]Vsk: PART A CLAIMSPO [address] [address]UCAZGIWWH, [place] () [address]PI: 01/04/2018 Primary RIGOBERTO G [facility] Insurance:MedicarePol SPRANGDOB: [place] and icy Number: [id number] Hospitals [facility] [id number] BOX Repository Date:5465-64-29Ypqk [address] [place] [address], Name:Romie [place] [address]Kik: () 01/04/2018 Secondary RIGOBERTO G [facility] Insurance:MedicarePol SPRANGDOB: [place] and icy Number: [id number] Hospitals [facility] [id number] BOX Repository Date:3365-58-96Rbcv [address] [place] [address], Name:Rom[place] [address]Zrs: () 01/04/2018 Tertiary RIGOBERTO G [facility] Insurance:Della SPRANGDOB: [place] Ambericy Number: [id number] Hospitals [facility] [id number] BOX Repository ective Date: 1185-50-73Mgen [place] [address]Abb: Name:[place] [address] [address]ana () [place], [place] [address]GM: 12/27/2017 RIGOBERTO G Primary RIGOBERTO G [place] [id number] E Insurance:MEDICARE SPRANGDOB: [facility] FIRST [address] BOX PART A BPolicy [id number], Number: [place]ository [place] [address]Ney: [id number] Date:2017-12-24 () 12/27/2017 Secondary NOT GIVENUNK [place] Insurance:SELF PAY [facility] Number: Effective Repository Date:2017-12-24 12/22/2017 RIGOBERTO G Primary RIGOBERTO G [facility] SPRANGDOB: Insurance:MEDICAREPol SPRANGDOB: Three Repository [id number] BOX icy Number: [id number] [facility] [id number] [address] [address] [facility] Date:0776-95-60RCI FIRST [place], [place] [address]Ysr: J15 PART A [facility] [address] [address]RCMRFMBXB, [place], [place] [address]Hmi: () [place] [address]AK: () 12/22/2017 Primary RIGOBERTO G [facility] Insurance:MedicarePol SPRANGDOB: [place] [facility] Number: [id number] Angeles County High Desert Hospital [id number] BOX Repository Date:2565-47-17Upqz [address] [place] [address], Name:Rom[place] [address]Ccq: () 12/22/2017 Secondary RIGOBERTO G [facility] Insurance:MedicarePol SPRANGDOB: [place] ic Number: [id number] [facility] [id number] BOX Repository Date:4513-80-67Blup [address] [place] [address], Name:Romie [place] [address]Zoy: () 12/22/2017 Tertiary RIGOBERTO G [facility] Insurance:Della SPRANGDOB: [facility] Number: [id number] [facility] [id number] BOX Repository ective Date: [facility]6521-22-82Cxuq [place] [address]Fyd: Name:[place] [address] [facility] () [place] [address]MS: 12/17/2017 Primary RIGOBERTO G [facility] Insurance:MedicarePol SPRANGDOB: [place] icy Number: [id number] [facility] [id number] BOX Repository Date:2911-44-83Ktvj [address] [place] [address], Name:Romie [place] [address]Gyg: () 12/17/2017 Secondary RIGOBERTO G [facility] Insurance:MedicarePol SPRANGDOB: [place] icy Number: [id number] [facility] [id number] BOX Repository Date:6603-32-16Hwzi[address], Name:Romie [place] [address]Oso: () 12/17/2017 RIGOBERTO G Primary RIGOBERTO G [facility] SPRANGDOB: Insurance:MEDICAREPol SPRANGDOB: Three Repository [id number] BOX icy Number: [id number] [facility] [id number] [address] [address] [facility] Date:5976-91-01TZY FIRST [place] [address]Ldb: J15 PART A [facility] [address] [address]XLZHCEXIH, [place], [place] [address]Nzh: () [place] [address]KW: () 12/17/2017 [facility]:HCAP/CHARIT Three Repository YPolicy Number: Effective Date:2017-11-1020172018-05-13 12/13/2017 Primary RIGOBERTO G [facility] Insurance:MedicarePol SPRANGDOB: [place] icy Number: [id number] [facility] [id number] BOX Repository Date:4406-56-67Owhk[address], Name:Rom[place] [address]Jae: () 12/13/2017 Secondary RIGOBERTO G [facility] Insurance:MedicarePol SPRANGDOB: [place] and icy Number: [id number] [facility] [id number] BOX Repository Date:1993-42-98Awqg [address] [place] [address], Name:Romie [place] [address]Eml: () 12/13/2017 RIGOBERTO G Primary RIGOBERTO G [facility] SPRANGDOB: Insurance:MEDICAREPol SPRANGDOB: Three Repository [id number] BOX icy Number: [id number] [address] [id number] [address] [address] [facility] Date:0577-78-96YRN FIRST [place], [place] [address]Ksc: J15 PART A [facility] [address] [address]1471ALRLOGBNI, [place], [place] [address]Bfl: (HP) [place] [address]PX: [phone] (HP) 12/13/2017 Secondary NOT GIVENUNK [facility] Insurance:HCAP/CHARIT Three Repository YPolicy Number: Effective Date:2017-11-102018-05-13 12/10/2017 Primary RIGOBERTO G [facility] Insurance:MedicarePol SPRANGDOB: [place] and icy Number: [id number] [facility] [id number] BOX Repository Date:9489-34-29Vgqm [address] [place] [address], Name:Rom[place] [address]Zvr: () 12/10/2017 Secondary RIGOBERTO G [facility] Insurance:MedicarePol SPRANGDOB: [place] and icy Number: [id number] Angeles County High Desert Hospital [id number] BOX Repository Date:5480-89-91Vjdc [address] [place] [address], Name:[place] [address]Woz: () 12/10/2017 RIGOBERTO G Primary [facility]O [facility] Insurance:MEDICAREPol SPRANGDOB: Three Repository [id number] BOX icy Number: [id number] [facility] [id number] [address] Date:2003-16-89DSC FIRST [place], [place] [address]Xmn: J15 [address] [address]YCFOIGZSS, [place], [place] [address]Xns: (HP) [place] [address]CD: [phone] (HP) 12/10/2017 Secondary NOT GIVENUNK [facility] Insurance:HCAP/CHARIT Three Repository YPolicy Number: Effective Date:2017-11-102018-05-13 12/06/2017 Primary RIGOBERTO G [facility] Insurance:MedicarePol SPRANGDOB: [facility] Number: [id number] Angeles County High Desert Hospital [id number] BOX Repository Date:1998-58-84Fpga [address] [place] [address], Name:Rom[place] [address]Axv: () 12/06/2017 Secondary RIGOBERTO G [facility] Insurance:MedicarePol SPRANGDOB: [place] [facility] Number: [id number] Angeles County High Desert Hospital [id number] BOX Repository Date:0542-15-56Oxon[address], Name:[place] [address]Gex: () 12/06/2017 RIGOBERTO G Primary RIGOBERTO G [facility] SPRANGDOB: Insurance:MEDICAREPol SPRANGDOB: Three Repository [id number] BOX icy Number: [id number] [facility] [id number] [address] [address] [address] Date:5415-65-95HVG FIRST [place], [place] [address]Wuf: J15 [address] [address]PMZUSTRJF, [place], [place] [address]Yjw: (HP) [place] [address]JO: [phone] (HP) 12/06/2017 Secondary NOT GIVENUNK [facility] Insurance:HCAP/CHARIT Three Repository YPolicy Number: Effective Date:2017-11-102018-05-13 12/01/2017 Primary RIGOBERTO G [facility] Insurance:MedicarePol SPRANGDOB: [place] icy Number: [id number] Angeles County High Desert Hospital [id number] BOX Repository Date:1732-82-00Cfsi [address] [place] [address], Name:Romie [place] [address]Tos: (HP) 12/01/2017 Secondary RIGOBERTO G [facility] Insurance:MedicarePol SPRANGDOB: [place] icy Number: [id number] [facility] [id number] BOX Repository Date:7665-96-39Vqiv [address] [place] [address], Name:Rom[place] [address]Iqh: (HP) 12/01/2017 RIGOBERTO G [facility]:MEDICAREPol SPRANGDOB: Three Repository [id number] BOX icy Number: [id number] [address] [id number] [address] Date:6995-44-75HXP FIRST [place], [place] [address]Ahp: J15 [address] [address]BAUSEJMMW, [place], [place] [address]Nxt: (HP) [place] [address]NB: (HP) 12/01/2017 Secondary NOT GIVENUNK [facility] Insurance:HCAP/CHARIT Three Repository YPolicy Number: Effective Date:2017-11-102018-05-13 11/29/2017 RIGOBERTO G Primary [facility]O [facility]:MEDICAREPol SPRANGDOB: Three Repository [id number] BOX icy Number: [id number] [address] [id number] [address] Date:2931-43-64DBB [place], [place] [address]Skz: J15 [address] [address]LTPZHNJUZ, [place], [place] [address]Ljw: (HP) [place] [address]JU: (HP) 11/26/2017 RIGOBERTO G Primary R[facility]OBERTO G [facility]: Insurance:MEDICAREPol SPRANGDOB: Three Repository [id number] BOX icy Number: [id number] [address] [id number] [address] Date:5004-86-00FZH [place], [place] [address]Jnm: J15 [address] [address]QVWBNCGQG, [place], [place] [address]Mgh: (HP) [place] [address]VW: (HP) 11/26/2017 Primary RIGOBERTO G [facility] Insurance:MedicarePol [facility] DAMANGDOB: [place] icy Number: [id number] [facility] [id number] BOX Repository Date:1434-31-26Wukh [address] [place] [address], Name:Rom[place] [address]Cou: () 11/26/2017 Secondary RIGOBERTO G [facility] Insurance:MedicarePol [facility] DAMANGDOB: [place] and icy Number: [id number] [facility] County [facility] Desert Hospital [id number] BOX Repository Date:3075-20-46Qjng [address] [place] [address], Name:Rom[place] [address]Dvw: () 11/26/2017 RIGOBERTO G Primary RIGOBERTO G [facility]: Insurance:MEDICAREPol SPRANGDOB: Three Repository [id number] BOX icy Number: [id number] [address] [id number] [address] Date:1055-57-17QAH FIRST [place], [place] [address]Gxt: J15 [address] [address]CAOAZJGIR, [place], [place] [address]Ice: (HP) [place] [address]YW: (HP) 11/26/2017 Secondary NOT GIVENUNK [facility] Insurance:HCAP/CHARIT Three Repository YPolicy Number: Effective Date:2017-11-10 - 2018-05-13 11/24/2017 RIGOBERTO G Primary RIGOBERTO G [facility] SPRANGDOB: Insurance:MEDICAREPol SPRANGDOB: Three Repository [id number] BOX icy Number: [id number] [facility] [id number] [address] [address] [facility] Date:8555-98-72CTF FIRST [place], [place] [address]Dbm: J15 PART A [facility] [address] [address]ZFQXRFQZR, [place], [place] [address]Kuz: (HP) [place] [address]YV: (HP) 11/24/2017 Primary RIGOBERTO G [facility] Insurance:MedicarePol SPRANGDOB: [place] and icy Number: [id number] Hospitals [facility] [id number] BOX Repository Date:6347-72-93Akto [address] [place] [address], Name:Rom[place] [address]Mzk: () 11/24/2017 Secondary RIGOBERTO G [facility] Insurance:MedicarePol SPRANGDOB: [place] icy Number: [id number] Hospitals [facility] [id number] BOX Repository Date:5751-71-40Zwoe [address] [place] [address], Name:Romie [place] [address]Hpz: () 11/24/2017 Tertiary RIGOBERTO G [facility] Insurance:Della SPRANGDOB: Ticoicy Number: [id number] Hospitals [facility] [id number] BOX Repository ective Date: - [facility]9943-17-61Rzvz [place] [address]Kkj: Name:[place] [address] [address]ana () [place], [place] [address]IH: 11/24/2017 RIGOBERTO G Primary RIGOBERTO G [facility] SPRANGDOB: Insurance:MEDICAREPol SPRANGDOB: Three Repository [id number] BOX icy Number: [id number] [facility] [id number] [address] Date:6268-06-92QHK FIRST [place], [place] [address]Str: J15 PART [address] [address]VZCTPJOEQ, [place], [place] [address]Qgx: (HP) [place] [address]NU: [phone] (HP) 11/24/2017 Secondary NOT GIVENUNK [facility] Insurance:HCAP/CHARIT Three Repository YPolicy Number: Effective Date:2017-11-102018-05-13 11/23/2017 Primary RIGOBERTO G [facility] Insurance:MedicarePol SPRANGDOB: [place] [facility] Number: [id number] [facility] [id number] BOX Repository Date:5694-52-59Cama[address], Name:Romie [place] [address]Nfe: () 11/23/2017 Secondary RIGOBERTO G [facility] Insurance:MedicarePol SPRANGDOB: [place] [facility] Number: [id number] [facility] [id number] BOX Repository Date:1695-20-57Dahp[address], Name:Rom[place] [address]Dyi: () 11/23/2017 RIGOBERTO G Primary RIGOBERTO G [facility] SPRANGDOB: Insurance:MEDICAREPol SPRANGDOB: Three Repository [id number] BOX icy Number: [id number] [facility] [id number] [address] Date:4082-13-69QXR FIRST [place], [place] [address]Akj: J15 [address] [address]DANGUMZXX, [place], [place] [address]Gah: (HP) [place] [address]AJ: [phone] (HP) 11/23/2017 Secondary NOT GIVENUNK [facility] Insurance:HCAP/CHARIT Three Repository YPolicy Number: Effective Date:2017-11-10 - 2018-05-13 11/20/2017 Primary RIGOBERTO G [facility] Insurance:MedicarePol SPRANGDOB: [place] and icy Number: [id number] Angeles County High Desert Hospital [id number] BOX Repository Date:9346-02-61Vsgf [address] [place] [address], Name:Romie AVALOS [address]Iis: (HP) 11/20/2017 Secondary RIGOBERTO G [facility] Insurance:MedicarePol SPRANGDOB: [place] icy Number: [id number] [facility] [id number] BOX Repository Date:3261-76-72Sywb [address] [place] [address], Name:Rom[place] [address]Lhl: (HP) 11/20/2017 RIGOBERTO G Primary RIGOBERTO G [facility] SPRANGDOB: Insurance:MEDICAREPol SPRANGDOB: Three Repository [id number] BOX icy Number: [id number] [facility] [id number] [address] [address] [facility] Date:9982-90-77RIW [place], [place] [address]Acr: J15 PART A [facility] [address] [address]RNWKOXACB, [place], [place] [address]Xla: (HP) [place] [address]CX: (HP) 11/20/2017 Secondary [facility]:HCAP/CHARIT Three Repository YPolicy Number: Effective Date:2017-11-10 - 2018-05-13 11/19/2017 Primary RIGOBERTO G [facility] Insurance:MedicarePol SPRANGDOB: [place] and icy Number: [id number] [facility] [id number] BOX Repository Date:8795-67-35Jsgk [address] [place] [address], Name:Romie [place] [address]Bei: (HP) 11/19/2017 Secondary RIGOBERTO G [facility] Insurance:MedicarePol SPRANGDOB: [place] and icy Number: [id number] [facility] [id number] BOX Repository Date:8711-11-07Wouq [address] [place] [address], Name:Romie [place] [address]Avp: () 11/19/2017 RIGOBERTO G Primary RIGOBERTO G [facility] SPRANGDOB: Insurance:MEDICAREPol SPRANGDOB: Three Repository [id number] BOX icy Number: [id number] [id number] [address] [facility] Date:7984-42-29[place]I [place], [place] [address]Mum: J15 [address] [address], [place], [place] [address]Gda: (HP) [place] [address]SH: (HP) 11/19/2017 Secondary NOT GIVENUNK [facility] Insurance:HCAP/CHARIT Three Repository YPolicy Number: Effective Date:2017-11-102018-05-13 11/18/2017 Primary RIGOBERTO G [facility] Insurance:MedicarePol SPRANGDOB: [place] and icy Number: [id number] [facility] [id number] BOX Repository Date:9914-87-13Qzgm [address] [place] [address], Name:Romie [place] [address]Efj: () 11/18/2017 Secondary RIGOBERTO G [facility] Insurance:MedicarePol [facility] DAMANGDOB: [place] and icy Number: [id number] [facility] [id number] BOX Repository Date:[id number] [address] [place] [address], Name:Romie [place] [address]Wto: () 11/18/2017 RIGOBERTO G [facility]MEDICAREPol SPRANGDOB: Three Repository [id number] BOX icy Number: [id number] [id number] [address] [address] [facility] Date:5055-90-69CYO FIRST [place], [place] [address]Egu: J15 [address] [address]MSBJLATIF, [place], [place] [address]Leb: (HP) [place] [address]MM: (HP) 11/18/2017 Secondary NOT GIVENUNK [facility] Insurance:HCAP/CHARIT Three Repository YPolicy Number: Effective Date:2017-11-10 - 2018-05-13 11/17/2017 RIGOBERTO G Primary RIGOBERTO G [facility] SPRANGDOB: Insurance:MEDICAREPol SPRANGDOB: Three Repository [id number] BOX icy Number: [id number] [facility] [id number] [address] [address] [facility] Date:9015-68-49VMZ [place], [place] [address]Kzm: J15 PART A [facility] [address] [address]ZHXTUGWHJIrvin, [place] [address]Bbf: (HP) [place] [address]YS: (HP) 11/17/2017 Primary RIGOBERTO G [facility] Insurance:MedicarePol SPRANGDOB: Branden and icy Number: [id number] [facility] [id number] BOX Repository Date:0777-55-70Slav [facility], Name:Romie [place] [address]Bcy: () 11/17/2017 Secondary RIGOBERTO G [facility] Insurance:MedicarePol SPRANGDOB: Branden and ic Number: [id number] [facility] [id number] BOX Repository Date:7152-74-01Sgux [address] [place] [address], Name:Romie [place] [address]Cct: (HP) 11/17/2017 Tertiary RIGOBERTO G [facility] Insurance:Della SPRANGDOB: Branden and Sarah Number: [id number] Angeles County High Desert Hospital [id number] BOX Repository ective Date: [facility]7921-09-17[place] [address]Ddq: Name:[place] [address] [address] () [place], [place] [address]IV: 11/17/2017 RIGOBERTO G Primary [facility] Insurance:MEDICAREPol SPRANGDOB: Three Repository [id number] BOX icy Number: [id number] [facility] [id number] [address] [address] [facility] Date:1750-18-73PTD [place], [place] [address]Obb: J15 PART A [address] [address]NOHZGYRZC, [place], [place] [address]Kso: (HP) [place] [address]WO: [phone] (HP) 11/17/2017 Secondary NOT GIVENUNK [facility] Insurance:HCAP/CHARIT Three Repository YPolicy Number: Effective Date:2017-11-102018-05-13 11/16/2017 Primary RIGOBERTO G [facility] Insurance:MedicarePol SPRANGDOB: [place] and icy Number: [id number] [facility] [id number] BOX Repository Date:Plan Name:[address] [place] [address]Jiu: () 11/16/2017 Secondary RIGOBERTO G [facility] Insurance:MedicarePol SPRANGDOB: [place] and icy Number: [id number] [facility] [id number] BOX Repository Date:Plan Name:[address] [place] [address]Srl: () 11/16/2017 RIGOBERTO G [facility] Insurance:MEDICAREPol [facility] Repository [id number] BOX icy Number: [id number] [facility] [id number] [address] [address] [facility] Date:2701-41-00YDB [place], [place] [address]Aea: J15 PART A [address] [address]GZQCNLGEQ, [place], [place] [address]Gyq: (HP) [place] [address]LB: (HP) 11/16/2017 Secondary NOT GIVENUNK [facility] Insurance:HCAP/CHARIT Three Repository YPolicy Number: Effective Date:2017-11-102018-05-13 11/15/2017 Primary RIGOBERTO G [facility] Insurance:MedicarePol SPRANGDOB: [place] and icy Number: [id number] [facility] [id number] BOX Repository Date:Plan Name:[place] [address]Zlk: () 11/15/2017 Secondary RIGOBERTO G [facility] Insurance:MedicarePol SPRANGDOB: [place] and icy Number: [id number] Hospitals Samar[facility] [id number] BOX Repository Date:Plan Name:[place] [address]Jrf: () 11/15/2017 RIGOBERTO G Primary RIGOBERTO G [facility] SPRANGDOB: Insurance:MEDICAREPol SPRANGDOB: Three Repository [id number] BOX icy Number: [id number] [facility] [id number] [address] [address] [address] Date:3633-34-67FSV [facility] [place], [place] [address]Uwb: J15 PART A [address] [address]HBBQJAPIW, [place], [place] [address]Ygt: () [place] [address]MG: (HP) 11/15/2017 Secondary NOT GIVENUNK [facility] Insurance:HCAP/CHARIT Three Repository YPolicy Number: Effective Date:2017-11-1020172018-05-13 11/14/2017 RIGOBERTO G Primary RIGOBERTO G [facility] SPRANGDOB: Insurance:MEDICAREPol SPRANGDOB: Three Repository [id number] BOX icy Number: [id number] [facility] [id number] [address] [address] [address] Date:8909-15-30ITQ [place], [place] [address]Jge: J15 PART [address] [address]ANFYXNKAX, [place], [place] [address]Ygm: (HP) [place] [address]ZR: (HP) 11/10/2017 RIGOEBRTO G Primary RIGOBERTO G [facility] SPRANGDOB: Insurance:MEDICAREPol SPRANGDOB: Three Repository [id number] BOX icy Number: [id number] [facility] [id number] [address] [address] [facility] Date:2509-55-81OAN [facility] [place], [place] [address]Zso: J15 PART A [facility] [address] [address]EPXVZWIJX, [place], [place] [address]Map: (HP) [place] [address]XH: (HP) 11/10/2017 Primary RIGOBERTO G [facility] Insurance:MedicarePol SPRANGDOB: Branden and heike Number: [id number] Hospitals Samaritan Medical Center [id number] BOX Repository Date:1541-84-99Gqex [address] [place] [address], Name:Romie [place] [address]Wqs: () 11/10/2017 Secondary RIGOBERTO G [facility] Insurance:MedicarePol SPRANGDOB: Branden and heike Number: [id number] [facility] [id number] BOX Repository Date:7425-45-36Gfiy [address] [place] [address], Name:Rom[place] [address]Syn: () 11/10/2017 Tertiary RIGOBERTO G [facility] Insurance:Della SPRANGDOB: [place] Number: [id number] Hospitals Samaritan Medical Center [id number] BOX Repository ective Date: 2834-17-28Tavn [place] [address]Rnr: Name:[place] [address] Romana () [place] [address]KC: 11/05/2017 Primary RIGOBERTO G [facility] Insurance:MedicarePol SPRANGDOB: Branden and icy Number: [id number] O [facility] [id number] BOX Repository Date:Plan Name:[place] [address]Qzv: (HP) 11/05/2017 Secondary RIGOBERTO G [facility] Insurance:MedicarePol SPRANGDOB: [place] and icy Number: [id number] [facility] [id number] BOX Repository Date:Plan Name:[place] [address]Hqz: (HP) 10/27/2017 RIGOBERTO G Primary RIGOBERTO G [facility] SPRANGDOB: Insurance:MEDICAREPol SPRANGDOB: Three Repository [id number] BOX icy Number: [id number] [facility] [id number] [address] [address] [facility] Date:9997-73-86TPS [place], [place] [address]Pia: J15 PART A [facility]ETOAS[facility] HOSPITALRYSELECT [facility] [address] [address]BNIGHAYBC, [place], [place] [address]Nhb: (HP) [place] [address]YZ: [phone] (HP) 10/21/2017 RIGOBERTO G Primary RIGOBERTO G [facility] SPRANGDOB: Insurance:MEDICAREPol SPRANGDOB: Three Repository E icy Number: [id number] [address] [id number] [address] [place] [address], Date:3315-57-48BCA [place]OX [place] [address]Bob: J15 PART A CLAIMSPO [address] [place] [address], [address] [address]KUXLGEQFS, [place] [address]Mct: (HP) [place] [address]NJ: (HP) 10/21/2017 RIGOBERTO G Primary RIGOBERTO G [facility] SPRANGDOB: Insurance:MEDICAREPol SPRANGDOB: Three Repository [id number] BOX icy Number: [id number] [facility] [id number] [address] [address] [facility] Date:7871-70-14EKX [place], [place] [address]Zvz: 15 PART A [facility] [address] [address]MMVPLRUDD, [place], [place] [address]Zur: (HP) [place] [address]KV: (HP) 10/21/2017 Primary RIGOBERTO G [facility] Insurance:MedicarePol SPRANGDOB: [place] [facility] Number: [id number] Angeles County High Desert Hospital [id number] BOX Repository Date:Plan Name:[place] [address]Yyc: () 10/21/2017 Secondary RIGOBERTO G [facility] Insurance:MedicarePol SPRANGDOB: [facility] Number: [id number] [facility] [id number] BOX Repository Date:Plan [facility] [place] [address]Rxd: () 10/21/2017 Primary [facility] Insurance:MedicarePol SPRANGDOB: [facility] Number: [id number] [facility] County [facility] [id number] BOX Repository Date:Plan Name:[place] [address]Zno: () 10/21/2017 Secondary [facility]O G [facility] Insurance:MedicarePol SPRANGDOB: [facility] Number: [id number] [facility] [id number] BOX Repository Date:Plan Name:[place] [address]Ter: () 10/11/2017 RIGOBERTO G Primary RIGOBERTO G [place] [id number] Insurance:MEDICARE SPRANGDOB: [facility] BOX PART A [facility] [id number], Number: Repository [place] [address]Wci: [id number] Date:2017-09-30 () 10/11/2017 Secondary NOT GIVENUNK [place] Insurance:SELF PAY [facility] Number: Effective Repository Date:2017-09-30 10/11/2017 RIGOBERTO G Primary RIGOBERTO G [place] [id number] Insurance:MEDICARE SPRANGDOB: Community FIRST STPO BOX PART A [facility] [id number], Number: Repository [place] [address]Ref: [id number] Date:2017-09-30 () 10/11/2017 Secondary NOT GIVENUNK [place] Insurance:SELF PAY [facility] Number: Effective Repository Date:2017-10-11 10/04/2017 RIGOBERTO G Primary RIGOBERTO G [place] [id number] Insurance:MEDICARE SPRANGDOB: Community FIRST STPO BOX PART A [facility] [id number], Number: [place]ository [place] [address]Udx: [id number] Date:2017-09-30 () 10/04/2017 Secondary NOT GIVENUNK [place] Insurance:SELF PAY [facility] Number: Effective Repository Date:2017-10-04 10/04/2017 RIGOBERTO G Primary RIGOBERTO G [place] [id number] E Insurance:MEDICARE SPRANGDOB: Community FIRST STPO BOX PART A [facility] [id number], Number: Repository [place] [address]Sxq: [id number] Date:2017-10-04 () 10/04/2017 Secondary NOT GIVENUNK [place] Insurance:SELF PAY [facility] Number: Effective Repository Date:2017-10-04 09/27/2017 RIGOBERTO G Primary RIGOBERTO G [place] [id number] E Insurance:MEDICARE SPRANGDOB: Community FIRST STPO BOX PART A [facility] [id number], Number: Repository [place] [address]Rdj: [id number] Date:2017-09-22 () 09/27/2017 Secondary NOT GIVENUNK [place] Insurance:SELF PAY [facility] Number: Effective Repository Date:2017-09-22 09/27/2017 RIGOBERTO G Primary RIGOBERTO G [place] [id number] E Insurance:MEDICARE SPRANGDOB: Community FIRST STPO BOX PART A [facility] [id number], Number: [place]ository [place] [address]Ilk: [id number] Date:2017-09-22 () 09/27/2017 Secondary NOT GIVENUNK [place] Insurance:SELF PAY [facility] Number: Effective Repository Date:2017-09-27 09/22/2017 RIGOBERTO G SPRANGPO Primary RIGOBERTO G [place] BOX Insurance:MEDICARE SPRANGDOB: [address], PART A [facility] [id number] Medical Center-[facility] [address]Olq: Number: Repository [id number] () Date:2017-06-07 09/22/2017 Secondary NOT GIVENUNK [place] Insurance:SELF PAY [facility] Number: Effective Repository Date:2017-06-07
== END 2018-06-13 11:05 | disposition home or self-care (01) ==
LOC: LAB 10:05
PROVIDERS: Referring Provider Internal Medicine Cardiovascular Disease; Visit Provider Internal Medicine Cardiovascular Disease
DX: Z95.2 Presence of prosthetic heart valve (principal); Z79.01 Long term (current) use of anticoagulants
CPT/HCPCS: 36415; 85610

== ENCOUNTER 2018-07-25 09:20 | Outpatient (RCR) | payer MEDICARE, SELFPAY ==
[2018-06-27 16:30] VITALS: BMI 36.3
[2018-07-11 10:28] LABS: International Normalized Ratio 1.8; Prothrombin Time (Protime)PT. 21.1 SECONDS (11.7-14.9)
[2018-07-25 09:45] LABS: International Normalized Ratio 1.7
== END 2018-07-25 11:00 | disposition home or self-care (01) ==
LOC: LAB 09:20
PROVIDERS: Referring Provider Internal Medicine Cardiovascular Disease; Visit Provider Internal Medicine Cardiovascular Disease
DX: Z95.2 Presence of prosthetic heart valve (principal); Z79.01 Long term (current) use of anticoagulants
CPT/HCPCS: 36415; 85610

== ENCOUNTER 2018-08-22 11:13 | Outpatient (RCR) | payer MEDICARE, SELFPAY ==
[2018-07-29 08:08] VITALS: BMI 35.7
[2018-08-08 10:35] LABS: International Normalized Ratio 1.7; Prothrombin Time (Protime)PT. 20.3 SECONDS (11.7-14.9)
[2018-08-22 11:57] LABS: International Normalized Ratio 1.9
== END 2018-08-25 14:51 | disposition home or self-care (01) ==
LOC: LAB 11:13
PROVIDERS: Referring Provider Internal Medicine Cardiovascular Disease; Visit Provider Internal Medicine Cardiovascular Disease
DX: Z95.2 Presence of prosthetic heart valve (principal); Z79.01 Long term (current) use of anticoagulants
CPT/HCPCS: 36415; 85610

== ENCOUNTER 2018-09-19 10:02 | Outpatient (RCR) | payer MEDICARE, SELFPAY ==
[2018-07-29 08:08] VITALS: BMI 35.7
[2018-09-05 11:30] LABS: International Normalized Ratio 2.2; Prothrombin Time (Protime)PT. 24.4 SECONDS (11.7-14.9)
[2018-09-19 11:19] LABS: International Normalized Ratio 2.2
== END 2018-09-19 11:02 | disposition home or self-care (01) ==
LOC: LAB 10:02
PROVIDERS: Referring Provider Internal Medicine Cardiovascular Disease; Visit Provider Internal Medicine Cardiovascular Disease
DX: Z95.2 Presence of prosthetic heart valve (principal); Z79.01 Long term (current) use of anticoagulants
CPT/HCPCS: 36415; 85610

== ENCOUNTER 2018-10-24 09:56 | Outpatient (RCR) | payer MEDICARE, SELFPAY ==
[2018-07-29 08:08] VITALS: BMI 35.7
[2018-10-03 11:52] LABS: International Normalized Ratio 2.2; Prothrombin Time (Protime)PT. 24.8 SECONDS (11.7-14.9)
[2018-10-24 11:11] LABS: International Normalized Ratio 2.6; Prothrombin Time (Protime)PT. 27.5 SECONDS (11.7-14.9)
== END 2018-10-25 16:00 | disposition home or self-care (01) ==
LOC: LAB 09:56
PROVIDERS: Referring Provider Internal Medicine Cardiovascular Disease; Visit Provider Internal Medicine Cardiovascular Disease
DX: Z95.2 Presence of prosthetic heart valve (principal); Z79.01 Long term (current) use of anticoagulants
CPT/HCPCS: 36415; 85610

== ENCOUNTER 2018-11-14 10:49 | Outpatient (RCR) | payer MEDICARE, SELFPAY ==
[2018-10-26 13:33] VITALS: BMI 35.7
[2018-11-14 12:51] LABS: International Normalized Ratio 2.5
== END 2018-11-14 11:49 | disposition home or self-care (01) ==
LOC: LAB 10:49
PROVIDERS: Referring Provider Internal Medicine Cardiovascular Disease; Visit Provider Internal Medicine Cardiovascular Disease
DX: Z95.2 Presence of prosthetic heart valve (principal); Z79.01 Long term (current) use of anticoagulants
CPT/HCPCS: 36415; 85610

== ENCOUNTER 2018-12-02 09:48 | Outpatient (RCR) | payer MEDICARE, SELFPAY ==
[2018-11-26 10:21] VITALS: BMI 35.9
[2018-12-02 11:06] LABS: International Normalized Ratio 2.2; Prothrombin Time (Protime)PT. 24.8 SECONDS (11.7-14.9)
== END 2018-12-25 12:00 | disposition home or self-care (01) ==
LOC: LAB 09:48
PROVIDERS: Referring Provider Internal Medicine Cardiovascular Disease; Visit Provider Internal Medicine Cardiovascular Disease
DX: I50.42 Chronic combined systolic (congestive) and diastolic (congestive) heart failure (principal); I48.0 Paroxysmal atrial fibrillation; I25.10 Atherosclerotic heart disease of native coronary artery without angina pectoris; E78.5 Hyperlipidemia, unspecified; I43 Cardiomyopathy in diseases classified elsewhere; I35.0 Nonrheumatic aortic (valve) stenosis; Z95.1 Presence of aortocoronary bypass graft; Z95.2 Presence of prosthetic heart valve; Z79.01 Long term (current) use of anticoagulants
CPT/HCPCS: 36415; 85610

== ENCOUNTER 2018-12-30 09:27 | Outpatient (RCR) | payer MEDICARE, SELFPAY ==
[2018-11-26 10:21] VITALS: BMI 35.9
[2018-12-30 10:39] LABS: International Normalized Ratio 2.8
== END 2019-01-25 16:25 | disposition home or self-care (01) ==
LOC: LAB 09:27
PROVIDERS: Referring Provider Internal Medicine Cardiovascular Disease; Visit Provider Internal Medicine Cardiovascular Disease
DX: I50.42 Chronic combined systolic (congestive) and diastolic (congestive) heart failure (principal); I48.0 Paroxysmal atrial fibrillation; I25.10 Atherosclerotic heart disease of native coronary artery without angina pectoris; E78.5 Hyperlipidemia, unspecified; I43 Cardiomyopathy in diseases classified elsewhere; I35.0 Nonrheumatic aortic (valve) stenosis; Z95.1 Presence of aortocoronary bypass graft; Z95.2 Presence of prosthetic heart valve; Z79.01 Long term (current) use of anticoagulants
CPT/HCPCS: 36415; 85610

== ENCOUNTER → 2019-01-10 | Outpatient (CLI) | payer MEDICARE, SELFPAY ==
[2019-01-10 11:42] VITALS: BMI 34.8
--- NOTE | 2019-01-10 14:09 | RAD_ITS ---
STUDY: X-RAY CHEST REASON FOR EXAM: Male, 63 years old. Pleural effusion TECHNIQUE: PA and lateral views of the chest. COMPARISON: Previous study of October 04, 2017 FINDINGS: There is a unipolar left-sided pacemaker. There is a poor inspiration. There is no demonstrated pleural abnormality. The heart size is within normal limits. Status post CABG changes are noted. Normal mediastinum and merrick. Normal visualized pulmonary arteries. There are calcified plaques of the aortic arch. There are diffuse degenerative changes of the visualized thoracic spine. Normal visualized ribs, clavicles, and shoulders. A fusion plate is seen overlying the lower cervical area. There is no demonstrated abnormality of the visualized soft tissue structures of the upper abdomen. RAD/Chest PA and Lateral IMPRESSION: 1. Status post CABG. 2. Unipolar left-sided pacemaker. 3. Poor inspiration. 4. Degenerative changes of the thoracic spine. 5. No acute cardiopulmonary disease process is seen. There is no pleural effusion. Electronically Signed: Gerson Dunaway MD at 17:34 EDT , Service support ,
== END | disposition home or self-care (01) ==
LOC: RAD 14:09
PROVIDERS: Referring Provider Internal Medicine Cardiovascular Disease; Visit Provider Internal Medicine Cardiovascular Disease
DX: I50.42 Chronic combined systolic (congestive) and diastolic (congestive) heart failure (principal)
CPT/HCPCS: 71046

== ENCOUNTER 2019-01-27 09:21 | Outpatient (RCR) | payer MEDICARE, SELFPAY ==
[2019-01-10 11:42] VITALS: BMI 34.8
[2019-01-27 10:07] LABS: International Normalized Ratio 2.6; Prothrombin Time (Protime)PT. 27.8 SECONDS (11.7-14.9)
== END 2019-01-27 10:21 | disposition home or self-care (01) ==
LOC: LAB 09:21
PROVIDERS: Referring Provider Internal Medicine Cardiovascular Disease; Visit Provider Internal Medicine Cardiovascular Disease
DX: I50.42 Chronic combined systolic (congestive) and diastolic (congestive) heart failure (principal); I48.0 Paroxysmal atrial fibrillation; I25.10 Atherosclerotic heart disease of native coronary artery without angina pectoris; E78.5 Hyperlipidemia, unspecified; I43 Cardiomyopathy in diseases classified elsewhere; I35.0 Nonrheumatic aortic (valve) stenosis; Z95.1 Presence of aortocoronary bypass graft; Z95.2 Presence of prosthetic heart valve; Z79.01 Long term (current) use of anticoagulants
CPT/HCPCS: 36415; 85610

== ENCOUNTER 2019-02-28 08:35 | Outpatient (RCR) | payer MEDICARE, SELFPAY ==
[2019-02-17 14:29] VITALS: BMI 34.9
[2019-02-28 09:35] LABS: International Normalized Ratio 2.3; Prothrombin Time (Protime)PT. 25.1 SECONDS (11.7-14.9)
== END 2019-03-27 18:00 | disposition home or self-care (01) ==
LOC: LAB 08:35
PROVIDERS: Referring Provider Internal Medicine Cardiovascular Disease; Visit Provider Internal Medicine Cardiovascular Disease
DX: I50.42 Chronic combined systolic (congestive) and diastolic (congestive) heart failure (principal); I48.0 Paroxysmal atrial fibrillation; I25.10 Atherosclerotic heart disease of native coronary artery without angina pectoris; E78.5 Hyperlipidemia, unspecified; I43 Cardiomyopathy in diseases classified elsewhere; I35.0 Nonrheumatic aortic (valve) stenosis; Z95.1 Presence of aortocoronary bypass graft; Z95.2 Presence of prosthetic heart valve; Z79.01 Long term (current) use of anticoagulants
CPT/HCPCS: 36415; 85610

== ENCOUNTER 2019-04-24 09:31 | Outpatient (RCR) | payer MEDICARE, SELFPAY ==
[2019-02-17 14:29] VITALS: BMI 34.9
[2019-03-28 10:44] LABS: International Normalized Ratio 2.7; Prothrombin Time (Protime)PT. 28.7 SECONDS (11.7-14.9)
[2019-04-24 10:56] LABS: International Normalized Ratio 2.1; Prothrombin Time (Protime)PT. 23.7 SECONDS (11.7-14.9)
== END 2019-04-24 18:00 | disposition home or self-care (01) ==
LOC: LAB 09:31
PROVIDERS: Referring Provider Internal Medicine Cardiovascular Disease; Visit Provider Internal Medicine Cardiovascular Disease
DX: I50.42 Chronic combined systolic (congestive) and diastolic (congestive) heart failure (principal); I48.0 Paroxysmal atrial fibrillation; I25.10 Atherosclerotic heart disease of native coronary artery without angina pectoris; E78.5 Hyperlipidemia, unspecified; I43 Cardiomyopathy in diseases classified elsewhere; I35.0 Nonrheumatic aortic (valve) stenosis; Z95.1 Presence of aortocoronary bypass graft; Z95.2 Presence of prosthetic heart valve; Z79.01 Long term (current) use of anticoagulants
CPT/HCPCS: 36415; 85610

== ENCOUNTER 2019-05-22 09:04 | Outpatient (RCR) | payer MEDICARE, SELFPAY ==
[2019-02-17 14:29] VITALS: BMI 34.9
[2019-05-11 08:13] VITALS: BMI 35.4
[2019-05-22 10:52] LABS: International Normalized Ratio 2.4; Prothrombin Time (Protime)PT. 26.1 SECONDS (11.7-14.9)
== END 2019-05-22 18:00 | disposition home or self-care (01) ==
LOC: LAB 09:04
PROVIDERS: Referring Provider Internal Medicine Cardiovascular Disease; Visit Provider Internal Medicine Cardiovascular Disease
DX: I50.42 Chronic combined systolic (congestive) and diastolic (congestive) heart failure (principal); I48.0 Paroxysmal atrial fibrillation; I25.10 Atherosclerotic heart disease of native coronary artery without angina pectoris; E78.5 Hyperlipidemia, unspecified; I43 Cardiomyopathy in diseases classified elsewhere; I35.0 Nonrheumatic aortic (valve) stenosis; Z95.1 Presence of aortocoronary bypass graft; Z95.2 Presence of prosthetic heart valve; Z79.01 Long term (current) use of anticoagulants
CPT/HCPCS: 36415; 85610

== ENCOUNTER 2019-06-16 09:26 | Outpatient (RCR) | payer MEDICARE, SELFPAY ==
[2019-05-11 08:13] VITALS: BMI 35.4
[2019-06-16 10:25] LABS: International Normalized Ratio 2.1; Prothrombin Time (Protime)PT. 23.9 SECONDS (11.7-14.9)
== END 2019-06-16 18:00 | disposition home or self-care (01) ==
LOC: LAB 09:26
PROVIDERS: Referring Provider Internal Medicine Cardiovascular Disease; Visit Provider Internal Medicine Cardiovascular Disease
DX: I50.42 Chronic combined systolic (congestive) and diastolic (congestive) heart failure (principal); I48.0 Paroxysmal atrial fibrillation; I25.10 Atherosclerotic heart disease of native coronary artery without angina pectoris; E78.5 Hyperlipidemia, unspecified; I43 Cardiomyopathy in diseases classified elsewhere; I35.0 Nonrheumatic aortic (valve) stenosis; Z95.1 Presence of aortocoronary bypass graft; Z95.2 Presence of prosthetic heart valve; Z79.01 Long term (current) use of anticoagulants
CPT/HCPCS: 36415; 85610

== ENCOUNTER 2019-07-14 08:25 | Outpatient (RCR) | payer MEDICARE, SELFPAY ==
[2019-05-11 08:13] VITALS: BMI 35.4
[2019-07-14 08:58] LABS: International Normalized Ratio 2.1; Prothrombin Time (Protime)PT. 23.7 SECONDS (11.7-14.9)
== END 2019-07-14 18:00 | disposition home or self-care (01) ==
LOC: LAB 08:25
PROVIDERS: Referring Provider Internal Medicine Cardiovascular Disease; Visit Provider Internal Medicine Cardiovascular Disease
DX: I50.42 Chronic combined systolic (congestive) and diastolic (congestive) heart failure (principal); I48.0 Paroxysmal atrial fibrillation; I25.10 Atherosclerotic heart disease of native coronary artery without angina pectoris; E78.5 Hyperlipidemia, unspecified; I43 Cardiomyopathy in diseases classified elsewhere; I35.0 Nonrheumatic aortic (valve) stenosis; Z95.1 Presence of aortocoronary bypass graft; Z95.2 Presence of prosthetic heart valve; Z79.01 Long term (current) use of anticoagulants
CPT/HCPCS: 36415; 85610

== ENCOUNTER 2019-08-11 08:55 | Outpatient (RCR) | payer MEDICARE, SELFPAY ==
[2019-05-11 08:13] VITALS: BMI 35.4
[2019-08-11 09:38] LABS: International Normalized Ratio 2.4; Prothrombin Time (Protime)PT. 26.6 SECONDS (11.7-14.9)
== END 2019-08-11 18:00 | disposition home or self-care (01) ==
LOC: LAB 08:55
PROVIDERS: Referring Provider Internal Medicine Cardiovascular Disease; Visit Provider Internal Medicine Cardiovascular Disease
DX: I50.42 Chronic combined systolic (congestive) and diastolic (congestive) heart failure (principal); I48.0 Paroxysmal atrial fibrillation; Z95.1 Presence of aortocoronary bypass graft; I25.10 Atherosclerotic heart disease of native coronary artery without angina pectoris; Z79.01 Long term (current) use of anticoagulants; E78.5 Hyperlipidemia, unspecified; I43 Cardiomyopathy in diseases classified elsewhere; I35.0 Nonrheumatic aortic (valve) stenosis; Z95.2 Presence of prosthetic heart valve
CPT/HCPCS: 36415; 85610

== ENCOUNTER 2019-09-08 09:06 | Outpatient (RCR) | payer MEDICARE, SELFPAY ==
[2019-05-11 08:13] VITALS: BMI 35.4
[2019-09-08 10:43] LABS: Prothrombin Time (Protime)PT. 31.3 SECONDS (11.7-14.9)
== END 2019-09-08 18:00 | disposition home or self-care (01) ==
LOC: LAB 09:06
PROVIDERS: Referring Provider Internal Medicine Cardiovascular Disease; Visit Provider Internal Medicine Cardiovascular Disease
DX: I50.42 Chronic combined systolic (congestive) and diastolic (congestive) heart failure (principal); I48.0 Paroxysmal atrial fibrillation; I25.10 Atherosclerotic heart disease of native coronary artery without angina pectoris; E78.5 Hyperlipidemia, unspecified; I43 Cardiomyopathy in diseases classified elsewhere; I35.0 Nonrheumatic aortic (valve) stenosis; Z95.1 Presence of aortocoronary bypass graft; Z95.2 Presence of prosthetic heart valve; Z79.01 Long term (current) use of anticoagulants
CPT/HCPCS: 36415; 85610

== ENCOUNTER 2019-10-06 08:39 | Outpatient (RCR) | payer MEDICARE, SELFPAY ==
[2019-05-11 08:13] VITALS: BMI 35.4
[2019-10-06 09:31] LABS: International Normalized Ratio 2.7; Prothrombin Time (Protime)PT. 28.6 SECONDS (11.7-14.9)
== END 2019-10-26 18:00 | disposition home or self-care (01) ==
LOC: LAB 08:39
PROVIDERS: Referring Provider Internal Medicine Cardiovascular Disease; Visit Provider Internal Medicine Cardiovascular Disease
DX: I50.42 Chronic combined systolic (congestive) and diastolic (congestive) heart failure (principal); I48.0 Paroxysmal atrial fibrillation; I25.10 Atherosclerotic heart disease of native coronary artery without angina pectoris; Z79.01 Long term (current) use of anticoagulants; Z95.2 Presence of prosthetic heart valve; E78.5 Hyperlipidemia, unspecified; I43 Cardiomyopathy in diseases classified elsewhere; I35.0 Nonrheumatic aortic (valve) stenosis; Z95.1 Presence of aortocoronary bypass graft
CPT/HCPCS: 36415; 85610

== ENCOUNTER 2019-11-03 08:48 | Outpatient (RCR) | payer MEDICARE, SELFPAY ==
[2019-05-11 08:13] VITALS: BMI 35.4
[2019-11-03 09:25] LABS: International Normalized Ratio 2.5; Prothrombin Time (Protime)PT. 26.9 SECONDS (11.7-14.9)
== END 2019-11-03 18:00 | disposition home or self-care (01) ==
LOC: LAB 08:48
PROVIDERS: Referring Provider Internal Medicine Cardiovascular Disease; Visit Provider Internal Medicine Cardiovascular Disease
DX: I50.42 Chronic combined systolic (congestive) and diastolic (congestive) heart failure (principal); I48.0 Paroxysmal atrial fibrillation; I25.10 Atherosclerotic heart disease of native coronary artery without angina pectoris; E78.5 Hyperlipidemia, unspecified; I43 Cardiomyopathy in diseases classified elsewhere; I35.0 Nonrheumatic aortic (valve) stenosis; Z95.1 Presence of aortocoronary bypass graft; Z95.2 Presence of prosthetic heart valve; Z79.01 Long term (current) use of anticoagulants
CPT/HCPCS: 36415; 85610

== ENCOUNTER 2019-12-01 10:52 | Outpatient (RCR) | payer MEDICARE, SELFPAY ==
[2019-05-11 08:13] VITALS: BMI 35.4
[2019-11-27 11:03] VITALS: BMI 38.5
[2019-12-01 11:34] LABS: International Normalized Ratio 2.6; Prothrombin Time (Protime)PT. 27.7 SECONDS (11.7-14.9)
== END 2019-12-01 18:00 | disposition home or self-care (01) ==
LOC: LAB 10:52
PROVIDERS: Referring Provider Internal Medicine Cardiovascular Disease; Visit Provider Internal Medicine Cardiovascular Disease
DX: I48.0 Paroxysmal atrial fibrillation (principal); I50.42 Chronic combined systolic (congestive) and diastolic (congestive) heart failure; I25.10 Atherosclerotic heart disease of native coronary artery without angina pectoris; E78.5 Hyperlipidemia, unspecified; I43 Cardiomyopathy in diseases classified elsewhere; I35.0 Nonrheumatic aortic (valve) stenosis; Z95.1 Presence of aortocoronary bypass graft; Z95.2 Presence of prosthetic heart valve; Z79.01 Long term (current) use of anticoagulants
CPT/HCPCS: 36415; 85610

== ENCOUNTER 2020-01-01 08:24 | Outpatient (RCR) | payer MEDICARE, SELFPAY ==
[2019-11-27 11:03] VITALS: BMI 38.5
[2020-01-01 08:56] LABS: International Normalized Ratio 2.3
== END 2020-01-01 18:00 | disposition home or self-care (01) ==
LOC: LAB 08:24
PROVIDERS: Referring Provider Internal Medicine Cardiovascular Disease; Visit Provider Internal Medicine Cardiovascular Disease
DX: I48.0 Paroxysmal atrial fibrillation (principal)
CPT/HCPCS: 36415; 85610

== ENCOUNTER 2020-01-29 09:00 | Outpatient (RCR) | payer MEDICARE, SELFPAY ==
[2019-11-27 11:03] VITALS: BMI 38.5
[2020-01-29 09:56] LABS: International Normalized Ratio 2.6; Prothrombin Time (Protime)PT. 27.7 SECONDS (11.7-14.9)
== END 2020-02-26 18:00 | disposition home or self-care (01) ==
LOC: LAB 09:00
PROVIDERS: Physician Assistant Medical; Referring Provider Internal Medicine Cardiovascular Disease; Visit Provider Internal Medicine Cardiovascular Disease
DX: I48.0 Paroxysmal atrial fibrillation (principal)
CPT/HCPCS: 36415; 85610

== ENCOUNTER 2020-03-26 10:04 | Outpatient (RCR) | payer MEDICARE, SELFPAY ==
[2019-11-27 11:03] VITALS: BMI 38.5
[2020-02-28 10:09] LABS: International Normalized Ratio 2.5; Prothrombin Time (Protime)PT. 26.6 SECONDS (11.7-14.9)
[2020-03-26 11:43] LABS: International Normalized Ratio 2.5; Prothrombin Time (Protime)PT. 26.5 SECONDS (11.7-14.9)
== END 2020-03-26 18:00 | disposition home or self-care (01) ==
LOC: LAB 10:04
PROVIDERS: Referring Provider Internal Medicine Cardiovascular Disease; Visit Provider Internal Medicine Cardiovascular Disease
DX: I48.0 Paroxysmal atrial fibrillation (principal)
CPT/HCPCS: 36415; 85610

== ENCOUNTER 2020-05-01 09:52 | Outpatient (RCR) | payer MEDICARE, SELFPAY ==
[2019-11-27 11:03] VITALS: BMI 38.5
[2020-05-01 10:44] LABS: International Normalized Ratio 2.6; Prothrombin Time (Protime)PT. 27.7 SECONDS (11.7-14.9)
== END 2020-05-01 18:00 | disposition home or self-care (01) ==
LOC: LAB 09:52
PROVIDERS: Referring Provider Internal Medicine Cardiovascular Disease; Visit Provider Internal Medicine Cardiovascular Disease
DX: I48.0 Paroxysmal atrial fibrillation (principal)
CPT/HCPCS: 36415; 85610